=== PATIENT | male | born 1955 | race Caucasian/White ===

== ENCOUNTER 2022-09-10 00:38 | Day surgery (SDC) | payer MEDICARE, SELFPAY ==
[2022-09-03 08:41] VITALS: BMI 22.4
[2022-09-10 08:14] VITALS: BP 103/67; PULSE 113; RESP 20; TEMP 36.3; O2SAT 98
[2022-09-10] MEDS: LACTATED RINGERS 1,000 ML 150 ML IV CONT (08:25)
--- NOTE | 2022-09-10 08:38 | PM.HPGS ---
History of Present Illness History of Present Illness Consent: Risks, benefits, and alternatives have been discussed and questions answered. Patient agrees to proceed with procedure. Chief complaint: GERD, Hx of colon polyps Narrative: Shady Herman is a 67 year old male with large polyps removed about 2 years ago, also gerd relatively well controlled with famotidine but no recent egd Review of Systems Constitutional: Constitutional: Denies headache(s) and Denies weakness Eyes: Eyes: Denies blurry vision ENT: Reports Normal hearing present, Denies headache(s) and Denies neck pain Cardiovascular: Cardiovascular: Denies chest pain and Denies dyspnea Respiratory: Respiratory: Denies dyspnea Gastrointestinal: Gastrointestinal: Reports no additional gastrointestinal complaints Genitourinary: Genitourinary: Denies dysuria Musculoskeletal: Musculoskeletal: Denies neck pain Integumentary/Breasts: Skin/Breast: Denies dry skin Neurologic: Reports Normal hearing present, Denies headache(s) and Denies weakness Psychiatric: Psychiatric: Denies anxiety Endocrine: Endocrine: Denies change in body appearance Hematologic/Lymphatic: Hematologic/Lymphatic: Denies easy bleeding Allergic/Immunologic: Allergic/Immunologic: Denies urticaria PMF Past Medical History Medical History (Updated 05/06/22 @ 08:38 by Duke Tidwell MD) Adenomatous colon polyp Allergies Coronary artery disease GERD (gastroesophageal reflux disease) Heart disease Hypertension Social History Social History Smoking packs per day: 1.5 Smoking cigarettes per day: 30.0 Years smoked: 31 Smoking pack-years: 46.50 Smoking status: Former smoker Tobacco type: cigarettes Smoking end date: 09/26/08 Alcohol intake: never Substance use: never Substance use type: does not use Living arrangements: with family Spiritual care concerns: No Meds Home Medications and Allergies Home Medications Medication Instructions Recorded Confirmed Type aspirin 81 mg tablet,delayed 81 mg PO DAILY 09/03/21 09/10/22 History release clopidogrel 75 mg tablet 75 mg PO DAILY 09/03/21 09/10/22 History metoprolol succinate 100 mg 100 mg PO BID 09/03/21 09/10/22 History tablet,extended release 24 hr simvastatin 20 mg tablet 20 mg PO HS 09/03/21 09/10/22 History famotidine 20 mg tablet 20 mg PO BID 07/30/22 09/10/22 History Allergies Allergy/AdvReac Type Severity Reaction Status Date / Time Heparin Analogues Allergy Mild Unknown Verified 09/10/22 08:12 Vital Signs Vital Signs - 24 hr 09/10/22 08:14 Temperature 97.3 F L Pulse Rate 113 H Respiratory Rate 20 Blood Pressure 103/67 Pulse Oximetry 98 Oxygen Delivery Room Air Exam Const: General: comfortable and no acute distress HENMT: Face/Nose/Sinus: Normal nares present Eyes: General: appearance normal, both eyes and all related structures Neck: Neck: no JVD Resp: Auscultation: clear to auscultation bilaterally Cardio: Rate: regular rate Rhythm: regular rhythm GI: Inspection: non-distended GI Palp: Yes Soft to palpation Skin: General skin exam: normal color Neuro: General: gait normal Speech: normal speech Extrem: General: normal to inspection Psych: Mental Status: mental status grossly normal Assessment and Plan Assessment and plan (1) Adenomatous colon polyp: Code(s): D12.6 - Benign neoplasm of colon, unspecified Status: Acute Assessment and Plan: colonoscopy (2) GERD (gastroesophageal reflux disease): Code(s): K21.9 - Gastro-esophageal reflux disease without esophagitis Status: Acute Assessment and Plan: egd with bx on pepcid
--- NOTE | 2022-09-10 08:38 | WPDANESEPPF ---
Anes - Initial Pre Proc Eval Procedure: Operation Date: 09/10/22 09:00 Proposed Procedures p Esophagogastroduodenoscopy & Screening Colonoscopy - Duke Tidwell MD Date/Time: 09/10/22 08:38 Surgeon: Duke Tidwell MD Pre Op Diagnosis: GERD, Hx of colon polyps Patient Data Age: 67 Gender: M Height: 1.83 m Weight: 68.8 kg Last Vital Signs Temp 97.3 F L 09/10/22 08:14 Pulse 113 H 09/10/22 08:14 Resp 20 09/10/22 08:14 BP 103/67 09/10/22 08:14 Pulse Ox 98 09/10/22 08:14 O2 Del Method Room Air 09/10/22 08:14 Allergies Allergy/AdvReac Type Severity Reaction Status Date / Time Heparin Analogues Allergy Mild Unknown Verified 09/10/22 08:12 Home Medications Medication Instructions Recorded Confirmed Type aspirin 81 mg tablet,delayed 81 mg PO DAILY 09/03/21 09/10/22 History release clopidogrel 75 mg tablet 75 mg PO DAILY 09/03/21 09/10/22 History metoprolol succinate 100 mg 100 mg PO BID 09/03/21 09/10/22 History tablet,extended release 24 hr simvastatin 20 mg tablet 20 mg PO HS 09/03/21 09/10/22 History famotidine 20 mg tablet 20 mg PO BID 07/30/22 09/10/22 History Patient hx anesthesia problems: none Family hx anesthesia problems: none Results Review: All pre-operative results and documents have been reviewed as part of the pre-operative evaluation. [facility] Past Medical History Medical History (Updated 05/06/22 @ 08:38 by Duke Tidwell MD) Adenomatous colon polyp Allergies Coronary artery disease GERD (gastroesophageal reflux disease) Heart disease Hypertension Social History Social History Smoking packs per day: 1.5 Smoking cigarettes per day: 30.0 Years smoked: 31 Smoking pack-years: 46.50 Smoking status: Former smoker Tobacco type: cigarettes Smoking end date: 09/26/08 Alcohol intake: never Substance use: never Substance use type: does not use Living arrangements: with family Spiritual care concerns: No Anes - Eval Final PreProcedure Day of Procedure 09/10/22 08:38 Patient weight: normal Heart: regular rate and rhythm Lungs: clear to auscultation Airway: Mallampati scale class II Neurological: alert and oriented Last oral intake: >/= 8 hours ASA classification: III Emergent: no Anesthetic plan: proceed Anesthesia type and monitoring: general GIVS and standard monitoring Results Review: All pre-operative results and documents have been reviewed as part of the pre-operative evaluation. Informed Consent: The patient's anesthetic plan and its attendant risks and benefits were discussed with the patient/family/POA. Questions were solicited and answers provided to the satisfaction of the patient/family/POA.
--- NOTE | 2022-09-10 09:08 | SUR.OPER ---
EGD END TIME 853 COLON START TIME 858
[2022-09-10 09:13] VITALS: BP 132/108; PULSE 89; RESP 30; O2SAT 100
[2022-09-10 09:23] VITALS: BP 116/89; PULSE 105; RESP 23; O2SAT 100
[2022-09-10 09:27] VITALS: BP 98/63; PULSE 107; RESP 23; O2SAT 100
== END 2022-09-10 09:37 | disposition home or self-care (01) ==
PROVIDERS: PCP Internal Medicine; Visit Provider Internal Medicine Gastroenterology
PROC: 0DJ08ZZ Inspection of Upper Intestinal Tract, Via Natural or Artificial Opening Endoscopic (ICD-10-PCS; CPT 43235; principal; 2022-09-10 09:00)
DX: Z12.11 Encounter for screening for malignant neoplasm of colon (principal); K57.30 Diverticulosis of large intestine without perforation or abscess without bleeding; D12.0 Benign neoplasm of cecum; K21.9 Gastro-esophageal reflux disease without esophagitis; K29.70 Gastritis, unspecified, without bleeding; I25.10 Atherosclerotic heart disease of native coronary artery without angina pectoris; I11.9 Hypertensive heart disease without heart failure; Z87.891 Personal history of nicotine dependence; Z79.02 Long term (current) use of antithrombotics/antiplatelets; Z79.82 Long term (current) use of aspirin
CPT/HCPCS: 43239; 45385; 87081; 88305; 88342; J2704; J7120

== ENCOUNTER 2023-04-06 09:11 | Outpatient (CLI) | payer MEDICARE, SELFPAY ==
--- NOTE | ~2023-04-06 | CT_ITS ---
EXAMINATION: CT lung screening DATE: 04/06/2023 09:27 INDICATION: Personal history of nicotine dependence, prior smoker with 30 pack year history TECHNIQUE: Computed tomography (CT) of the chest was performed without intravenous contrast. The dose -length product (DLP) was 96.65 mGy-cm. Automated exposure control and iterative reconstruction techn ique were employed. COMPARISON: None FINDINGS: There is moderate to severe emphysema. There are areas of scarring in the lower lobes. Smal l nodules of the right upper lobe measure up to 3 mm. There is a 5 mm nonsolid nodule of the right nicolas ng apex. No pleural effusion or pneumothorax. There are changes of coronary artery bypass grafting. C ardiomegaly is noted. There are no pathologically enlarged thoracic lymph nodes. Venous collaterals a re noted in the chest wall. A dual-lead cardiac pacemaker of the left chest wall ends with leads in e xpected locations. Cholelithiasis is noted. There is severe scarring and atrophy posterior medially i n the right kidney. IMPRESSION: 1. Lung-RADS category 2: Benign appearance or behavior. Continue annual screening with noncontrast lo w-dose chest CT in 12 months. Reviewed, dictated and finalized at location B. IMPRESSION: 1. Lung-RADS category 2: Benign appearance or behavior. Continue annual screeni ng with noncontrast low-dose chest CT in 12 months.
== END 2023-04-06 09:12 | disposition home or self-care (01) ==
PROVIDERS: PCP Internal Medicine; Visit Provider Registered Nurse
DX: Z12.2 Encounter for screening for malignant neoplasm of respiratory organs (principal); F17.211 Nicotine dependence, cigarettes, in remission
CPT/HCPCS: 71271

== ENCOUNTER 2025-04-10 09:58 | Outpatient (CLI) | payer MEDICARE, SELFPAY ==
--- NOTE | ~2025-04-10 | CT_ITS ---
CT Scan of the Chest without Contrast: Clinical Indication: Lung cancer screening, nicotine dependence Technique: Contiguous sections were acquired throughout the chest without intravenous contrast. Dose reduction technique was used on this scan by utilizing automated exposure control and iterative recon struction technique. The dose-length product (DLP) was 112.20 mGy-cm. COMPARISON: 04/06/2023 Findings: There is no evidence of any significant mediastinal, hilar or axillary lymphadenopathy. There are ath erosclerotic calcifications of the aorta and coronary arteries. There is no evidence of pleural or pericardial effusion. Stable right apical groundglass nodule. Stable 3 mm apical nodule. Stable scarring right upper lobe p osteriorly. Stable bilateral lower lobe scarring. Stable nodularity with calcification at the right l beto base. Bibasilar emphysematous change present. Images through the upper abdomen reveal small calcified gallstone. Impression: Lung RADS 2: Benign appearance. 12 month follow-up screening CT advised. Reviewed, dictated and finalized at location . Impression: Lung RADS 2: Benign appearance. 12 month follow-up screening CT advised.
== END 2025-04-10 09:59 | disposition home or self-care (01) ==
PROVIDERS: PCP Internal Medicine; Visit Provider Registered Nurse
DX: Z12.2 Encounter for screening for malignant neoplasm of respiratory organs (principal); Z87.891 Personal history of nicotine dependence
CPT/HCPCS: 71271

== ENCOUNTER 2025-05-05 16:10 | Inpatient (IN) | payer MEDICARE, SELFPAY ==
[2025-05-05] VITALS (15 sets, daily range): BP systolic 120–151; BP diastolic 73–102; PULSE 70–120; RESP 12–21; TEMP 36.3–36.7; O2SAT 96–100; BMI 20.8
--- NOTE | ~2025-05-05 | US_ITS ---
EXAMINATION:US venous doppler LE BI INDICATION:Leg pain TECHNIQUE: Multiple grayscale, color flow and Doppler images of the right and left lower extremity de ep venous systems were obtained and reviewed. COMPARISON:No prior studies for comparison. FINDINGS: The common femoral, superficial femoral and popliteal veins demonstrate normal respiratory variation, augmentation and compressibility. Color flow is also seen within the posterior tibial, pe roneal, greater saphenous and profunda veins. IMPRESSION: 1: No lower extremity deep venous thrombosis. Reviewed, dictated and finalized at location A.
--- NOTE | ~2025-05-05 | CT_ITS ---
EXAMINATION: CTA chest PE protocol DATE: 05/05/2025 17:20 INDICATION: palpitations, tachycardia, hx PE TECHNIQUE: Computed tomography angiography (CTA) of the chest was performed with 100 mL Omnipaque-350 intravenous contrast timed to evaluate the pulmonary arteries. Coronal maximum intensity projection 3D-reconstructions were created by the technologist. The dose-length product (DLP) was 347.72 mGy-cm. Automated exposure control and iterative reconstruction technique were employed. COMPARISON: CT lung screening 04/10/2025 and 04/06/2023. FINDINGS: Lung parenchyma and airways: Architectural simplification and extensive scarring in the lower lungs. 9 mm groundglass nodule in the right upper lobe. 4 mm solid nodule in the right upper lobe, stable si nce 2022, likely benign. Patent airways. Pleura: Unremarkable. Thoracic inlet, axillae and chest wall: Asymmetric gynecomastia on the left. Venous collaterals in th e right chest wall. Thoracic aorta: No significant dilation. No dissection. Mediastinum: Dilated central pulmonary arteries enlarged pretracheal lymph nodes. Heart and pericardium: Status post CABG. Pacing leads terminating in good position. Cardiomegaly. RV/ LV ratio less than 1. Coronary artery calcifications: Moderate. Upper abdomen: Hepatic vein reflux. Gallstone versus adjacent vascular calcification. Right renal sca rring. Bones: No acute osseous finding. Pulmonary arteries: Study quality: Motion artifact limits evaluation of the subsegmental and segmenta l right middle lobe and right lower lobe pulmonary arteries. Small nonocclusive segmental pulmonary e mboli in the right upper lobe. IMPRESSION: Small nonocclusive segmental pulmonary emboli in the right upper lobe. Small clot burden, noting inad equate visualization of the subsegmental and segmental arteries in the right middle lobe and right lo wer lobe. RV/LV ratio less than 1. Hepatic vein reflux as can be seen with right heart dysfunction. 9 mm anterior groundglass nodule in the right upper lobe, slightly increased in size since 2022 exami nation, recommend referral for resection. Asymmetric left gynecomastia, recommend mammography and breast ultrasound. Mediastinal lymphadenopathy. Reviewed, dictated and finalized at location K. IMPRESSION: Small nonocclusive segmental pulmonary emboli in the right upper lobe. Small cl ot burden, noting inadequate visualization of the subsegmental and segmental ar teries in the right middle lobe and right lower lobe. RV/LV ratio less than 1. Hepatic vein reflux as can be seen with right heart dysfunction. 9 mm anterior groundglass nodule in the right upper lobe, slightly increased in size since 2022 examination, recommend referral for resection. Asymmetric left gynecomastia, recommend mammography and breast ultrasound. Mediastinal lymphadenopathy.
--- OUTSIDE RECORDS SUMMARY | 2025-05-05 16:13 | XMS_ITS | Continuity of Care Document ---
Author Organization [facility] Address [address] [place] [address] Phone Care Team Providers Care Entertainment Usher Name Role Phone María Mike MD Unavailable Unavailable Allergies, Adverse Reactions, Alerts Substance Reaction Status Criticality No Known Drug Allergies Other Active No I nformation Medications Medication Instructions Dosage Effective Dates (start - stop) Status Comments COUMADIN 7.5 MG TABLET 1 QD-daily - Active ENALAPRIL MALEATE 20MG TABS 1 BID - Active ZOCOR 20MG TABS 1 QHS - Active BRAND NAME ONLY. PLEASE CALL PT WHEN RXS ARE READY ENALAPRIL MALEATE 20MG TABS 1 BID - Active ACCUPRIL 40 MG TABLET 1 QD-daily - Active ATENOLOL 100 MG TABLET 1 QD - Active MAXZIDE 75-50MG TABS 1 QD - Active FUROSEMIDE 40MG TABS 1.5 BID - Active COUMADIN 6 MG TABLET 1 QD-daily - No Longer Active COUMADIN 6 MG TABLET 1 QD-daily - No Longer Active COUMADIN 7.5 MG TABLET 1 QD-daily - No Longer Active COUMADIN 6 MG TABLET 1 QD-daily - No Longer Active ATENOLOL 100 MG TABLET 1 QD - No Longer Active ATENOLOL 50MG TABS 1 QD - No Longer Active LOPRESSOR 50MG TABS 1 QID - No Longer Active COUMADIN 4MG TABS 1 QD No Longer Active ACCUPRIL 20MG TABS 1 QD No Longer Active Advance Directives Directive Yes / No Effective Date File Name No Information Encounters Encounter Description Practice Location Reason(s) For Visit Diagnoses Date Provider Providers Copied on Encounter [facility], [address], [place], [place], [address] , tel:[phone] [facility] No Information 1 Cee Mcknight. [address], [address], [place], [place], [address], . tel: [phone] [facility], [address], [place], [place], [address] , tel: [phone] [facility] LONG-TERM USE ANTICOAGULATRI AL FIBRILLATION 7 Cee Mcknight. [address], [address], [place], [place], [address], . tel: [phone] [facility], [address], [place], [place], [address] , tel:[phone] [facility] DVRTCLO COLON W HMRHG 3 6 Cee Mcknight. [address], [address], [place], [place], [address], . tel: [phone] [facility], [address], [place], [place], [address] , tel:[phone] [facility] LONG-TERM USE MEDS NECVACCIN FOR INFLUENZABENIG N HYPERTENSIONSC REEN LIPOID DISORDERSHYPER LIPIDEMIA NEC/NOS 4200 6 Cee Mcknight. [address], [address], [place], [place], [address], . tel: [phone] [facility], [address], [place], [place], [address] , tel:[phone] [facility] DEEP PHLEBITIS-LEG NEC 8200 6 Cee Mcknight. [address], [address], [place], [place], [address], [place]. tel:[phone] [facility], [address], [place], [place], [address] , tel:[phone] [facility] CHR ISCHEMIC HRT DIS NOS 6 eCe Mcknight. [address], [address] , [place], [place], [address], [place]. tel:[phone] [facility], [address], [place], [place], [address] , [place] tel:[phone] [facility] CHF NOS 6 Conversion Doctor. [address] [place] [address], [place], [address], [place]. [facility], [address], [place], [place], [address] , tel:[phone] [facility] PULM EMBOL/INFARCT NEC 5 Cee Mcknight. [address] , [place], [place], [address], [place]. tel:[phone] [facility], [address], [place], [place], [address] , [place] tel:[phone] [facility] MITRAL VALVE DISORDER 5 Cee Mcknight. [address], [address] , [place], [place], [address], [place]. tel:[phone] [facility], [address], [place], [place], [address] , [place] tel:[phone] [facility] No Information 5 Cee Mcknight. [address], [address], [place], [place], [address], [place]. tel:[phone] [facility], [address], [place], [place], [address] , tel: [facility] HISTORY OF TOBACCO USEBENIGN NEOPLASM SKIN NOS 5 Cee Mcknight. [address], [address] , [place], [place], [address], [place]. tel:[phone] [facility], [address], [place], [place], [address] , [place] tel:[phone] [facility] VACCIN FOR INFLUENZA 3-200 3 Conversion Doctor. [address] [facility], [place], [address], [place]. [facility], [address], [place], [place], [address] , [place] tel: [facility] CARDIAC DYSRHYTHMIA NOS May- 8200 3 Eduard Peterson. [address], [address], [place], [place], [address], [place]. tel:[phone] [facility], [address], [place], [place], [address] , [place] tel: [facility] TACHYCARDIA NOS 9200 3 Cee Mcknight. [address], [address] , [place], [place], [address], [place]. tel:[phone] [facility], [address], [place], [place], [address] , [place] tel: [facility] ABDMNAL PAIN GENERALIZED 8200 3 Cee Mcknight. [address], [address], [place], [place], [address], [place]. tel:[phone] [facility], [address], [place], [place], [address] , [place] tel:[phone] Administration NONRHEUM TRICUSP MAURA DIS Byron- 5-200 1 Cee Mcknight. [address], [address], [place], [place], [address], [place]. tel:[phone] [facility], [address], [place], [place], [address] , [place] tel:[phone] [facility] GENERAL OSTEOARTHROSIS Apr-0 4-200 1 Cee Mcknight. [address], [address], [place], [place], [address], [place]. tel:[phone] [facility], [address], [place], [place], [address] , tel: [phone] Howard HUGO ND VAC STRPTCS PNEUMNI B 9-200 0 Conversion Doctor. [facility] [address] [facility], [place], [address], . Family History Family Member Type Diagnosis Age At Onset No Information Immunizations Vaccine Date Status Comments 67422 - Influenza administered Source: [place] Unspecified 96634 - Influenza administered Source: [place]specified 93007 - Influenza administered Source: [place] Unspecified 17292 - Pneumococcal_PPV23 administered S ource: Source Unspecified Payers Payer name Insurance type Covered alliance party ID Authoriza tion(s) No Information Social History Type Description Quantity Date Captured Comments Sex Male Smoking Status No Information Chief Complaint And Reason For Visit No Information Reason For Referral Reason For Referral No Information History Of Present Illness Encounter Date Complaint History Of Prese nt Illness No Information Functional Status Date Functional Assessmen t No Information Instructions Date Instruction Additional Infor mation No Information Assessments Type Assessment Date No Information Patient Care Teams Name Effective Dates (start - stop) Status Members No Information
--- OUTSIDE RECORDS SUMMARY | 2025-05-05 16:13 | XMS_ITS | Encounter Summary ---
Author Organization [facility] Address [facility] [place] [address] Care Team Providers Care Custom Framing Specialist Name Role Phone Anna Paredes Primary Care Provider [phone] Sissy Rice RN Unavailable [phone] Richard Montague MD Unavailable [phone] Encounter Details Date Type Department Care Team (Late st Contact Info) Description 02/11/2021 Prep for Procedure [facility] [place], [place] [id number] Eric Rowell MD [address] [id number] Social History Tobacco Use Types Packs/Day Years Used Date Smoking Tobacco: Former Cigarettes 1.5 31 0 01/15/1978 - 01/15/2009 Smokeless Tobacco: Never Alcohol Use Standard Drinks/Week Comments No 0 (1 standard drink = 0.6 oz pur e alcohol) AUDIT-C Answer Date Recorded Frequency of Alcohol Consumption Never 03/02/2019 Average Number of Drinks Not on file 019 Frequency of Binge Drinking Not on file 03/2019 PHQ-2 Answer Date Recorded PHQ-2 Score 0 08/21/2019 Sex and Gender Information Value Date Recorded Sex Assigned at Male 03/27/2025 8:46 AM CDT Legal Sex Male 6:56 PM CDT Gender Identity Not on file Sexual Orientation Not on file COVID-19 Exposure Response Date Recorded In the last month, have you been in contact with someone who was confirmed or suspected to have Coronavirus / COVID-19? No / Unsure 02/11/2021 1:18 PM CDT documented as of this encounter Plan of Treatment Not on file documented as of this encounter Results * PRE-SURGICAL/PRE-PROCEDURE CORONAVIRUS (COVID 19) (02/16/2021 11:10 AM CDT) CORONAVIRUS SARS COV 2 PCR (RESP) NOT DETECTED NOT DETECTED 02/17/2021 12:46 PM CDT [facility] Comment: A Not Detected (negative) test result for this test means that SARS-CoV-2 RNA was not present in the specimen above the limit of detection. A negative result does not rule out the possibility of COVID-19 and should not be used as the sole basis for treatment or patient management decisions. If COVID-19 is still suspected, based on exposure history together with other clinical findings, re-testing should be considered in consultation with public health authorities. Laboratory test results should always be considered in the context of clinical observations and epidemiological data in making a final diagnosis and patient management decisions. This patient specimen was tested using an FDA EUA pooling method. Negative results from pooled testing should not be treated as definitive. If the patient's clinical signs and symptoms are inconsistent with a negative result or results are necessary for patient management, then the patient should be considered for individual testing. In very rare cases, estimated at about 8 in 1,000 (0.8%) or less patient specimens with low viral loads may not be detected in sample pools due to the decreased sensitivity of pooled testing. Please review the Fact Sheets and FDA authorized labeling available for health care providers and patients using the following websites: https://www.[employer]/home/Covid-19/HCP/rc- jyfe-zpo5-ytyv-sheet.html https://www.[employer]/home/Covid-19/Patients/ az-yczz-uoq8-fact-sheet.html This test has been authorized by the FDA under an Emergency Use Authorization (EUA) for use by authorized laboratories. Due to the current public health emergency, [facility] is receiving a high volume of samples from a wide variety of swabs and media for COVID-19 testing. In order to serve patients during this public health crisis, samples from appropriate clinical sources are being tested. Negative test results derived from specimens received in non-commercially manufactured viral collection and transport media, or in media and sample collection kits not yet authorized by FDA for COVID-19 testing should be cautiously evaluated and the patient potentially subjected to extra precautions such as additional clinical monitoring, including collection of an additional specimen. Methodology: Nucleic Acid Amplification Test (NAAT) includes RT-PCR or TMA Additional information about COVID-19 can be found at the [facility] website: www.[employer]/Covid19. Test performed at [facility] [address] [address] [place] [address] Director: ALEXI ALFARO DO,MPH FIRST TEST NO 02/16/2021 12:41 PM CDT [facility] EMPLOYED IN HEALTHCARE NO 02/16/2021 12:41 PM CDT [facility] SYMPTOMATIC DEFINED BY CDC NO 02/16/2021 12:41 PM CDT [facility] DATE OF SYMPTOM ONSET UNKNOWN 02/16/2021 12:45 PM CDT [facility] HOSPITALIZATION STATUS NO 02/16/2021 12:41 PM CDT [facility] PATIENT IN ICU NO 02/16/2021 12:41 PM CDT [facility] RESIDENT OF [facility] NO 02/16/2021 12:41 PM CDT [facility] UNKNOWN 02/16/2021 12:45 PM CDT [facility] PATIENT'S RACE WHITE OR 02/16/2021 12:41 PM CDT [facility] ETHNICITY NONHISPANIC 02/16/2021 12:41 PM CDT [facility] SOURCE (QST) NASOPHARYNGEAL SWAB 02/16/2021 12:41 PM CDT [facility] NASOPHARYNGEAL SWAB / Unknown 02/16/2021 11:10 AM CDT us Eric Rowell MD MICROBIOLOGY - GENERAL ORDERABLE S Final Result [facility] [address] [place] [address], [email or web address] [address] [place] [address], documented in this encounter Visit Diagnoses Diagnosis Colonic mass- Primary Other specified disorder of intestines documented in this encounter Additional Health Concerns Infection Onset Date Last Indicated Resolved Time COVID-19 Rule Out 02/16/2021 02/16/2021 02/17/2021 12:46 PM CDT documented as of this encounter Care Teams Custom Framing Specialist Relationship Specialty Start Date End Date Anna Paredes APNP [address] [place] [address] PCP - General FAMILY PRACTICE 08/29/18 Sissy Rice, RN [address] [facility] [address] [place] [address] Replenishment Specialist (Ambulatory) REGISTERED NURSE 10/02/19 Richard Montague MD [address] [facility] [address] [place] [address] VASCULAR SURGERY 02/02/21 documented as of this encounter
--- OUTSIDE RECORDS SUMMARY | 2025-05-05 16:13 | XMS_ITS | Encounter Summary ---
Author Organization [facility] Address [facility] [place] [address] Care Team Providers Care Rn Infusion Name Role Phone Anna Paredes Primary Care Provider [phone] Akash Izquierdo MD Unavailable [phone] Sissy Rice RN Unavailable [phone] Richard Montague MD Unavailable [phone] Encounter Details Date Type Department Care Team (Late st Contact Info) Description 06/13/2020 Prep for Procedure [facility] [place], [place] [id number] Eric Rowell MD [address] [id number] Social History Tobacco Use Types Packs/Day Years Used Date Smoking Tobacco: Former Cigarettes Q uit: 01/15/2009 Smokeless Tobacco: Never Alcohol Use Standard [...] have Coronavirus / COVID-19? No / Unsure 06/16/2020 10:24 AM CDT documented as of this encounter Plan of Treatment Not on file documented as of this encounter Results * PRE-SURGICAL/PRE-PROCEDURE CORONAVIRUS (COVID 19) (06/13/2020 9:41 AM CDT) CORONAVIRUS SARS COV 2 PCR (RESP) NOT DETECTED NOT DETECTED 06/14/2020 10:25 PM CDT [facility] Comment: A Not Detected (negative) test result for this test means that SARS- CoV-2 RNA was not present in the specimen [...] a final diagnosis and patient management decisions. Please review the Fact Sheets and FDA authorized labeling available for health care providers and patients using the following websites: https://[email or web address]/home/Covid-19/HCP/NAAT/fact-sheet2 https://[email or web address]/home/Covid-19/Patients/NAAT/ fact-sheet2 This test has been authorized by the FDA under an Emergency Use Authorization (EUA) for use by authorized laboratories. Due to the current public health emergency, [employer] is receiving a high volume of samples [...] Methodology: Nucleic Acid Amplification Test (NAAT) includes PCR or TMA Additional information about COVID-19 can be found at the [employer] website: [email or web address]. Test performed at [facility] [address] [place] [address] Director: ALEXI ALFARO DO,MPH FIRST TEST NO 06/13/2020 11:16 AM CDT [facility] EMPLOYED IN HEALTHCARE NO 06/13/2020 11:16 AM CDT [facility] SYMPTOMATIC DEFINED BY CDC NO 06/13/2020 11:16 AM CDT [facility] DATE OF SYMPTOM ONSET =FASTING UNKNOWN 06/13/2020 11:17 AM CDT [facility] HOSPITALIZATION STATUS NO 06/13/2020 11:16 AM CDT [facility] PATIENT IN ICU NO 06/13/2020 11:16 AM CDT [facility] RESIDENT OF [facility] NO 06/13/2020 11:16 AM CDT [facility] NOT 06/13/2020 11:17 AM CDT [facility] PATIENT'S RACE WHITE OR 06/13/2020 11:16 AM CDT [facility] ETHNICITY NONHISPANIC 06/13/2020 11:16 AM CDT [facility] SOURCE (QST) NASOPHARYNGEAL SWAB 06/13/2020 11:16 AM CDT [facility] NASOPHARYNGEAL SWAB / Unknown 06/13/2020 9:41 AM CDT us Eric Rowell MD MICROBIOLOGY - GENERAL ORDERABLE S Final Result [facility] [address] [place] [address], [facility] [address] [address], documented in this encounter Visit Diagnoses Diagnosis Screening for colorectal cancer- Primary Special screening for malignant neoplasms, colon documented in this encounter Additional Health Concerns Infection Onset Date Last Indicated Resolved Time COVID-19 Rule Out 06/13/2020 06/13/2020 06/14/2020 10:25 PM CDT COVID-19 Rule Out 02/16/2021 02/16/2021 02/17/2021 12:46 PM CDT documented as of this encounter Care Teams Rn Infusion Relationship Specialty Start Date End Date Anna Paredes APNP [address] [place] [id number] PCP - General FAMILY PRACTICE 08/29/18 Akash Izquierdo MD [address] [place] [phone] PCP - [facility] - [facility] Attributed Provider 11/24/18 09/26/20 Sissy Rice, RN [address] [facility] [address] [place] [address] [employer] Machine Operator (Ambulatory) REGISTERED NURSE 10/02/19 Richard Montague MD [address] [facility] [address] [place] [address] VASCULAR SURGERY 02/02/21 documented as of this encounter
--- OUTSIDE RECORDS SUMMARY | 2025-05-05 16:13 | XMS_ITS | Clinical Summary ---
Author Organization [employer] [address] [facility] Address [address] [place] [address] Care Team Providers Care Lacer And Tier Name Role Phone Akash Izquierdo MD Primary Care Provider [phone] Allergies Active Allergy Reactions Criticality Noted Date Comments Heparin Unknown 06/14/2018 Heparin Agents Heparin Analogues Muscle Pain Medium 06/14/2018 Heparin Agents Mold Unknown 10/17/2012 Medications cetirizine (ZyrTEC) 10 mg tablet Take 10 mg by mouth 1 time daily as needed for Allergies. Active Flaxseed Oil Oil 100 mg by Misc.(Non-Drug; Combo Route) route daily. Active multivitamins-mi nerals-lutein (CENTRUM SILVER) Tablet Take 1 Tablet by mouth daily. Active clopidogreL (PLAVIX) 75 mg Tablet Take 75 mg by mouth daily. Active aspirin (ASPIR-81 ORAL) Take 1 Tablet by mouth daily. Active simvastatin (ZOCOR) 20 mg tablet TAKE 1 TABLET BY MOUTH ONCE DAILY AT BEDTIME 90 Tablet 2 Active Additional Information Patient taking differently: 20 mg Oral DAILY AT BEDTIME, Reported on 03/28/2025 pantoprazole (PROTONIX) 40 mg Tablet, Delayed Release (E.C.) Take 40 mg by mouth daily. 3 Active Biotin 10,000 mcg Capsule Take 1 Capsule by mouth daily. Active spironolactone (ALDACTONE) 25 mg tablet Take 1/2 (one-half) tablet by mouth once daily 30 Tablet 5 4 Active losartan (COZAAR) 50 mg tablet Take 1 Tablet (50 mg) by mouth daily. 100 Tablet 3 5 Active metoprolol succinate (TOPROL XL) 100 mg Extended Release 24 hour tabletIndication s:Encounter for long-term (current) use of medications Take 1 tablet by mouth twice daily 180 Tablet 1 5 Active Active Problems Patient Care Coordination No te Formatting of this note migh t be different from the original. Compound Worker - Dr. Bradford De Luna MD, [facility], [facility] Heart and Vascular - [address] [facility] Dr Calixto - [facility] - Vascular Surgery - Dr. Richard Montague [address] [place] [address] Problem Noted Date Diagnosed Date Decreased cardiac ejection fraction 02/28/2023 Overview (02/28/2023): Added automatically from request for surgery [id number] Coronary artery disease invo lving nome coronary artery of nome heart without angina pectoris 02/14/2020 Dyslipidemia 02/14/2020 Nonrheumatic mitral valve regurgitation 02/14/20 20 SSS (sick sinus syndrome) 12/14/2018 Cardiac pacemaker in situ 12/14/2018 Atypical atrial flutter 10/11/2018 Paroxysmal atrial fibrillation 06/29/2018 Symptomatic bradycardia 06/29/2018 Encounters Date Type Department Care Team Description 05/01/2025 External Device Data STL ABSTRACTION Provider, Abstract 04/17/2025 Results Follow-Up [facility] - [address] [facility] [id number] [address] Cassandra Krueger FNP ECHO COMPLETE - CONTRAST AND STRAIN IF INDICATED 04/16/2025 8:50 AM CDT - 04/16/2025 11:59 PM CDT Hospital Encounter [facility] Heart and Vascular Testing [facility] [address] [address] Cassandra Krueger FNP Discharge Disposition: Home or Self Care 03/28/2025 10:00 AM CDT Office Visit [facility] - [address] [facility] 300 [address] [facility] [address] [place] [address] Heart failure with mid-range ejection fraction (HFmEF) (CMS/HCC) (Primary Dx); Paroxysmal atrial fibrillation (CMS/HCC); Coronary artery disease involving nome coronary artery of nome heart without angina pectoris; NICM (nonischemic cardiomyopathy) (CMS/HCC); ICD (implantable cardioverter-defibril lator) in place; Mixed hyperlipidemia 03/12/2025 External Device Data STL ABSTRACTION Provider, Abstract 02/19/2025 2:30 PM CDT Procedure visit [facility] - [address] [facility] 202 [address] [facility] [address] [place] [address] Sick sinus syndrome (CMS/HCC) (Primary Dx); Atypical atrial flutter (CMS/HCC); Cardiac defibrillator in place; Chronic systolic congestive heart failure (CMS/HCC); Ischemic cardiomyopathy 02/19/2025 Results Follow-Up [facility] - [address] [place] [phone] [facility] [address] [place] [address] Eric Dodson MD ICD ANALYSIS REMOTE, UP TO 90 DAYS 02/13/2025 External Device Data STL ABSTRACTION Provider, Abstract 02/12/2025 External Device Data STL ABSTRACTION Provider, Abstract from Last 3 Months Family History Medical History Relation Name Comments Hypertension Brother Other Brother Myocardial infa rction, cause of Cancer Father Hypertension Father Hypertension Mother Relation Name Status Comments Brother Father Mother Social History Tobacco Use Types Packs/Day Years Used Date Smoking Tobacco: Former Cigarettes Q uit: 12/28/2008 Smokeless Tobacco: Never Tobacco Cessation:Counseling Given: Not Answered Alcohol Use Standard Drinks/Week Comments No 0 (1 standard drink = 0.6 oz pur e alcohol) Sex and Gender Information Value Date Recorded Sex Assigned at Not on file Legal Sex Male 5:45 PM CDT Gender Identity Not on file Sexual Orientation Not on file Last Filed Vital Signs Vital Sign Reading Time Taken Comments Blood Pressure 122/68 03/28/2025 9:50 AM CDT Pulse 80 03/28/2025 9:50 AM CDT Temperature 37.1 C (98.7 F) 09/01/2023 7:00 PM CELL ASSEMBLY PINNER Respiratory Rate 15 09/01/2023 7:00 PM CELL ASSEMBLY PINNER Oxygen Saturation 96% 12/11/2024 11:02 AM CDT Inhaled Oxygen Concentration - - Weight 71.8 kg (158 lb 6.4 oz) 03/28/2025 9:50 A M CDT Height 180.3 cm (5' 11) 03/28/2025 9:50 AM CDT Body Mass Index 22.09 03/28/2025 9:50 AM CDT Plan of Treatment Upcoming Encounters Date Type Department Care Team (Late st Contact Info) Description 05/21/2025 11:15 AM CDT Procedure visit [facility] - [address] [facility] 202 [address] [facility] [address] [place] [phone] 06/25/2025 9:00 AM CDT Office Visit [facility] - [address] [facility] 202 [address] [facility] [address] [place] [phone] Donita Barboru, SAWYER [address] [facility] 202 [place] [phone] 04/10/2026 9:30 AM CDT Office Visit [facility] - [address] [facility] 300 [address] [facility] [address] [place] [phone] Cassandra Krueger FNP [address] [facility] [address] [place] [address] Health Maintenance Due Date Last Done Comments DTAP/TDAP/TD VACCINES (1 - Tdap) 1976 PNEUMOCOCCAL VACCINE 50+ YEA RS (1 of 2 - PCV) 1976 FIT-DNA Q 3 years 2002 FIT/FOBT Q 1 year 2002 Flex Sig/CT Colonography Q 5 years 2002 ZOSTER VACCINE (1 of 2) 2007 RSV VACCINE (60+ or ) (1 - Risk 60-74 years 1-dose series) 2017 INFLUENZA VACCINE (#1) 2025 07/10/2024, 2022 COVID-19 Vaccine (6 - 2023-2 5 season) 2025 03/27/2025, 12/06/2021, 08/08/2021, Additional history exists COLORECTAL SCREENING 09/10/2032 09/10/2022, 02/20/20 Colorectal Cancer Screening 09/10/2032 Abdominal Aortic Aneurysm (A AA) Screening Completed 03/17/2021, 10/14/2020 Medical Devices Implanted Type Area Top Executive Device Identifier Shelf Expiration Date Model / Serial / Lot Defib Icd Resonate X4 Df4 Sound Engineer-D G447 - [id number] Implanted:Qt y: 1 on 09/01/2023 at [facility] Defibrillator Left: Chest [employer] BEN 06/16/2025 G447 / [id number] / Ra Lead-10/23/19 19 Implanted: by Darwin Calixto MD (Quantity not on file) Lead Heart FAD ? IO SCI- COLD ROLL PACKER SHEET IRON 10/10/2020 7741-52 / [id number] / [id number] Description:RA Lead Lead [place] 4 Front Af Sc 64cm 0673 - [id number] Implanted:Qt y: 1 on 09/01/2023 at [facility] Lead Left: Chest [employer]- SELMA INTERVENTIONS 03/17/2025 06 / [id number] / Lead Pace Acuity Sprl L 95cm X4 4 Plr 4675-95 - [id number] Implanted:Qt y: 1 on 09/01/2023 at [facility] Lead Left: Chest [employer] BEN 07/26/2024 [id number] / [id number] / [id number] Envelope Lrg Mr 2.9x3.3in Implant Mesh Pulse Gen Bag [id number] - [id number] Implanted:Qt y: 1 on 09/01/2023 at [facility] Mesh Left: Chest [employer]- CARD RHYTHM MGMT 05/26/2024 [id number] / / [id number] Explanted Type Area Top Executive Device Identifier Shelf Expiration Date Model / Serial / Lot Rv Lead- 9 Implanted: by Darwin Calixto MD (Quantity not on file) Explanted:Qty : 1 on 09/01/2023 by Junior Horowitz MD at [facility] Lead Heart [employer]- COLD ROLL PACKER SHEET IRON 05/21/2020 [id number] / [id number] / [id number] Description:Implant date 09/27 Upgrade to BiV ICD RV lead Pacemaker-09/27 Implanted: by Darwin Calixto MD (Quantity not on file) Explanted:Qty : 1 on 09/01/2023 by Junior Horowitz MD at [facility] Pacemaker Left: Chest [employer]- COLD ROLL PACKER SHEET IRON 08/22/2020 [id number] / [id number] / [id number] Description:Implant date 09/[address] Pacemaker Procedures Procedure Name Priority Date/Time Associated Diagnosis Comments ECHO COMPLETE Routine 04/16/2025 9:50 AM CDT NICM (nonischemic cardiomyopathy) (CMS/HCC) MA REM INTERROG PM/LDLS PM/IDS <90 D TECH REVIEW Routine 02/19/2025 5:28 PM CDT Sick sinus syndrome (CMS/HCC) Atypical atrial flutter (CMS/HCC) Cardiac defibrillator in place Chronic systolic congestive heart failure (CMS/HCC) Ischemic cardiomyopathy MA INTERROGATION EVAL REMOTE </90 D //CEMETERY LABORER LD DFB Routine 02/19/2025 5:28 PM CDT Sick sinus syndrome (CMS/HCC) Atypical atrial flutter (CMS/HCC) Cardiac defibrillator in place Chronic systolic congestive heart failure (CMS/HCC) Ischemic cardiomyopathy from Last 3 Months Results * ECHO COMPLETE - CONTRAST AND STRAIN IF INDICATED (04/16/2025 9:50 AM CDT) EJECTION FRACTION 42 INTERFACE SYSTEM 04/16/2025 9:05 AM CDT Narrative INTERFACE SYSTEM - 04/16/2025 11:50 AM CDT [facility] Heart and Vascular Testing Transthoracic Echocardiogram Patient: Shady Herman Study ID: [id number] Gender: M : 1955 Age: 69 Race: SUNG Height 180.3cm Study Date: 04/16/2025 Weight: 71.9kg Access. #: [id number] BP: 125 / 65 *Referring Physician:Cassandra Arredondo Brooke *Ordering Physician:Cassandra Arredondo *[employer] Supervisor:Maulik Perez RDCS, Consuelo hosiery mender: Nurse: Indications: NICM. History: PMH: CAD. HLD. SSS. Defibulator. PAF. Risk factors: The patient is a former tobacco user. Hypertension. STUDY CONCLUSIONS: SUMMARY: - Left ventricle: The cavity size was normal. Wall thickness was increased in a pattern of mild LVH. Global systolic function is moderately reduced. For Epic reporting: the left ventricular ejection fraction is 42% . There is moderate diffuse hypokinesis. Left ventricular diastolic function parameters are normal. - Aortic valve: Trivial regurgitation. - Mitral valve: Mild to moderate regurgitation. - Left atrium: The atrium is moderately dilated. - Right ventricle: The cavity size is normal. - Tricuspid valve: Moderate regurgitation. - Pulmonary arteries: Systolic pressure was mildly to moderately increased. The peak systolic pressure is 45mm Hg. - GLS = -10.4. Impressions: Compared to 12/13/23, the LV Ejection fraction is slightly lower. Comparison: Prior Study Date: 12/13/2023. Cardiac Anatomy: LEFT VENTRICLE: The cavity size was normal. Wall thickness was increased in a pattern of mild LVH. Global systolic function is moderately reduced. For Epic reporting: the left ventricular ejection fraction is 42% . There is moderate diffuse hypokinesis. Global longitudinal strain was -10.4% (GLS is abnormal if greater than -16, i.e. -15). Left ventricular diastolic function parameters are normal. AORTIC VALVE: Structurally normal valve. Trileaflet. There was no stenosis. Trivial regurgitation. The mean systolic gradient is 1mm Hg. The peak systolic gradient is 2mm Hg. The LVOT to aortic valve VTI ratio is 0.71. The valve area is 2.7cm^2. The ratio of LVOT to aortic valve peak velocity is 0.69. AORTA: Aortic root: The root is normal-sized. Ascending aorta: The vessel is normal-sized. MITRAL VALVE: Structurally normal valve. Mild to moderate regurgitation. The mean diastolic gradient is 1mm Hg. The peak diastolic gradient is 5mm Hg. LEFT ATRIUM: The atrium is moderately dilated. RIGHT VENTRICLE: The cavity size is normal. Pacer wire or catheter noted in right ventricle. Systolic function is mildly reduced. PULMONIC VALVE: Structurally normal valve. No significant regurgitation. TRICUSPID VALVE: Structurally normal valve. Moderate regurgitation. PULMONARY ARTERY: Systolic pressure was mildly to moderately increased. RIGHT ATRIUM: The atrium was normal in size. SYSTEMIC VEINS: Inferior vena cava: The IVC is normal-sized. PERICARDIUM: There is no pericardial effusion. Measurements Left ventricle Value Ref 12/13/2023 GLS, 2D -10.4 % --------- IVS, ED, LAX (H) 1.2 cm 0.6 - 1.0 LANA, LAX chord (N) 5.1 cm 4.2 - 5.8 5.6 LANA/bsa, LAX chord (N) 2.7 cm/m^2 2.2 - 3.0 2.9 IVS, ED (H) 1.2 cm 0.6 - 1.0 1.0 PW, ED (H) 1.4 cm 0.6 - 1.0 0.9 EDV, 2-p (N) 80 ml 62 - 150 128 ESV, 2-p (N) 46 ml 21 - 61 66 EF, 2-p (L) 42 % 52 - 72 49 SV, 2-p 34 ml --------- 62 SV/bsa, 2-p 17.8 ml/m^2 --------- 32.2 E', med angelina, TDI (N) 12.5 cm/sec >=7.0 6.4 E/e', med angelina, TDI 7 --------- 9 LVOT Value Ref 12/13/2023 Diam, S 2.2 cm --------- 2.3 Area 3.8 cm^2 --------- 4.2 Peak pradeep, S 0.54 m/sec --------- 0.56 VTI, S 11.5 cm --------- 10.1 Right ventricle Value Ref 12/13/2023 LANA minor ax, A4C base (N) 3.9 cm 2.5 - 4.1 5.4 LANA minor ax, A4C mid (N) 2.6 cm 1.9 - 3.5 4.2 LANA major ax, A4C (L) 5.2 cm 5.9 - 8.3 8.5 TAPSE, MM (L) 1.6 cm >=1.7 0.9 Pressure, S 45 mm Hg --------- 61 S' lateral (L) 9.4 cm/sec >=9.5 6.9 Left atrium Value Ref 12/13/2023 AP dim, ES (N) 4.0 cm 3.0 - 4.0 4.9 AP dim index, ES (N) 2.1 cm/m^2 1.5 - 2.3 2.5 SI dim, A4C 6.6 cm --------- 7.4 Area ES, A4C (H) 31 cm^2 <=20 30 Area/bsa ES, A4C 16.02 cm^2/m^2 --------- 15.49 SI dim, A2C 6.0 cm --------- 7.2 SI dim, shorter 6.0 cm --------- 7.2 Vol, ES, 1-p A2C (H) 100 ml 18 - 58 111 Vol/bsa, ES, 1-p A2C (H) 52 ml/m^2 11 - 43 58 Vol, ES, 2-p 110 ml --------- 107 Vol/bsa, ES, 2-p (H) 58 ml/m^2 16 - 34 55 LA/Ao root ratio 1.33 --------- 1.53 Aortic valve Value Ref 12/13/2023 Peak v, S 0.8 m/sec --------- 0.8 Mean v, S 0.48 m/sec --------- 0.49 VTI, S 16.1 cm --------- 14.7 Accel time 120 ms --------- Mean grad, S 1 mm Hg --------- 1 Peak grad, S 2 mm Hg --------- 3 LVOT/AV, VTI ratio 0.71 --------- 0.69 EMERSON, VTI 2.7 cm^2 --------- 2.9 EMERSON/bsa, VTI 1.42 cm^2/m^2 --------- 1.48 LVOT/AV, Vpeak ratio 0.69 --------- 0.7 EMERSON, Vmax 2.6 cm^2 --------- 2.9 EMERSON/bsa, Vmax 1.37 cm^2/m^2 --------- 1.5 Mitral valve Value Ref 12/13/2023 Peak E 0.82 m/sec --------- 0.59 Peak A 0.26 m/sec --------- 0.19 PHT 66 ms --------- Mean grad, D 1 mm Hg --------- Peak grad, D 5 mm Hg --------- Peak E/A ratio 3.2 --------- 3.1 MVA, PHT 3.3 cm^2 --------- MVA/bsa, PHT 1.74 cm^2/m^2 --------- Max MR v 4.44 m/sec --------- Peak LV-LA grad S 79 mm Hg --------- Pulmonic valve Value Ref 12/13/2023 Peak v, S 0.66 m/sec --------- 0.66 Peak grad, S 2 mm Hg --------- 2 Tricuspid valve Value Ref 12/13/2023 Peak E 0.47 m/sec --------- 0.45 TR peak v (H) 3.1 m/sec <=2.8 3.6 Peak RV-RA grad, S 40 mm Hg --------- 51 Aortic root Value Ref 12/13/2023 Root diam, 3.0 cm --------- 3.2 Ascending aorta Value Ref 12/13/2023 AAo AP diam, S 3.1 cm --------- 3.2 AAo AP diam/bsa, S 1.6 cm/m^2 --------- 1.7 Pulmonary artery Value Ref 12/13/2023 Pressure, S 45 mm Hg --------- Systemic veins Value Ref 12/13/2023 Estimated RA pressure 5 mm Hg --------- 10 Legend: (L) and (H) radha values outside specified reference range. (N) smith values inside specified reference range. Procedure data: MCHOD Comparison was made to the study of 12/13/2023. Procedure information: A transthoracic echocardiogram was performed. Image quality was adequate. Scanning was performed from the parasternal, apical, and subcostal acoustic windows. Transthoracic echocardiogram. Complete 2D, complete spectral Doppler, and color Doppler. Birthdate: Patient birthdate: 1955. Age: Patient is 69year(s) old. Sex: gender: male. Height: 180.3cm. 71in. Weight: 71.9kg. 158.4lb. Body mass index: 22.1kg/m^2. Body surface area: 1.91m^2. Blood pressure: 125/65 Study date: Study date: 04/16/2025. Study time: 09:05 AM. Prepared and Electronically Authenticated Jerzy Roberson [id number]:01 Procedure Note Jerzy Roberson MD - 07/22/2025 [facility] Transthoracic Echocardiogram Patient: Shady Herman Study ID:[id number] Gender: M :1955 Age: 69 Race: SUNG Height 180.3cm Study Date:04/16/2025 Weight: 71.9kg Access. #:[id number] BP: 125 /65 *Referring Physician:Cassandra Arredondo Brooke *Ordering Physician:* Cassandra Krueger *Wool Shearing Supervisor:* Jared Perez RDCS, T hosiery mender: Nurse: Indications: NICM. History: PMH: CAD. HLD. SSS. Defibulator. PAF. Risk factors: The patient michael former tobacco user. Hypertension. STUDY CONCLUSIONS: SUMMARY: - Left ventricle: The cavity size was normal. Wall thickness was increasedin a pattern of mild LVH. Global systolic function is moderately reduced.For Epic reporting: the left ventricular ejection fraction is 42% . Thereis moderate diffuse hypokinesis. Left ventricular diastolic functionparameters are normal. - Aortic valve: Trivial regurgitation. - Mitral valve: Mild to moderate regurgitation. - Left atrium: The atrium is moderately dilated. - Right ventricle: The cavity size is normal. - Tricuspid valve: Moderate regurgitation. - Pulmonary arteries: Systolic pressure was mildly to moderatelyincreased. The peak systolic pressure is 45mm Hg. - GLS = -10.4. Impressions: Compared to 12/13/23, the LV Ejection fraction is slightlylower. Comparison: Prior Study Date: 12/13/2023. Cardiac Anatomy: LEFT VENTRICLE: The cavity size was normal. Wall thickness was increasedin a pattern of mild LVH. Global systolic function is moderately reduced. ForEpic reporting: the left ventricular ejection fraction is 42% . There ismoderate diffuse hypokinesis. Global longitudinal strain was -10.4% (GLS isabnormal if greater than -16, i.e. -15). Left ventricular diastolic functionparameters are normal. AORTIC VALVE: Structurally normal valve. Trileaflet. There was nostenosis. Trivial regurgitation. The mean systolic gradient is 1mm Hg. The peak systolic gradient is 2mm Hg. The LVOT to aortic valve VTI ratio is 0.71.The valve area is 2.7cm^2. The ratio of LVOT to aortic valve peak velocityis 0.69. AORTA: Aortic root: The root is normal-sized. Ascending aorta: The vessel is normal-sized. MITRAL VALVE: Structurally normal valve. Mild to moderateregurgitation. The mean diastolic gradient is 1mm Hg. The peak diastolic gradient is 5mmHg. LEFT ATRIUM: The atrium is moderately dilated. RIGHT VENTRICLE: The cavity size is normal. Pacer wire or catheter notedin right ventricle. Systolic function is mildly reduced. PULMONIC VALVE: Structurally normal valve. No significantregurgitation. TRICUSPID VALVE: Structurally normal valve. Moderate regurgitation. PULMONARY ARTERY: Systolic pressure was mildly to moderately increased. RIGHT ATRIUM: The atrium was normal in size. SYSTEMIC VEINS: Inferior vena cava: The IVC is normal-sized. PERICARDIUM: There is no pericardial effusion. Measurements Left ventricle Value Ref 12/13/2023 GLS, 2D -10.4 % --------- IVS, ED, LAX (H) 1.2 cm 0.6 - 1.0 LANA, LAX chord (N) 5.1 cm 4.2 - 5.8 5.6 LANA/bsa, LAX chord (N) 2.7 cm/m^2 2.2 - 3.0 2.9 IVS, ED (H) 1.2 cm 0.6 - 1.0 1.0 PW, ED (H) 1.4 cm 0.6 - 1.0 0.9 EDV, 2-p (N) 80 ml 62 - 150 128 ESV, 2-p (N) 46 ml 21 - 61 66 EF, 2-p (L) 42 % 52 - 72 49 SV, 2-p 34 ml --------- 62 SV/bsa, 2-p 17.8 ml/m^2 --------- 32.2 E', med angelina, TDI (N) 12.5 cm/sec >=7.0 6.4 E/e', med angelina, TDI 7 --------- 9 LVOT Value Ref 12/13/2023 Diam, S 2.2 cm --------- 2.3 Area 3.8 cm^2 --------- 4.2 Peak pradeep, S 0.54 m/sec --------- 0.56 VTI, S 11.5 cm --------- 10.1 Right ventricle Value Ref 12/13/2023 LANA minor ax, A4C base (N) 3.9 cm 2.5 - 4.1 5.4 LANA minor ax, A4C mid (N) 2.6 cm 1.9 - 3.5 4.2 LANA major ax, A4C (L) 5.2 cm 5.9 - 8.3 8.5 TAPSE, MM (L) 1.6 cm >=1.7 0.9 Pressure, S 45 mm Hg --------- 61 S' lateral (L) 9.4 cm/sec >=9.5 6.9 Left atrium Value Ref 12/13/2023 AP dim, ES (N) 4.0 cm 3.0 - 4.0 4.9 AP dim index, ES (N) 2.1 cm/m^2 1.5 - 2.3 2.5 SI dim, A4C 6.6 cm --------- 7.4 Area ES, A4C (H) 31 cm^2 <=20 30 Area/bsa ES, A4C 16.02 cm^2/m^2 --------- 15.49 SI dim, A2C 6.0 cm --------- 7.2 SI dim, shorter 6.0 cm --------- 7.2 Vol, ES, 1-p A2C (H) 100 ml 18 - 58 111 Vol/bsa, ES, 1-p A2C (H) 52 ml/m^2 11 - 43 58 Vol, ES, 2-p 110 ml --------- 107 Vol/bsa, ES, 2-p (H) 58 ml/m^2 16 - 34 55 LA/Ao root ratio 1.33 --------- 1.53 Aortic valve Value Ref 12/13/2023 Peak v, S 0.8 m/sec --------- 0.8 Mean v, S 0.48 m/sec --------- 0.49 VTI, S 16.1 cm --------- 14.7 Accel time 120 ms --------- Mean grad, S 1 mm Hg --------- 1 Peak grad, S 2 mm Hg --------- 3 LVOT/AV, VTI ratio 0.71 --------- 0.69 EMERSON, VTI 2.7 cm^2 --------- 2.9 EMERSON/bsa, VTI 1.42 cm^2/m^2 --------- 1.48 LVOT/AV, Vpeak ratio 0.69 --------- 0.7 EMERSON, Vmax 2.6 cm^2 --------- 2.9 EMERSON/bsa, Vmax 1.37 cm^2/m^2 --------- 1.5 Mitral valve Value Ref 12/13/2023 Peak E 0.82 m/sec --------- 0.59 Peak A 0.26 m/sec --------- 0.19 PHT 66 ms --------- Mean grad, D 1 mm Hg --------- Peak grad, D 5 mm Hg --------- Peak E/A ratio 3.2 --------- 3.1 MVA, PHT 3.3 cm^2 --------- MVA/bsa, PHT 1.74 cm^2/m^2 --------- Max MR v 4.44 m/sec --------- Peak LV-LA grad S 79 mm Hg --------- Pulmonic valve Value Ref 12/13/2023 Peak v, S 0.66 m/sec --------- 0.66 Peak grad, S 2 mm Hg --------- 2 Tricuspid valve Value Ref 12/13/2023 Peak E 0.47 m/sec --------- 0.45 TR peak v (H) 3.1 m/sec <=2.8 3.6 Peak RV-RA grad, S 40 mm Hg --------- 51 Aortic root Value Ref 12/13/2023 Root diam, 3.0 cm --------- 3.2 Ascending aorta Value Ref 12/13/2023 AAo AP diam, S 3.1 cm --------- 3.2 AAo AP diam/bsa, S 1.6 cm/m^2 --------- 1.7 Pulmonary artery Value Ref 12/13/2023 Pressure, S 45 mm Hg --------- Systemic veins Value Ref 12/13/2023 Estimated RA pressure 5 mm Hg --------- 10 Legend: (L) and (H) radha values outside specified reference range. (N) smith values inside specified reference range. Procedure data: MCHOD Comparison was made to the study of 12/13/2023. Procedureinformation: A transthoracic echocardiogram was performed. Image quality wasadequate. Scanning was performed from the parasternal, apical, and subcostalacoustic windows. Transthoracic echocardiogram. Complete 2D, complete spectral Doppler, and color Doppler. Birthdate: Patient birthdate: 1955. Age: Patient is 69year(s) old. Sex: gender: male. Height: 180.3cm. 71in. Weight: 71.9kg. 158.4lb. Body mass index: 22.1kg/m^2. Body surface area: 1.91m^2. Blood pressure: 125/65Study date: Study date: 04/16/2025. Study time: 09:05 AM. Prepared and Electronically Authenticated Jerzy Roberson [id number] us Cassandra Krueger SENIOR ORACLE APPLICATIONS DEVELOPER US ORDERABLES Final Result INTERFACE SYSTEM Refer to clinic/hospital department * MA INTERROGATION EVAL REMOTE </90 D 1/2/CEMETERY LABORER LD DFB, MA REM INTERROG PM/LDLS PM/IDS <90 D TECHREVIEW (02/19/2025 5:28 PM CDT) Narrative [facility] CARD[facility] - 02/19/2025 5:28 PM CDT Diane Amaro RN 02/19/2025 5:50 PM Routine, Remote Device Interrogation: The patient is followed by Dr. De Luna and by Dr. Dodson for his cardiology care. Appropriate [employer], rate responsive, biventricular ICD function. Presenting intermittently atrial paced, biventricular paced. AP 63%. RV paced 99%. LV paced 99%. The battery status is stable, indicating an estimated remaining longevity of 8 years. The lead impedances are stable. The intrinsic atrial sensing threshold is currently measuring at 0.4 mV. The LV pacing threshold is stable. Since 12/11/2024, there there were 4 nonsustained VT detections; available EGMs show nonsustained VT that were self abated, lasting for durations of 9 to15 beats. There were 2219 mode switch detections for a total atrial burden of 8 days, equating to 12%, and for a maximum episode duration of greater than 48 hours; available EGMs show episodes of atrial flutter, short runs of atrial tachycardia, short episodes of environmental noise on the atrial lead, PACs and PVCs. The arrhythmia log shows that the patient had a few days of a persistent atrial arrhythmia in early to mid December,. These episodes of noise are not new for the patient. The patient has a history of an ALEXA resection. The ventricular rate is controlled. We will continue to monitor for arrhythmias and episodes of noise with routine, future device interrogations and remotely through the [facility] follow-up system. The patient is scheduled for a routine, remote follow-up via [facility] in 3 months. Conclusion: The device is functioning as programmed. No ventricular arrhythmias were detected. Atrial arrhythmias and a few, short episodes of noise on the atrial lead were detected as described above. Eric Dodson MD CARDIAC SERVICES ORDERABLES E dited Result - Final [facility] [address] [employer] [address] [employer] [employer] [address] [place] [id number] from Last 3 Months Insurance [facility] [id number] RX [employer] Member Subscriber Plan / Payer (Ef fective 2015-Present) Name:Shady Herman Relation to Subscriber:Self Name:Shady Herman Payer ID:Not on file Group ID:[id number] Type:RX Medicare Part D Address: [address] [employer] Commercial Advance Directives For more information, please contact: [phone] * Full Code (Latest Code Status on File) Date Activated Date Inactivated Comments 09/01/2023 4:00 PM 09/01/2023 10:36 PM Care Teams [employer] Relationship Specialty Start Date End Date Akash Izquierdo MD [address] [place] [id number] PCP - General Internal Medicine 06/10/18
--- OUTSIDE RECORDS SUMMARY | 2025-05-05 16:13 | XMS_ITS | Clinical Summary ---
Author Organization [facility] Address Critical access hospital[address] [place] [address] Care Team Providers Care Caregivers Non Medical Name Role Phone Anna Paredes Primary Care Provider [phone] Richard Montague MD Unavailable [phone] Allergies Active Allergy Reactions Criticality Noted Date Comments Heparin Unknown Low 06/14/2018 Heparin Agents Molds & Smuts Unknown Low 10/17/2012 Sneezing Medications Multiple Vitamin (MULTI VITAMIN DAILY OR) Active aspirin 81 MG chewable tablet Chew 1 tablet (81 mg total) by mouth daily. Active metoprolol succinate ER 100 MG 24 hr tablet Take 1 tablet (100 mg total) by mouth 2 (two) times daily. 2 Active clopidogrel 75 MG tablet Take 1 tablet (75 mg total) by mouth daily. 2 Active Biotin 10 MG Cap Take 1 capsule by mouth daily. Active cetirizine (ZYRTEC) 10 MG tablet Take 1 tablet (10 mg total) by mouth daily as needed. Active losartan (COZAAR) 50 MG tablet Take 1 tablet (50 mg total) by mouth daily. Active spironolactone (ALDACTONE) 25 MG tablet Take 0.5 tablets (12.5 mg total) by mouth daily. Active pantoprazole EC (PROTONIX) 40 MG tabletIndications:G astroesophageal reflux disease without esophagitis TAKE 1 TABLET BY MOUTH ONCE DAILY IN THE MORNING 90 tablet 1 5 Active simvastatin (ZOCOR) 20 MG tabletIndications:M ixed hyperlipidemia TAKE 1 TABLET BY MOUTH NIGHTLY AT BEDTIME 90 tablet 3 5 Active Active Problems Problem Noted Date Diagnosed Date Heart failure with mid-range ejection fraction (HFmEF) ([facility]) 03/27/2025 Tubular adenoma of colon 03/04/2021 Colonic mass 01/09/2021 Overview (01/09/2021): Added automatically from request for surgery [id number] S/P femoral-popliteal bypass surgery 09/29/2020 Peripheral arterial disease 08/27/2020 Overview (09/16/2020): Last Assessment & Plan: 65 y.o M with RLE rest pain found to have R EIA and R SFA occlusion. -09/08: s/p OR for Right EIA dina thrombectomy and stenting, Right MANAGER PORTABLE endarterectomy, and fem-bk pop bypass with PTFE. Non-pulsatile after anastomoses completed, so did a Rethrombectomy of R EIA stent d/t absent pulses in the OR -Continue ASA, plavix and Statin for vascular patency -q4 neurovascular checks -PT/OT/OOB, encourage ambulation Screening for colon cancer 05/19/2020 Overview (05/19/2020): Added automatically from request for surgery [id number] Nonrheumatic mitral valve regurgitation 02/14/20 20 Dyslipidemia 02/14/2020 Hydrocele in adult 10/19/2019 Hematuria 12/27/2018 Cardiac pacemaker in situ 12/14/2018 SSS (sick sinus syndrome) ([facility]) 11/25 Atypical atrial flutter ([facility]) 2018 Symptomatic bradycardia 06/29/2018 Paroxysmal atrial fibrillation ([facility]) 06/29/2018 BMI 21.0-21.9, adult 02/15/2018 Pain, foot 02/15/2018 Elevated liver enzymes 02/25/2016 Hypotension 02/20/2016 A-fib ([facility]) 02/13/2016 Persistent atrial fibrillation ([facility]) 02/13/2016 Allergic rhinitis 01/16/2016 Atrial fibrillation ([facility]) 01/10/2015 Dysphagia 01/10/2015 Extremity atherosclerosis with intermittent daysi dication 10/17/2012 Hyperlipidemia 10/17/2012 Hypertension 10/17/2012 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 0 10/17/2012 Coronary artery disease invo lving rosebud coronary artery of rosebud heart without angina pectoris 05/05/2011 Overview (09/16/2020): Last Assessment & Plan: S/p CABG 02/2009, 09/2018 -Continue home ASA 81 and simvastatin 20 -q4 hr VS Resolved Problems Problem Noted Date Diagnosed Date Resolved Date Follow-up examination after eye surgery 06/16/2018 06/06/2020 Skin infection 05/25/2018 08/30/2018 Need for immunization against influenza 07/02/2013 06/06/2020 Encounters Date Type Department Care Team Description 04/23/2025 Results Follow-Up [facility] [address] [address] Anna Paredes APNP PROSTATE SPECIFIC ANTIGEN,SCREENING, URINALYSIS, COMPREHENSIVE METABOLIC PANEL, Additional followed-up results: 4 04/19/2025 Telephone [facility] [address] [address] Anna Paredes APNP Radiology Results (Chest CT) 04/18/2025 7:40 AM CDT Laboratory Only [address] [address] Anna Paredes APNP 04/18/2025 Travel 04/10/2025 Scan HEALTH INFO SRVCS Scanned, [facility] CT (SCAN) 03/28/2025 Scan HEALTH INFO SRVCS Scanned, [facility] 03/27/2025 8:40 AM CDT Office Visit [facility] [address] [address] Anna Paredes APNP Hypertension 03/27/2025 Travel from Last 3 Months Immunizations Immunization Administration Dates Next Due Arexvy Respiratory Syncytial Virus (RSV, adjuvanted) 0.5 mL, PF 01/09/2024 Fluad influenza vaccine, Xavier drivalent (aIIV4), Inactivated, adjuvanted, preservative free, 0.5 mL,IM use 07/08/2023 Fluzone 6 Months+ Quad (0.5 mL Prefilled Syringe) 07/02/2021,07/04/2020,07/18/2019 Fluzone High Dose (IIV, triv alent, 0.5mL) 07/10/2024 Influenza (Generic) 07/02/2013 Influenza Adult (Generic) 07/06/2018,,07/14/2016,2015,07/16/2015,07/10/2014 MODERNA COVID-19 (12+) MRNA, LNP-S, PF, 100 MCG/ 0.5 ML DOSE 08/08/2021,12/29/2020,12/01/2020 MODERNA COVID-19 (HOME HEALTH RN JARRET DUNCAN), MRNA, LNP-S, PF, 50 MCG/ 0.25 ML DOSE 12/06/2021 PFIZER COVID-19 (12+) MRNA, LNP-S, PF, JAIMEE-SUCROSE, 30 MCG/0.3 ML (COMIRNATY) 03/27/2025 Pneumococcal (Prevnar 20) 12/24/2022 Shingrix 12/24/2022,10/19/2022 Tdap (Generic) 11/24/2013,01/10/2012 Family History Medical History Relation Comments Heart Disease Brother Hypertension Brother Cancer Father Testicular cance r Hypertension Father Liver Disease Father Hypertension Mother several in my brizuela ve or had high blood pressure beside my mother Alzheimers Paternal Uncle Relation Status Comments Brother Father Mother Paternal Uncle Social History Tobacco Use Types Packs/Day Years Used Date Smoking Tobacco: Former Cigarettes 1.5 31 0 01/15/1978 - 01/15/2009 Smokeless Tobacco: Never Tobacco Cessation:Counseling Given: Yes Alcohol Use Standard Drinks/Week Comments Never 0 (1 standard drink = 0.6 oz pur e alcohol) AUDIT-C Answer Date Recorded Frequency of Alcohol Consumption Never 03/02/2019 Average Number of Drinks Not on file 019 Frequency of Binge Drinking Not on file 03/2019 PHQ-2 Answer Date Recorded Patient Health Questionnaire-2 Score 0 03/27/2025 Sex and Gender Information Value Date Recorded Sex Assigned at Male 03/27/2025 8:46 AM CDT Legal Sex Male 6:56 PM CDT Gender Identity Not on file Sexual Orientation Not on file Last Filed Vital Signs Vital Sign Reading Time Taken Comments Blood Pressure 118/68 03/27/2025 8:46 AM CDT Pulse 67 03/27/2025 8:46 AM CDT Temperature 36.6 C (97.8 F) 03/27/2025 8:46 AM CDT Respiratory Rate 16 03/27/2025 8:46 AM CDT Oxygen Saturation 96% 03/27/2025 8:46 AM CDT Inhaled Oxygen Concentration - - Weight 71.7 kg (158 lb) 03/27/2025 8:46 AM CDT Height 182.9 cm (6') 03/27/2025 8:46 AM CDT Body Mass Index 21.43 03/27/2025 8:46 AM CDT Plan of Treatment Health Maintenance Due Date Last Done Comments Annual Medicare Wellness Visit 2022 DTaP, Tdap and Td Vaccines (3 - Td or Tdap) 11/25/2023 11/24/2013, 01/10/2012 Colorectal Cancer Screening Colonoscopy (10 Years) 09/10/2032 09/10/2022, 02/19/2021, 06/16/2020 AAA SCREENING Completed 03/20/2021, 02/25, 08/01/2020, Additional history exists Pneumococcal Vaccine: 50+ Years Completed 12/24/2022 Zoster Vaccines Completed 12/24/2022, 10/19/2022 Hepatitis C Completed 03/24/2023 RSV Immunization or 60+ Years Completed 01/09/2024 COVID-19 Vaccine Completed 03/27/2025, , 07/08/2023, Additional history exists PHQ-2 (Physician [place]) Completed 03/27/2025 Meningococcal B Vaccine Aged Out No l onger eligible based on patient's age to complete this topic Meningococcal Vaccine Aged Out No parris pascual eligible based on patient's age to complete this topic RSV Immunizations Under 20 Months Aged Out No longer eligible based on patient's age to complete this topic Medical Devices Implanted Type Area Early Intervention Specialist Device Identifier Shelf Expiration Date Model / Serial / Lot Pacemaker Pacemaker Procedures Procedure Name Priority Date/Time Associated Diagnosis Comments COLLECTION VENOUS BLOOD VENIPUNCTURE Routine 04/18/2025 7:52 AM CDT Prostate cancer screening Primary hypertension Peripheral arterial disease Mixed hyperlipidemia Heart failure with mid-range ejection fraction (HFmEF) (CMS/HCC HHS/HCC) Cardiac pacemaker in situ Paroxysmal atrial fibrillation (CMS/HCC HHS/HCC) CBC W/DIFF AUTOMATED Routine 04/18/2025 7:52 AM CDT Heart failure with mid-range ejection fraction (HFmEF) (CMS/HCC HHS/HCC) Paroxysmal atrial fibrillation (CMS/HCC HHS/HCC) Cardiac pacemaker in situ Peripheral arterial disease LIPID PANEL Routine 04/18/2025 7:52 AM CDT Mixed hyperlipidemia TSH W/REFLEX Routine 04/18/2025 7:52 AM CDT Mixed hyperlipidemia URIC ACID BLOOD Routine 04/18/2025 7:52 AM CDT Heart failure with mid-range ejection fraction (HFmEF) (CMS/HCC HHS/HCC) Primary hypertension Cardiac pacemaker in situ Peripheral arterial disease Mixed hyperlipidemia COMPREHENSIVE METABOLIC PANEL Routine 04/18/2025 7:52 AM CDT Primary hypertension Peripheral arterial disease Mixed hyperlipidemia URINALYSIS, AUTO, COMPLETE Routine 04/18/2025 7:52 AM CDT Primary hypertension PROSTATE SPECIFIC ANTIGEN,SCREENING Routine 04/18/2025 7:52 AM CDT Prostate cancer screening CT GENERIC 04/10/2025 HEPATITIS C ANTIBODY W/RFX TO HCV RNA Routine 03/24/2023 9:48 AM CDT Need for hepatitis C screening test COLONOSCOPY GENERIC (SCAN ORDER) 09/10/2022 CT ABD+PEL W CON STAT 03/31/2019 9:27 AM CDT from Last 3 Months or Most Recently Relevant to Health Maintenance Results * TSH W/REFLEX (04/18/2025 7:52 AM CDT) TSH 1.500 0.358 - 3.740 uIU/ML 04/18/2025 3:37 PM CDT -[facility] 04/18/2025 7:52 AM CDT Anna MARVIN LABORATORY Final Resul t [facility] [place] [address] [facility] [place] [address], [place] [phone] * (ABNORMAL) URINALYSIS (04/18/2025 7:52 AM CDT) COLOR (U) YELLOW 04/18/2025 3:29 PM CDT [facility] TRANSPARENCY CLEAR CLEAR 04/18/2025 3:29 PM CDT [facility] SPECIFIC GRAVITY (U) 1.025 1.003 - 1.040 04/18/2025 3:29 PM CDT [facility] U PH 6.0 5.0 - 9.0 04/18/2025 3:29 PM CDT [facility] PROTEIN RANDOM (U) TRACE(A) NEGATIVE 04/18/2025 3:29 PM CDT [facility] GLUCOSE (U) NEGATIVE NEGATIVE 04/18/2025 3:29 PM CDT [facility] KETONES MG/DL (U) NEGATIVE NEGATIVE 04/18/2025 3:29 PM CDT [facility] BILIRUBIN (U) NEGATIVE NEGATIVE 04/18/2025 3:29 PM CDT [facility] BLOOD (U) NEGATIVE NEGATIVE 04/18/2025 3:29 PM CDT [facility] UROBILINOGEN 0.2 0.0 - 2.0 EU/DL 04/18/2025 3:29 PM CDT [facility] NITRITES NEGATIVE NEGATIVE 04/18/2025 3:29 PM CDT [facility] LEUKOCYTES (U) NEGATIVE NEGATIVE 04/18/2025 3:29 PM CDT [facility] RBC/HPF 0-3 0 - 3 /HPF 04/18/2025 3:29 PM CDT [facility] WBC/HPF 0-3 0 - 3 /HPF 04/18/2025 3:29 PM CDT [facility] EPI/HPF 0-3 /HPF 04/18/2025 3:29 PM CDT [facility] BACTERIA (U) NONE SEEN NONE SEEN 04/18/2025 3:29 PM CDT [facility] HYALINE CASTS 0-2 /LPF 04/18/2025 3:29 PM CDT [facility] MUCUS FEW 04/18/2025 3:29 PM CDT [facility] URINE SPECIMEN OBTAINED BY CLEAN CATCH PROCEDURE / Unknown 04/18/2025 7:52 AM CDT Anna MARVIN URINE ORDERABLES Final Resu lt Performing Organization Address City/[facility] [place] Co de Phone Number [address] [address], [place] [phone] * PROSTATE SPECIFIC ANTIGEN,SCREENING (04/18/2025 7:52 AM CDT) PSA 1.96 <4.00 NG/ML 04/18/2025 2:23 PM CDT [facility] Comment: ASSAY PERFORMED BY [employer]ME IMMUNOASSAY METHODOLOGY USING SIEMENS DIMENSION REAGENT. PATIENT RESULTS DETERMINED BY ASSAYS FROM DIFFERENT MANUFACTURERS AND/OR BY DIFFERENT METHODS MAY NOT BE COMPARABLE. 04/18/2025 7:52 AM CDT Anna MARVIN LABORATORY Final Resul t Performing Organization Address City/[facility] [place]/[facility] Co de Phone Number [facility] [address] [place] [address], [place] [phone] * (ABNORMAL) COMPREHENSIVE METABOLIC PANEL (04/18/2025 7:52 AM CDT) [facility] SODIUM S/P/B 146(H) 136 - 145 MMOL/L 04/18/2025 3:37 PM CDT MG-[facility] POTASSIUM S/P/B 4.6 3.5 - 5.1 MMOL/L 04/18/2025 3:37 PM CDT -[facility] CHLORIDE S/P/B 109(H) 98 - 107 MMOL/L 04/18/2025 3:37 PM CDT MG-[facility] CO2 27.9 21 - 32 MMOL/L 04/18/2025 3:37 PM T [facility] GLUCOSE 91 70 - 99 MG/DL 04/18/2025 3:37 PM CDT [facility] BUN 18 7 - 18 MG/DL 04/18/2025 3:37 PM T [facility] CREATININE S/P/B 1.21 0.70 - 1.30 MG/DL 04/18/2025 3:37 PM CDT [facility] CALCIUM S/P/B 9.4 8.4 - 10.5 MG/DL 04/18/2025 3:37 PM CDT MG-[facility] BILIRUBIN TOTAL S/P/B 1.6(H) 0.2 - 1.0 MG/DL 04/18/2025 3:37 PM T [facility] ALKALINE PHOSPHATASE S/P/B 55 45 - 115 U/L 04/18/2025 3:37 PM CDT MG-[facility] AST 19 15 - 37 U/L 04/18/2025 3:37 PM CDT [facility] ALT 26 16 - 63 U/L 04/18/2025 3:37 PM CDT MG-[facility] [place] TOTAL PROTEIN S/P/B 7.1 6.4 - 8.2 G/DL 04/18/2025 3:37 PM CDT [facility] ALBUMIN S/P/B 4.2 3.4 - 5.0 G/DL 04/18/2025 3:37 PM CDT [facility] ANION GAP 9.1 5 - 15 MMOL/L 04/18/2025 3:37 PM CDT [facility] Comment:REFERENCE RANGE NOT ESTABLISHED OSMOLALITY (CALC) 303 MOSM/KG 025 3:37 PM CDT [facility] Comment:REFERENCE RANGE NOT ESTABLISHED GFR ESTIMATE 66(L) >90 ML/MIN/1. 73 M2 04/18/2025 3:37 PM CDT [facility] GFR NOTES GFR REFERENCE S: 04/18/2025 3:37 PM T [facility] Comment: THE ESTIMATED GFR IS CALCULATED USING THE 2020 CKD-EPI EQUATION. THE FOLLOWING CATEGORIES FOR GRADING RENAL FUNCTION ARE RECOMMENDED BY THE INTERNATIONAL SOCIETY OF NEPHROLOGY (KDIGO 2012 CLINICAL PRACTICE GUIDELINE). G1,NORMAL OR HIGH: >89 ml/min/1.73 m2 G2,MILDLY DECREASED: 60-89 ml/min/1.73 m2 G3A,MILDLY TO MODERATELY DECREASED: 45-59 ml/min/1.73 m2 G3B,MODERATELY TO SEVERELY DECREASED: 30-44 ml/min/1.73 m2 G4,SEVERELY DECREASED: 15-29 ml/min/1.73 m2 G5,KIDNEY FAILURE: <15 ml/min/1.73 m2 04/18/2025 7:52 AM CDT Anna MARVIN LABORATORY Final Resul t [facility] [address] [place] [address], * (ABNORMAL) LIPID PANEL (04/18/2025 7:52 AM CDT) CHOLESTEROL 121 <200 MG/DL 04/18/2025 3:37 PM CDT [facility] TRIGLYCERIDES 117 <150 MG/DL 04/18/2025 3:37 PM CDT [facility] HDL 40(L) >40 MG/DL 04/18/2025 3:37 PM CDT [facility] LDL-C 58 <100 MG/DL 04/18/2025 3:37 PM CDT [facility] VLDL CALCULATION 23 5 - 28 MG/DL 04/18/2025 3:37 PM CDT [facility] CHOL/HDL RATIO 3.0 0.0 - 4.0 04/18/2025 3:37 PM CDT [facility] LDL/HDL 1.5 0.41 - 2.13 04/18/2025 3:37 PM CDT [facility] NON HDL CHOLESTEROL 81 <140 MG/DL 04/18/2025 3:37 PM CDT [facility] 04/18/2025 7:52 AM CDT Anna MARVIN LABORATORY Final Resul t [facility] [address] [place] [address], * (ABNORMAL) CBC W/DIFF AUTOMATED (04/18/2025 7:52 AM CDT) WBC 8.14 4.00 - 10.80 x10'3/uL 04/18/2025 2:48 PM CDT [facility] RBC 4.16(L) 4.50 - 6.10 x10'6/uL 04/18/2025 2:48 PM CDT [facility] HGB 13.3 13.0 - 18.0 G/DL 04/18/2025 2:48 PM CDT [facility] HCT 40.4 37.0 - 52.0 % 04/18/2025 2:48 PM CDT [facility] MCV 97.1 78.0 - 100.0 FL 04/18/2025 2:48 PM CDT MG-[facility] MCH 32.0(H) 27.0 - 31.0 PG 04/18/2025 2:48 PM CDT MG-[facility] MCHC 32.9(L) 33.0 - 36.0 G/DL 04/18/2025 2:48 PM CDT [facility] RDW 13.3 11.5 - 14.5 % 04/18/2025 2:48 PM CDT [facility] PLT 205 150 - 350 x10'3/uL 04/18/2025 2:48 PM CDT [facility] MPV 10.6(H) 7.4 - 10.4 FL 04/18/2025 2:48 PM CDT [facility] DIFFERENTIAL TYPE AUTOMATED DIFFERENTIAL 04/18/2025 2:48 PM CDT [facility] NEUTROPHILS % 62.8 % 04/18/2025 2:48 PM CDT [facility] LYMPHOCYTES % 21.3 % 04/18/2025 2:48 PM CDT [facility] MONOCYTES % 8.0 % 04/18/2025 2:48 PM CDT [facility] EOSINOPHILS % 7.6 % 04/18/2025 2:48 PM CDT [facility] BASOPHILS % 0.2 % 04/18/2025 2:48 PM CDT [facility] IMMATURE GRANS % 0.1 % 04/18/2025 2:48 PM CDT [facility] ABS. NEUTROPHILS 5.11 1.60 - 8.30 x10'3/uL 04/18/2025 2:48 PM CDT [facility] ABS. LYMPHOCYTES 1.73 0.80 - 4.70 x10'3/uL 04/18/2025 2:48 PM CDT [facility] ABS. MONOCYTES 0.65 0.00 - 1.50 x10'3/uL 04/18/2025 2:48 PM CDT [facility] ABS. EOSINOPHILS 0.62(H) 0.00 - 0.40 x10'3/uL 04/18/2025 2:48 PM CDT [facility] ABS. BASOPHILS 0.02 0.00 - 0.20 x10'3/uL 04/18/2025 2:48 PM CDT [facility] ABS. IMMATURE GRANULOCYTES 0.01 0.00 - 0.03 x10'3/uL 04/18/2025 2:48 PM CDT [facility] 04/18/2025 7:52 AM CDT Anna MARVIN LABORAT[facility] Final Resul t Performing Organization Address City/[facility] [place]/[facility] de Phone Number [address] [address], * URIC ACID BLOOD (04/18/2025 7:52 AM CDT) URIC ACID 4.9 3.5 - 7.2 MG/DL 04/18/2025 5:38 PM CDT [facility] 04/18/2025 7:52 AM CDT Anna [facility]VIN [facility]ORAT[facility] Final Resul t Performing Organization Address City/[facility] [place]/[facility] Co de Phone Number [address] [address], * CT GENERIC (04/10/2025) Anatomical Region Laterality Modality Other 04/10/2025 [facility] Scanned SCANNING Final Resu lt * HEPATITIS C ANTIBODY W/RFX TO HCV RNA ([facility] ONLY) (03/24/2023 9:48 AM CDT) HEPATITIS C AB NON-REACT VINCENT NON-REACT VINCENT [facility] Comment: HCV antibody was non-reactive. There is no laboratory evidence of HCV infection. In most cases, no further action is required. However, if recent HCV exposure is suspected, a test for HCV RNA (test code 43849) is suggested. For additional information please refer to http://education.CoAxia/faq/BKP86w1 (This link is being provided for informational/ educational purposes only.) 03/24/2023 9:48 AM CDT 03/25/2023 7:00 AM CDT Narrative Resulting Agency Comment Performing Organization Information: Site ID: [id number] Name: OANDA Shreyas Address: [facility][note 3] [place] [address] Director: Jodie Ward MD Anna [facility]VIN [facility]OR[facility] Final Resul t [facility]PSX Kushal TABARES [facility] [id number] [place] [address] [place] [address], [place] * COLONOSCOPY GENERIC (09/10/2022) 09/10/2022 [facility] Scanned SCANNING Final Resu lt * CT ABD+PEL W IV CON ONLY (03/31/2019 9:27 AM CDT) Anatomical Region Laterality Modality Abdomen Computed Tomogra phy 03/31/2019 9:32 AM CDT Impressions 03/31/2019 9:52 AM CDT IMPRESSION: 1. Anterior chest and abdominal wall collaterals, with an IVC filter. Venous return obstruction seems likely, and subsequent varicoceles could explain scrotal pain. The scrotum and testicles are not included on this study. Consider ultrasound of the scrotum and testicles for further evaluation. 2. Wall thickening of a few loops of small bowel in the pelvis without navarro dilatation. This could be inflammatory or infectious. 3. Cholelithiasis without cholecystitis. 4. Moderate colonic stool burden. 5. Diverticulosis without diverticulitis. 6. Bibasilar solid pulmonary nodules measuring up to 9 mm; recommend noncontrast CT evaluation of the chest in 3-6 months to assess stability. Narrative 03/31/2019 9:52 AM CDT Examination: CT ABD+PEL W CON Exam time: 03/31/2019 9:21 AM Clinical history: Burning sensation in scrotal area for 2 weeks. Comparison: None Technique: Axial images from the diaphragmatic domes through the lesser trochanters were obtained after uneventful administration of 100 mL Isovue-370 contrast via the right antecubital fossa. Coronal and sagittal generated and reviewed. A dose lowering technique was used for this procedure, which may include, but is not limited to, dose reduction technique, automated exposure control, the use of iterative reconstruction, and ALARA (As Low As Reasonably Achievable)/Image Gently techniques. Findings: Lower thorax: Bibasilar atelectasis/scarring, with a 9 mm pulmonary nodule in the right base and a 10 mm pulmonary nodule in the left base. These should be followed. Partially visualized pacemaker wires and cardiac stents. No hiatal hernia. Collaterals are seen in the anterior subcutaneous chest wall. ABDOMEN: Liver is normal in size and contour. Scattered focal hypodensities in the liver may represent cysts. The gallbladder exhibits cholelithiasis without cholecystitis. Pancreas is normal. Spleen is normal in size. No adrenal masses. Kidneys enhance symmetrically. Extensive right renal cortical scarring. No hydronephrosis or ureterectasis. Abdominal aorta is normal in course and caliber with dense atherosclerotic calcifications. The celiac trunk, SMA, and JAYE are patent. No retroperitoneal lymphadenopathy by size criteria. There is an IVC filter. No free air or fluid in the abdomen or pelvis. Pelvis: Diffuse mild small bowel wall thickening in the pelvis with associated hyperemia. No bowel dilatation by size criteria. No mesenteric or pelvic lymphadenopathy. Urinary bladder is physiologically distended and smooth walled. The prostate is enlarged. Moderate colonic stool burden. Diverticulosis without diverticulitis. The appendix is negative. The testicles are not included on this study. Bone windows reveal degenerative changes at the bilateral hips and multilevel spondylosis. No destructive osseous lesions. Procedure Note Quinn Pierre MD - 03/31/2019 Examination: CT ABD+PEL W CON Exam time: 03/31/2019 9:21 AM Clinical history: Burning sensation in scrotal area for 2 weeks. Comparison: None Technique: Axial images from the diaphragmatic domes through the lesser trochanters were obtained after uneventful administration of 100 mL Isovue-370 contrast via the right antecubital fossa. Coronal andsagittal generated and reviewed. A dose lowering technique was used for this procedure, which may include, but is not limited to, dose reduction technique, automated exposure control, the use of iterativereconstruction, and ALARA (As Low As Reasonably Achievable)/Image Gently techniques. Findings: Lower thorax: Bibasilar atelectasis/scarring, with a 9 mm pulmonarynodule in the right base and a 10 mm pulmonary nodule in the left base. These should be followed. Partially visualized pacemaker wires and cardiac stents. No hiatal hernia. Collaterals are seen in the anteriorsubcutaneous chest wall. ABDOMEN: Liver is normal in size and contour. Scattered focalhypodensities in the liver may represent cysts. The gallbladder exhibitscholelithiasis without cholecystitis. Pancreas is normal. Spleen is normal in size. No adrenal masses. Kidneys enhance symmetrically. Extensive right renal cortical scarring. No hydronephrosis or ureterectasis. Abdominal aortais normal in course and caliber with dense atherosclerotic calcifications.The celiac trunk, SMA, and JAYE are patent. No retroperitoneallymphadenopathy by size criteria. There is an IVC filter. No free air or fluid in the abdomen or pelvis. Pelvis: Diffuse mild small bowel wall thickening in the pelvis with associated hyperemia. No bowel dilatation by size criteria. Nomesenteric or pelvic lymphadenopathy. Urinary bladder is physiologically distendedand smooth walled. The prostate is enlarged. Moderate colonic stool burden. Diverticulosis without diverticulitis. The appendix is negative. The testicles are not included on this study. Bone windows reveal degenerative changes at the bilateral hips and multilevel spondylosis. No destructive osseous lesions. IMPRESSION: 1. Anterior chest and abdominal wall collaterals, with an IVC filter. Venous return obstruction seems likely, and subsequent varicoceles could explain scrotal pain. The scrotum and testicles are not included on this study. Consider ultrasound of the scrotum and testicles for further evaluation. 2. Wall thickening of a few loops of small bowel in the pelvis without navarro dilatation. This could be inflammatory or infectious. 3. Cholelithiasis without cholecystitis. 4. Moderate colonic stool burden. 5. Diverticulosis without diverticulitis. 6. Bibasilar solid pulmonary nodules measuring up to 9 mm; recommend noncontrast CT evaluation of the chest in 3-6 months to assessstability. us Joe Gomez MD CT Final Result from Last 3 Months or Most Recently Relevant to [place] [address] Care Teams Caregivers Non Medical Relationship Specialty Start Date End Date Anna Paredes APNP [facility] [place] [address] PCP - General FAMILY PRACTICE 08/29/18 Richard Montague MD [address] [place] [address] VASCULAR SURGERY 02/02/21
--- OUTSIDE RECORDS SUMMARY | 2025-05-05 16:13 | XMS_ITS | Encounter Summary ---
Author Organization [facility] System Address Formerly [facility] [place] [address] Care Team Providers Care Seconds Handler Name Role Phone Anna Paredes Primary Care Provider [phone] Sissy Rice RN Unavailable [phone] Richard Montague MD Unavailable [phone] Encounter Details Date Type Department Care Team (Late st Contact Info) Description 12/29/2020 [employer] Message Enc [facility] Medical Group Family Medicine [facility] [address], [address] [place] [address] [place], [facility] Provider RE:Schedule Appointment - Annual Physical Social History Tobacco Use Types Packs/Day Years [...] have Coronavirus / COVID-19? No / Unsure 01/01/2021 1:21 PM CDT documented as of this encounter Plan of Treatment Not on file documented as of this encounter Visit Diagnoses Not on filedocumented in this encounter Additional Health Concerns Infection Onset Date Last Indicated Resolved Time COVID-19 Rule Out 02/16/2021 02/16/2021 02/17/2021 12:46 PM CDT documented as of this encounter Care Teams Seconds Handler Relationship Specialty Start Date End Date Anna Paredes APNP [address] [place] [address] PCP - General FAMILY PRACTICE 08/29/18 Sissy Rice RN [address] [place] [address] [employer] (Ambulatory) REGISTERED NURSE 10/02/19 Richard Montague MD [address] [place] [address] VASCULAR SURGERY 02/02/21 documented as of this encounter
--- OUTSIDE RECORDS SUMMARY | 2025-05-05 16:13 | XMS_ITS | Encounter Summary ---
Author Organization [facility] Address [facility] [place] [address] Care Team Providers Care Department Clinician Name Role Phone Anna Paredes Primary Care Provider [phone] Richard Montague MD Unavailable [phone] Encounter Details Date Type Department Care Team (Late st Contact Info) Description 02/22/2023 imoji Message Enc [facility] Medical Group Family & Internal Medicine [address] [address] [facility] Provider appointment Social History Tobacco Use Types Packs/Day Years [...] on file Sexual Orientation Not on file documented as of this encounter Plan of Treatment Not on file documented as of this encounter Visit Diagnoses Not on filedocumented in this encounter Care Teams Department Clinician Relationship Specialty Start Date End Date Anna Paredes APNP [address] [place] [id number] PCP - General FAMILY PRACTICE 12/4/18 Ricahrd Montague MD [address] [place] [address] VASCULAR SURGERY 02/02/21 documented as of this encounter
--- OUTSIDE RECORDS SUMMARY | 2025-05-05 16:13 | XMS_ITS | Continuity of Care Document ---
Author Organization [facility] Address [address] [place] [address] [address] [place] [address] Phone Care Team Providers Care Flight Radio Officer Name Role Phone Zay Auguste MD, MD Unavailable Unavailable Procedures Procedure Date CATARACT SURG W/IOL, 1 STAGE OFFICE/OUTPATIENT VISIT, [facility] OPHTHALMIC BIOMETRY LT DILATED EXAM RIGHT EYE DILATED EXAM LEFT EYE Advance Directives Directive Yes / No Effective Date File Name No Information Encounters Encounter Description Practice Location Reason(s) For Visit Diagnoses Date Provider Providers Copied on Encounter [facility], [address] [place] [address], [id number], tel:[phone] No Information Marvin Collazo. [address], [address], [place], [place], [id number] , [place]. [phone] Referring Provider: Zay Thacker, [address], [place], [address] . tel:[phone] OFFICE/OUTPA TIENT VISIT, [facility], [address] [place] [address] [address], [place], [place], [id number], tel:[phone] [facility] Rosa No Information 5 Molina Collazo. [address], [address], [place], [place], [id number] , [place]. [phone] Referring Provider: Zay Thacker, [address], [place], [address] . tel:[phone] Family History Family Member Type Diagnosis Age At Onset No Information Payers Payer name Insurance type Covered democrat ID Authoriza tion(s) No Information Social History [...]
--- OUTSIDE RECORDS SUMMARY | 2025-05-05 16:13 | XMS_ITS | Encounter Summary ---
Author Organization [facility] Address [facility] [place] [address] Care Team Providers Care Canvas Worker Name Role Phone Anna Paredes Primary Care Provider [phone] Richard Montague MD Unavailable [phone] Encounter Details Date Type Department Care Team (Late st Contact Info) Description 07/28/2021 MyChart Message Enc [facility] Medical Group Family & Internal Medicine [facility] [address] [place] [address] Anna Paredes APNP [address] [place], [place] [phone] Referral Request Social History Tobacco Use Types Packs/Day Years [...] have Coronavirus / COVID-19? No / Unsure 07/02/2021 8:52 AM CDT documented as of this encounter Plan of Treatment Not on file documented as of this encounter Visit Diagnoses Not on filedocumented in this encounter Care Teams Canvas Worker Relationship Specialty Start Date End Date Anna Paredes APNP [address] [place] [address] PCP - General FAMILY PRACTICE 08/29/18 Richard Montague MD [address] [place] [address] VASCULAR SURGERY 02/02/21 documented as of this encounter
--- OUTSIDE RECORDS SUMMARY | 2025-05-05 16:13 | XMS_ITS | Encounter Summary ---
Author Organization [facility] Address [facility] [place] [address] Care Team Providers Care Erosion Control Coordinator Name Role Phone Anna Paredes Primary Care Provider [phone] Richard Montague MD Unavailable [phone] Encounter Details Date Type Department Care Team (Late st Contact Info) Description 08/11/2021 [employer] Message Enc [facility] Medical Group Family & Internal Medicine [facility] [address] [place] [address] Anna Paredes APNP [address] [place] [address] RE: Referral Request Social History Tobacco Use Types [...] on filedocumented in this encounter Care Teams Erosion Control Coordinator Relationship Specialty Start Date End Date Anna Paredes APNP [facility]1 [place] [address] PCP - General FAMILY PRACTICE 08/29/18 Richard Montague MD [facility] [place] [address] VASCULAR SURGERY 02/02/21 documented as of this encounter
--- NOTE | 2025-05-05 16:24 | ECG_ITS ---
Test Date: 2025-05-05 16:26:46 Measurements Intervals [place] Rate: 120 P: 0 AL: 0 QRS: 115 QRSD: 150 T: -25 QT: 387 QTc: 547 Interpretive Statements ELECTRONIC VENTRICULAR PACEMAKER UNDERLYING ATRIAL TACHYCARDIA BASELINE ARTIFACT- I, II, AVR NO FURTHER INTERPRETATION IS POSSIBLE ABNORMAL ECG No previous ECG available for comparison Electronically Signed On 05-05-2025 17:40:28 CDT by Aidan De Anda D.O.
[2025-05-05] MEDS: ASPIRIN 81 MG CHEWABLE TABLET 324 MG PO (16:50)
[2025-05-05 16:52] LABS: Hematocrit 41.4 % (42.0-52.0); Hemoglobin 13.8 g/dL (14.0-18.0); Immature Granulocyte Percent A 0.2 % (0-0.5); Lymphocytes Absolute Auto 2.05 K/mm3 (0.9-3.2); Mean Corpuscular HGB Conc 33.3 g/dl (32-36); Mean Corpuscular Hemoglobin 32.1 pg (26-34); Mean Corpuscular Volume 96.3 fl (80-100); Nucleated Red Blood Cells Absolute Auto 0.000 K/mm3 (0.0-0.012); Nucleated Red Blood Cells Perc 0.0 % (0.0-0.2); Platelet Count Result 193 k/mm3 (150-375); Red Blood Count 4.30 M/mm3 (4.6-6.20); White Blood Count 8.2 K/mm3 (4.5-10.0)
[2025-05-05 17:00] LABS: INR 1.1; Partial Thromboplastin Time 25.8 Seconds (22.3-36.8); Prothrombin Time 14.0 Seconds (11.1-14.7)
[2025-05-05 17:03] LABS: Alanine Aminotransferase 32 U/L (6-50); Albumin Level 4.6 g/dL (3.5-5.1); Alkaline Phosphatase 55 U/L (38-126); Anion Gap 7 mmol/L (4-12); Aspartate Amino Transferase 47 U/L (17-59); Bilirubin,Total 2.1 mg/dL (0.2-1.3); Blood Urea Nitrogen 20 mg/dL (9-20); Calcium 9.8 mg/dL (8.4-10.2); Carbon Dioxide 29 mmol/L (22-30); Chloride 104 mmol/L (98-107); Estimated CRCL calculation 56 ml/min; Estimated Glomerular Filt Rate 59; Glucose 98 mg/dL (65-110); Lipase 208 U/L (23-300); Potassium 4.3 mmol/L (3.4-5.0); Sodium 140 mmol/L (137-145); Total Protein 8.3 g/dL (6.3-8.2)
[2025-05-05 17:15] LABS: Troponin I < 0.012 ng/mL (0.000-0.034)
--- OUTSIDE RECORDS SUMMARY | 2025-05-05 17:28 | XMS_ITS | Encounter Summary ---
Author Organization [facility] Address [facility]ly [facility] [place] [address] Care Team Providers Care Campaign Advisor Name Role Phone Anna Paredes Primary Care Provider [phone] Richard Montague MD Unavailable [phone] Encounter Details Date Type Department Care Team (Late st Contact Info) Description 07/28/2021 MyChart Message Enc [facility] Medical Group Family & Internal Medicine [facility] [address] [place] [address] Anna Paredes APNP [address] [place], [place] [phone] Referral Request Social History Tobacco Use Types [...] on filedocumented in this encounter Care Teams Campaign Advisor Relationship Specialty Start Date End Date Anna Paredes APNP [address] [place] [address] PCP - General FAMILY PRACTICE 08/29/18 Richard Montague MD [address] [place] [address] VASCULAR SURGERY 02/02/21 documented as of this encounter
--- OUTSIDE RECORDS SUMMARY | 2025-05-05 17:28 | XMS_ITS | Clinical Summary ---
Author Organization [facility] [address] [facility] Address [address] [place] [address] Care Team Providers Care Probation Manager Name Role Phone Akash Izquierdo MD Primary Care Provider [phone] Allergies Active Allergy Reactions Criticality Noted Date [...] migh t be different from the original. Public Relations Senior Associate - Dr. Bradford De Luna MD, [facility], [facility] Heart and Vascular - [address] [facility] [address] Calixto - [facility] - Vascular Surgery - Dr. Richard Montague [address] [place] [address] Problem Noted Date Diagnosed Date Decreased cardiac ejection fraction 02/28/2023 Overview (02/28/2023): Added automatically from request for surgery [id number] Coronary artery disease invo lving kaltag coronary artery of kaltag heart without angina pectoris 02/14/2020 Dyslipidemia 02/14/2020 Nonrheumatic mitral valve regurgitation 02/14/20 20 SSS (sick sinus syndrome) 12/14/2018 Cardiac pacemaker in situ 12/14/2018 Atypical atrial flutter 10/11/2018 Paroxysmal atrial fibrillation 06/29/2018 Symptomatic bradycardia 06/29/2018 Encounters Date Type Department Care Team Description 05/01/2025 External Device Data STL ABSTRACTION Provider, Abstract 04/17/2025 Results Follow-Up [facility] Heart and Vascular - [address] [facility] [address] [address] Cassandra Krueger FNP ECHO COMPLETE - CONTRAST AND STRAIN IF INDICATED 04/16/2025 8:50 AM CDT - 04/16/2025 11:59 PM CDT Hospital Encounter [facility] Heart and Vascular Testing [facility] [address] [address] Cassandra Krueger FNP Discharge Disposition: Home or Self Care 03/28/2025 10:00 AM CDT Office Visit [facility] Heart and Vascular - [address] [facility] 300 [address] [facility] [address] [place] [address] Heart failure with mid-range ejection fraction (HFmEF) (CMS/HCC) (Primary Dx); Paroxysmal atrial fibrillation (CMS/HCC); Coronary artery disease involving kaltag coronary artery of kaltag heart without angina pectoris; NICM (nonischemic cardiomyopathy) (CMS/HCC); ICD (implantable cardioverter-defibril lator) in place; Mixed hyperlipidemia 03/12/2025 External Device Data STL ABSTRACTION Provider, Abstract 02/19/2025 2:30 PM CDT Procedure visit [facility] and Vascular - [address] [facility] 202 [address] [facility] [address] [place] [address] Sick sinus syndrome (CMS/HCC) (Primary Dx); Atypical atrial flutter (CMS/HCC); Cardiac defibrillator in place; Chronic systolic congestive heart failure (CMS/HCC); Ischemic cardiomyopathy 02/19/2025 Results Follow-Up [facility] Heart and Vascular - [address] [place] [address] [facility] [address] [place] [address] Eric Dodson MD ICD ANALYSIS REMOTE, UP [...] 37.1 C (98.7 F) 09/01/2023 7:00 PM INSTITUTE DIRECTOR Respiratory Rate 15 09/01/2023 7:00 PM INSTITUTE DIRECTOR Oxygen Saturation 96% 12/11/2024 11:02 AM CDT Inhaled Oxygen Concentration - - Weight 71.8 kg (158 lb 6.4 oz) 03/28/2025 9:50 A M CDT Height 180.3 cm (5' 11) 03/28/2025 9:50 AM CDT Body Mass Index 22.09 03/28/2025 9:50 AM CDT Plan of Treatment Upcoming Encounters Date Type Department Care Team (Late st Contact Info) Description 05/21/2025 11:15 AM CDT Procedure visit [facility] and Vascular - [address] [facility] 202 [address] [facility] [address] [place] [phone] 06/25/2025 9:00 AM CDT Office Visit [facility] Heart and Vascular - [address] [facility] 202 [address] [facility] [address] [place] [address] Donita Barbour, SAWYER [address] [facility] [address] [place] [phone] 04/10/2026 9:30 AM CDT Office Visit [facility] Heart and Vascular - [address] [facility] 300 [address] [facility] 300 [place] [address] Cassandra Krueger FNP [address] [facility] [address] [place] [address] Health Maintenance Due Date Last [...] 03/17/2021, 10/14/2020 Medical Devices Implanted Type Area Leasing Machine Tender Device Identifier Shelf Expiration Date Model / Serial / Lot Defib Icd Resonate X4 Df4 Yard Attendant-D G447 - [id number] Implanted:Qt y: 1 on 09/01/[address] [facility] Defibrillator Left: Chest [employer] BEN 06/16/2025 G447 / [id number] / Ra Lead-10/23/19 19 Implanted: by Darwin Calixto MD (Quantity not on file) Lead Heart [employer] SCI- BOOTH MANAGER 10/10/2020 7741-52 / [id number] / [id number] Description:RA Lead Lead Comanche 4 Front Af Sc 64cm 0673 - [id number] Implanted:Qt y: 1 on 09/01/[address] [facility] Lead Left: Chest [employer]- SELMA INTERVENTIONS 03/17/2025 06 / [id number] / Lead Pace Acuity Sprl L 95cm X4 4 Plr 4675-95 - [id number] Implanted:Qt y: 1 on 09/01/[address] [facility] Lead Left: Chest [employer] BEN 07/26/2024 4675-95 / [id number] / [id number] Envelope Lrg Mr 2.9x3.3in Implant Mesh Pulse Gen Bag [id number] - [id number] Implanted:Qt y: 1 on 09/01/[address] [facility] Mesh Left: Chest [employer]- CARD RHYTHM MGMT 05/26/2024 [id number] / / [id number] Explanted Type Area Leasing Machine Tender Device Identifier Shelf Expiration Date Model / Serial / Lot Rv Lead- 9 Implanted: by Darwin Calixto MD (Quantity not on file) Explanted:Qty : 1 on 09/01/2023 by Junior Horowitz MD at [facility] Lead Heart [employer]- BOOTH MANAGER 05/21/2020 7742-59 / [id number] / [id number] Description:Implant date 09/27 Upgrade to BiV ICD RV lead Pacemaker-09/27 Implanted: by Darwin Calixto MD (Quantity not on file) Explanted:Qty : 1 on 09/01/2023 by Junior Horowitz MD at [facility] Pacemaker Left: Chest [employer]- BOOTH MANAGER 08/22/2020 [id number] / [id number] / [id number] Description:Implant date 09/[address] Pacemaker Procedures Procedure Name Priority Date/Time Associated Diagnosis Comments ECHO COMPLETE Routine 04/16/2025 9:50 AM CDT NICM (nonischemic cardiomyopathy) (CMS/HCC) NJ REM INTERROG PM/LDLS PM/IDS <90 D TECH REVIEW Routine 02/19/2025 5:28 PM CDT Sick sinus syndrome (CMS/HCC) Atypical atrial flutter (CMS/HCC) Cardiac defibrillator in place Chronic systolic congestive heart failure (CMS/HCC) Ischemic cardiomyopathy NJ INTERROGATION EVAL REMOTE </90 D //SANDER WOODEN PENCILS LD DFB Routine 02/19/2025 5:28 PM CDT Sick sinus syndrome (CMS/HCC) Atypical atrial flutter (CMS/HCC) Cardiac defibrillator in place Chronic systolic congestive heart failure (CMS/HCC) Ischemic cardiomyopathy from Last 3 Months Results * ECHO COMPLETE - CONTRAST AND STRAIN IF INDICATED (04/16/2025 9:50 AM CDT) EJECTION FRACTION 42 INTERFACE SYSTEM 04/16/2025 9:05 AM CDT Narrative INTERFACE SYSTEM - 04/16/2025 11:50 AM CDT [facility] Heart and Vascular Testing Transthoracic Echocardiogram Patient: Shady Herman Study ID: [id number] Gender: M : 1955 Age: 69 Race: SUNG Height 180.3cm Study Date: 04/16/2025 Weight: 71.9kg Access. #: [id number] BP: 125 / 65 *Referring Physician:Cassandra Arredondo Brooke *Ordering Physician:Cassandra Arredondo *Lorry Weigher:Maulik Perez RDCS, Consuelo file clerk data entry: Nurse: Indications: NICM. History: PMH: CAD. HLD. [...] AM. Prepared and Electronically Authenticated Jerzy Roberson [id number]:50:01 Procedure Note Jerzy Roberson MD - 07/22/2025 [facility] Transthoracic Echocardiogram Patient: Shady Herman Study ID:[id number] Gender: M :1955 Age: 69 Race: SUNG Height 180.3cm Study Date:04/16/2025 Weight: 71.9kg Access. #:[id number] BP: 125 /65 *Referring Physician:Cassandra Arredondo Brooke *Ordering Physician:* Cassandra Krueger *Lorry Weigher:* Jared Perez RDCS, T file clerk data entry: Nurse: Indications: NICM. History: PMH: CAD. HLD. [...] AM. Prepared and Electronically Authenticated Jerzy Roberson [id number]:50:01 us Cassandra Krueger [employer]CHOOL GUIDANCE COUNSELOR US ORDERABLES Final Result INTERFACE SYSTEM Refer to clinic/hospital department * NJ INTERROGATION EVAL REMOTE </90 D 1/2/SANDER WOODEN PENCILS LD DFB, NJ REM INTERROG PM/LDLS PM/IDS <90 D TECHREVIEW (02/19/2025 5:28 PM CDT) Narrative [facility] - 02/19/2025 5:28 PM CDT Diane Amaro RN 02/19/2025 5:50 PM Routine, Remote Device Interrogation: The patient is followed by Dr. De Lnua and by Dr. Dodson for his cardiology care. Appropriate [employer], rate responsive, biventricular ICD function. Presenting [...] future device interrogations and remotely through the [facility] follow-up system. The patient is scheduled for a routine, remote follow-up via [facility] in 3 months. Conclusion: The device is functioning as programmed. No ventricular arrhythmias were detected. Atrial arrhythmias and a few, short episodes of noise on the atrial lead were detected as described above. Eric Dodson MD CARDIAC SERVICES ORDERABLES E dited Result - Final [facility] [address] [place] [id number] from Last 3 Months Insurance [facility] [id number] RX [employer] RX Member Subscriber Plan / Payer (Ef fective 2015-Present) Name:Shady Herman Relation to Subscriber:Self Name:Shady Herman Payer ID:Not on file Group ID:[id number] Type:RX Medicare Part D Address: [address] RX 5o9 Commercial Advance Directives For more information, please contact: [phone] * Full Code (Latest Code Status on File) Date Activated Date Inactivated Comments 09/01/2023 4:00 PM 09/01/2023 10:36 PM Care Teams Probation Manager Relationship Specialty Start Date End Date Akash Izquierdo MD [address] [place] [address] PCP - General Internal Medicine 06/10/18
--- OUTSIDE RECORDS SUMMARY | 2025-05-05 17:28 | XMS_ITS | Encounter Summary ---
Author Organization [facility] Address [facility] [place] [address] Care Team Providers Care Flow Manager Name Role Phone Anna Paredes Primary Care Provider [phone] Akash Izquierdo MD Unavailable [phone] Sissy Rice RN Unavailable [phone] Richard Montague MD Unavailable [phone] Encounter Details Date Type Department Care Team (Late st Contact Info) Description 06/13/2020 Prep for Procedure [facility] [place], [place] [address] Eric Rowell MD [address] [id number] Social History Tobacco Use Types Packs/Day Years [...] DETECTED NOT DETECTED 06/14/2020 10:25 PM CDT [facility] Comment: A Not Detected (negative) test result [...] providers and patients using the following websites: https://www.[employer]/home/Covid-19/HCP/NAAT/fact-sheet2 https://www.[employer]/home/Covid-19/Patients/NAAT/ fact-sheet2 This test has been authorized by the FDA under an Emergency Use Authorization (EUA) for use by authorized laboratories. Due to the current public health emergency, [facility] is receiving a high volume of samples [...] about COVID-19 can be found at the [facility] website: www.[employer]/Covid19. Test performed at [facility] [place] [address] [place] [address] Director: ALEXI ALFARO DO,MPH FIRST TEST NO 06/13/2020 11:16 AM CDT [facility] EMPLOYED IN HEALTHCARE NO 06/13/2020 11:16 AM CDT [facility] SYMPTOMATIC DEFINED BY CDC NO 06/13/2020 11:16 AM CDT [facility] DATE OF SYMPTOM ONSET =FASTING UNKNOWN 06/13/2020 11:17 AM CDT [facility] HOSPITALIZATION STATUS NO 06/13/2020 11:16 AM CDT [facility] PATIENT IN ICU NO 06/13/2020 11:16 AM CDT [facility] RESIDENT OF [facility] NO 06/13/2020 11:16 AM CDT [facility] NOT 06/13/2020 11:17 AM CDT [facility] PATIENT'S RACE WHITE OR 06/13/2020 11:16 AM CDT [facility] ETHNICITY NONHISPANIC 06/13/2020 11:16 AM CDT [facility] SOURCE (QST) NASOPHARYNGEAL SWAB 06/13/2020 11:16 AM CDT [facility] NASOPHARYNGEAL SWAB / Unknown 06/13/2020 9:41 AM CDT us Eric Rowell MD MICROBIOLOGY - GENERAL ORDERABLE S Final Result [facility] [address] [place] [address], [facility] [address] [address], documented in this encounter Visit Diagnoses Diagnosis Screening for colorectal cancer- Primary Special screening for malignant neoplasms, colon documented in this encounter Additional Health Concerns Infection Onset Date Last Indicated Resolved Time COVID-19 Rule Out 06/13/2020 06/13/2020 06/14/2020 10:25 PM CDT COVID-19 Rule Out 02/16/2021 02/16/2021 02/17/2021 12:46 PM CDT documented as of this encounter Care Teams Flow Manager Relationship Specialty Start Date End Date Anna Paredes APNP [address] [place] [address] PCP - General FAMILY PRACTICE 08/29/18 Aaksh Izquierdo MD [address] [place] [address] PCP - Med Group - [facility] Attributed Provider 11/24/18 09/26/20 Sissy Rice, RN [address] [facility] [address] [place] [address] Cardiac Catheterization Technologist (Ambulatory) REGISTERED NURSE 10/02/19 Richard Montague MD [address] [facility] [address] [place] [address] VASCULAR SURGERY 02/02/21 documented as of this encounter
--- OUTSIDE RECORDS SUMMARY | 2025-05-05 17:28 | XMS_ITS | Continuity of Care Document ---
Author Organization [facility] Address [address] [place] [address] Phone Care Team Providers Care Airport Skilled Maintenance Supervisor Name Role Phone María Mike MD Unavailable [...] Diagnoses Date Provider Providers Copied on Encounter [facility], [address], [place], [place], [address] , tel:[phone] [facility] No Information 1 Cee Mcknight. [address], [address], [place], [place], [address], . tel: [phone] [facility], [address], [place], [place], [address] , tel: [phone] [facility] LONG-TERM USE ANTICOAGULATRI AL FIBRILLATION 7 Cee Mcknight. [address], [address], [place], [place], [address], . tel: [phone] [facility], [address], [place], [place], [address] , tel:[phone] [facility] DVRTCLO COLON W [facility] 3 6 Cee Mcknight. [address], [address], [place], [place], [address], . tel: [phone] [facility], [address], [place], [place], [address] , tel:[phone] [facility] LONG-TERM USE MEDS NECVACCIN FOR INFLUENZABENIG N HYPERTENSIONSC REEN LIPOID DISORDERSHYPER LIPIDEMIA NEC/NOS 4200 6 Cee Mcknight. [address], [address], [place], [place], [address], . tel: [phone] [facility], [address], [place], [place], [address] , tel:[phone] [facility] DEEP PHLEBITIS-LEG NEC 8200 6 Cee Mcknight. [address], [address], [place], [place], [address], [place]. tel:[phone] [facility], [address], [place], [place], [address] , tel:[phone] [facility] CHR ISCHEMIC HRT DIS NOS 6 Cee Mcknight. [address], [address] , [place], [place], [address], [place]. tel:[phone] [facility], [address], [place], [place], [address] , [place] tel:[phone] [facility] CHF NOS 6 [facility]. [address] [place] [address], [place], [address], [place]. [facility], [address], [place], [place], [address] , tel:[phone] [facility] PULM EMBOL/INFARCT NEC 5 Cee Mcknight. [address] , [place], [place], [address], [place]. tel:[phone] [facility], [address], [place], [place], [address] , [place] tel:[phone] [facility] MITRAL VALVE DISORDER 5 Cee Mcknight. [address], [address] , [place], [place], [address], [place]. tel:[phone] [facility], [address], [place], [place], [address] , [place] tel:[phone] [facility] No Information 5 Cee Mcknight. [address], [address], [place], [place], [address], [place]. tel:[phone] [facility], [address], [place], [place], [address] , tel: [facility] HISTORY OF TOBACCO USEBENIGN NEOPLASM SKIN NOS 5 Cee Mcknight. [address], [address] , [place], [place], [address], [place]. tel:[phone] [facility], [address], [place], [place], [address] , [place] tel:[phone] [facility] VACCIN FOR INFLUENZA 3-200 3 Con[facility]. [address] [facility], [place], [address], [place]. [facility], [address], [place], [place], [address] , [place] tel: [facility] CARDIAC DYSRHYTHMIA NOS May- 8200 3 Eduard Peterson. [address], [place], [place], [address], [place]. tel:[phone] [facility], [address], [place], [place], [address] , [place] tel: [facility] TACHYCARDIA NOS 9200 3 Cee Mcknight. [address], [address] , [place], [place], [address], [place]. tel:[phone] [facility], [address], [place], [place], [address] , [place] tel: [facility] ABDMNAL PAIN GENERALIZED 8200 3 Cee Mcknight. [address], [place], [place], [address], [place]. tel:[phone] [facility], [address], [place], [place], [address] , [place] tel:[phone] Administration NONRHEUM TRICUSP MAURA DIS Byron- 5-200 1 Cee Mcknight. [address], [address], [place], [place], [address], [place]. tel:[phone] [facility], [address], [place], [place], [address] , [place] tel:[phone] [facility] GENERAL OSTEOARTHROSIS Apr-0 4-200 1 Cee Mcknight. [address], [place], [place], [address], [place]. tel:[phone] [facility], [address], [place], [place], [address] , tel: [phone] Howard HUGO ND VAC STRPTCS PNEUMNI B 9-200 0 Conversion [facility]. [facility], [place], [address], . Family History Family Member Type Diagnosis Age At Onset No Information Immunizations Vaccine Date Status Comments 79490 - Influenza administered Source: [place] Unspecified 18848 - Influenza administered Source: [place] Unspecified 66765 - Influenza administered Source: [place] Unspecified 69375 - Pneumococcal_PPV23 administered S ource: Source Unspecified [...]
--- OUTSIDE RECORDS SUMMARY | 2025-05-05 17:28 | XMS_ITS | Continuity of Care Document ---
Author Organization [facility] Address [address] [place] [address] [address] [place] [address] Phone Care Team Providers Care Wellness Coordinator Name Role Phone Zay Auguste MD, MD Unavailable Unavailable Procedures Procedure Date CATARACT SURG W/IOL, 1 STAGE OFFICE/OUTPATIENT VISIT, [facility] OPHTHALMIC BIOMETRY LT DILATED EXAM RIGHT EYE DILATED EXAM LEFT EYE Advance Directives Directive Yes / No Effective Date File Name No Information Encounters Encounter Description Practice Location Reason(s) For Visit Diagnoses Date Provider Providers Copied on Encounter [facility], [address] [place] [address], [id number], tel:[phone] [facility] No Information Marvin Collazo. [address], [place], [place], [address] , [place]. [phone] Referring Provider: Zay Thacker, [address], [place], [address] . tel:[phone] OFFICE/OUTPA TIENT VISIT, [facility], [address] [place] [address] [address], [place], [place], [address], tel:[phone] [facility] No Information 5 Molina Collazo. [address], [place], [place], [address] , [place]. [phone] Referring Provider: Zay Thacker, [address], [place], [address] . tel:[phone] Family History Family Member Type Diagnosis Age At Onset No Information Payers Payer name Insurance type Covered green party ID Authoriza tion(s) No Information Social [...]
--- OUTSIDE RECORDS SUMMARY | 2025-05-05 17:28 | XMS_ITS | Encounter Summary ---
Author Organization [facility] Address [facility] [place] [address] Care Team Providers Care Route Driver Name Role Phone Anna Paredes Primary Care Provider [phone] Sissy Rice RN Unavailable [phone] Richard Montague MD Unavailable [phone] Encounter Details Date Type Department Care Team (Late st Contact Info) Description 12/29/2020 [employer] [facility] Family Medicine [facility] [address] [facility], [address] [place] [address] Saul, [facility] Provider RE:Schedule Appointment - Annual Physical Social [...] documented as of this encounter Care Teams Route Driver Relationship Specialty Start Date End Date Anna Paredes APNP [address] [place] [address] PCP - General FAMILY PRACTICE 08/29/18 Sissy Rice RN [address] [facility] [address] [place] [address] Director [employer] (Ambulatory) REGISTERED NURSE 10/02/19 Richard Montague MD [address] [facility] [address] [place] [address] VASCULAR SURGERY 02/02/21 documented as of this encounter
--- OUTSIDE RECORDS SUMMARY | 2025-05-05 17:28 | XMS_ITS | Clinical Summary ---
Author Organization [facility] Address [facility] [place] [address] Care Team Providers Care Jockey Agent Name Role Phone Anna Paredes Primary Care Provider [phone] Richard Montague MD Unavailable [phone] Allergies Active Allergy Reactions Criticality Noted [...] Heart failure with mid-range ejection fraction (HFmEF) ([facility]) 03/27/2025 Tubular adenoma of colon 03/04/2021 Colonic mass 01/09/2021 Overview (01/09/2021): Added automatically from request for surgery [id number] S/P femoral-popliteal bypass surgery 09/29/2020 Peripheral arterial disease 08/27/2020 Overview (09/16/2020): Last Assessment & Plan: 65 y.o M with RLE rest pain found to have R EIA and R SFA occlusion. -09/08: s/p OR for Right EIA dina thrombectomy and stenting, Right RESTAURANT EXPEDITOR endarterectomy, and fem-bk pop bypass with PTFE. Non-pulsatile after anastomoses completed, so did a Rethrombectomy of R EIA stent d/t absent pulses in the OR -Continue ASA, plavix and Statin for vascular patency -q4 neurovascular checks -PT/OT/OOB, encourage ambulation Screening for colon cancer 05/19/2020 Overview (05/19/2020): Added automatically from request for surgery [id number] Nonrheumatic mitral valve regurgitation 02/14/20 20 Dyslipidemia 02/14/2020 Hydrocele in adult 10/19/2019 Hematuria 12/27/2018 Cardiac pacemaker in situ 12/14/2018 SSS (sick sinus syndrome) ([facility]) 11/25 Atypical atrial flutter ([facility]) 2018 Symptomatic bradycardia 06/29/2018 Paroxysmal atrial fibrillation ([facility]) 06/29/2018 BMI 21.0-21.9, adult 02/15/2018 Pain, foot 02/15/2018 Elevated liver enzymes 02/25/2016 Hypotension 02/20/2016 A-fib ([facility]) 02/13/2016 Persistent atrial fibrillation ([facility]) 02/13/2016 Allergic rhinitis 01/16/2016 Atrial fibrillation ([facility]) 01/10/2015 Dysphagia 01/10/2015 Extremity atherosclerosis with intermittent daysi dication 10/17/2012 Hyperlipidemia 10/17/2012 Hypertension 10/17/2012 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 0 10/17/2012 Coronary artery disease invo lving [place] coronary artery of [place] heart without angina pectoris 05/05/2011 Overview (09/16/2020): Last Assessment & Plan: S/p CABG 02/2009, 09/2018 -Continue home ASA 81 and simvastatin 20 -q4 hr VS Resolved Problems Problem Noted Date Diagnosed Date Resolved Date Follow-up examination after eye surgery 06/16/2018 06/06/2020 Skin infection 05/25/2018 08/30/2018 Need for immunization against influenza 07/02/2013 06/06/2020 Encounters Date Type Department Care Team Description 04/23/2025 Results Follow-Up [facility] Internal [address] [address] Anna Paredes APNP PROSTATE SPECIFIC ANTIGEN,SCREENING, URINALYSIS, COMPREHENSIVE METABOLIC PANEL, Additional followed-up results: 4 04/19/2025 Telephone [facility] Internal [address] [address] Anna Paredes APNP Radiology Results (Chest CT) 04/18/2025 7:40 AM CDT Laboratory Only [address] [address] Anna Paredes APNP 04/18/2025 Travel 04/10/2025 Scan HEALTH INFO SRVCS Scanned, [facility] CT (SCAN) 03/28/2025 Scan HEALTH INFO SRVCS Scanned, [facility] 03/27/2025 8:40 AM CDT Office Visit [facility] [address] [address] Anna Paredes APNP Hypertension 03/27/2025 Travel from [...] MCG/ 0.5 ML DOSE 08/08/2021,12/29/2020,12/01/2020 MODERNA COVID-19 (OUTCOMES SPECIALIST JARRET DUNCAN), MRNA, LNP-S, PF, 50 MCG/ [...] , 07/08/2023, Additional history exists PHQ-2 (Physician [place]) Completed 03/27/2025 Meningococcal B Vaccine Aged Out No l onger eligible based on patient's age to complete this topic Meningococcal Vaccine Aged Out No parris pascual eligible based on patient's age to complete this topic RSV Immunizations Under 20 Months Aged Out No longer eligible based on patient's age to complete this topic Medical Devices Implanted Type Area Master [place] Device Identifier Shelf Expiration Date Model / [...] - 3.740 uIU/ML 04/18/2025 3:37 PM CDT -[facility] 04/18/2025 7:52 AM CDT Anna MARVIN LABORATORY Final Resul t -[facility] [address] [facility] [place] [address], [place] [phone] * (ABNORMAL) URINALYSIS (04/18/2025 7:52 AM CDT) COLOR (U) YELLOW 04/18/2025 3:29 PM CDT [facility] TRANSPARENCY CLEAR CLEAR 04/18/2025 3:29 PM CDT [facility] SPECIFIC GRAVITY (U) 1.025 1.003 - 1.040 04/18/2025 3:29 PM CDT [facility] U PH 6.0 5.0 - 9.0 04/18/2025 3:29 PM CDT [facility] PROTEIN RANDOM (U) TRACE(A) NEGATIVE 04/18/2025 3:29 PM CDT [facility] GLUCOSE (U) NEGATIVE NEGATIVE 04/18/2025 3:29 PM CDT [facility] KETONES MG/DL (U) NEGATIVE NEGATIVE 04/18/2025 3:29 PM CDT [facility] BILIRUBIN (U) NEGATIVE NEGATIVE 04/18/2025 3:29 PM CDT [facility] BLOOD (U) NEGATIVE NEGATIVE 04/18/2025 3:29 PM CDT [facility] UROBILINOGEN 0.2 0.0 - 2.0 EU/DL 04/18/2025 3:29 PM CDT [facility] NITRITES NEGATIVE NEGATIVE 04/18/2025 3:29 PM CDT [facility] LEUKOCYTES (U) NEGATIVE NEGATIVE 04/18/2025 3:29 PM CDT [facility] RBC/HPF 0-3 0 - 3 /HPF 04/18/2025 3:29 PM CDT [facility] WBC/HPF 0-3 0 - 3 /HPF 04/18/2025 3:29 PM CDT [facility] EPI/HPF 0-3 /HPF 04/18/2025 3:29 PM CDT [facility] BACTERIA (U) NONE SEEN NONE SEEN 04/18/2025 3:29 PM CDT [facility] HYALINE CASTS 0-2 /LPF 04/18/2025 3:29 PM CDT [facility] MUCUS FEW 04/18/2025 3:29 PM CDT [facility] URINE SPECIMEN OBTAINED BY CLEAN CATCH PROCEDURE / Unknown 04/18/2025 7:52 AM CDT Anna MARVIN URINE ORDERABLES Final Resu lt Performing Organization Address City/[facility] Co de Phone Number [address] [address], [place] [phone] * PROSTATE SPECIFIC ANTIGEN,SCREENING (04/18/2025 7:52 AM CDT) PSA 1.96 <4.00 NG/ML 04/18/2025 2:23 PM CDT [facility] Comment: ASSAY PERFORMED BY EN[employer]YME IMMUNOASSAY METHODOLOGY USING SIEMENS DIMENSION REAGENT. PATIENT RESULTS DETERMINED BY ASSAYS FROM DIFFERENT MANUFACTURERS AND/OR BY DIFFERENT METHODS MAY NOT BE COMPARABLE. 04/18/2025 7:52 AM CDT Anna MARVIN LABORATORY Final Resul t Performing Organization Address City/[facility] Co de Phone Number [facility] [address] [place] [address], [place] [phone] * (ABNORMAL) COMPREHENSIVE METABOLIC PANEL (04/18/2025 7:52 AM CDT) [facility] SODIUM S/P/B 146(H) 136 - 145 MMOL/L 04/18/2025 3:37 PM CDT [facility] POTASSIUM S/P/B 4.6 3.5 - 5.1 MMOL/L 04/18/2025 3:37 PM CDT -[facility] CHLORIDE S/P/B 109(H) 98 - 107 MMOL/L 04/18/2025 3:37 PM CDT [facility] CO2 27.9 21 - 32 MMOL/L 04/18/2025 3:37 PM T [facility] GLUCOSE 91 70 - 99 MG/DL 04/18/2025 3:37 PM CDT [facility] BUN 18 7 - 18 MG/DL 04/18/2025 3:37 PM T [facility] CREATININE S/P/B 1.21 0.70 - 1.30 MG/DL 04/18/2025 3:37 PM CDT [facility] CALCIUM S/P/B 9.4 8.4 - 10.5 MG/DL 04/18/2025 3:37 PM CDT [facility] BILIRUBIN TOTAL S/P/B 1.6(H) 0.2 - 1.0 MG/DL 04/18/2025 3:37 PM T [facility] ALKALINE PHOSPHATASE S/P/B 55 45 - 115 U/L 04/18/2025 3:37 PM CDT [facility] AST 19 15 - 37 U/L 04/18/2025 3:37 PM CDT [facility] ALT 26 16 - 63 U/L 04/18/2025 3:37 PM CDT [facility] TOTAL PROTEIN S/P/B 7.1 6.4 - 8.2 G/DL 04/18/2025 3:37 PM CDT [facility] ALBUMIN S/P/B 4.2 3.4 - 5.0 G/DL 04/18/2025 3:37 PM CDT [facility] ANION GAP 9.1 5 - 15 MMOL/L 04/18/2025 3:37 PM CDT [facility] Comment:REFERENCE RANGE NOT ESTABLISHED OSMOLALITY (CALC) 303 MOSM/KG 025 3:37 PM CDT [facility] Comment:REFERENCE RANGE NOT ESTABLISHED GFR ESTIMATE 66(L) >90 ML/MIN/1. 73 M2 04/18/2025 3:37 PM CDT [facility] GFR NOTES GFR REFERENCE S: 04/18/2025 3:37 PM T [facility] Comment: THE ESTIMATED GFR IS CALCULATED [...] CDT Anna MARVIN LABORATORY Final Resul t [facility] [address] [place] [address], * (ABNORMAL) LIPID PANEL (04/18/2025 7:52 AM CDT) CHOLESTEROL 121 <200 MG/DL 04/18/2025 3:37 PM CDT [facility] TRIGLYCERIDES 117 <150 MG/DL 04/18/2025 3:37 PM CDT [facility] HDL 40(L) >40 MG/DL 04/18/2025 3:37 PM CDT [facility] LDL-C 58 <100 MG/DL 04/18/2025 3:37 PM CDT [facility] VLDL CALCULATION 23 5 - 28 MG/DL 04/18/2025 3:37 PM CDT [facility] CHOL/HDL RATIO 3.0 0.0 - 4.0 04/18/2025 3:37 PM CDT [facility] LDL/HDL 1.5 0.41 - 2.13 04/18/2025 3:37 PM CDT [facility] NON HDL CHOLESTEROL 81 <140 MG/DL 04/18/2025 3:37 PM CDT [facility] 04/18/2025 7:52 AM CDT Anna MARVIN LABORATORY Final Resul t [facility] [address] [place] [address], * (ABNORMAL) CBC W/DIFF AUTOMATED (04/18/2025 7:52 AM CDT) WBC 8.14 4.00 - 10.80 x10'3/uL 04/18/2025 2:48 PM CDT [facility] RBC 4.16(L) 4.50 - 6.10 x10'6/uL 04/18/2025 2:48 PM CDT [facility] HGB 13.3 13.0 - 18.0 G/DL 04/18/2025 2:48 PM CDT [facility] HCT 40.4 37.0 - 52.0 % 04/18/2025 2:48 PM CDT [facility] MCV 97.1 78.0 - 100.0 FL 04/18/2025 2:48 PM CDT [facility] MCH 32.0(H) 27.0 - 31.0 PG 04/18/2025 2:48 PM CDT [facility] MCHC 32.9(L) 33.0 - 36.0 G/DL 04/18/2025 2:48 PM CDT [facility] RDW 13.3 11.5 - 14.5 % 04/18/2025 2:48 PM CDT [facility] PLT 205 150 - 350 x10'3/uL 04/18/2025 2:48 PM CDT [facility] MPV 10.6(H) 7.4 - 10.4 FL 04/18/2025 2:48 PM CDT [facility] DIFFERENTIAL TYPE AUTOMATED DIFFERENTIAL 04/18/2025 2:48 PM CDT [facility] NEUTROPHILS % 62.8 % 04/18/2025 2:48 PM CDT [facility] LYMPHOCYTES % 21.3 % 04/18/2025 2:48 PM CDT [facility] MONOCYTES % 8.0 % 04/18/2025 2:48 PM CDT [facility] EOSINOPHILS % 7.6 % 04/18/2025 2:48 PM CDT [facility] BASOPHILS % 0.2 % 04/18/2025 2:48 PM CDT [facility] IMMATURE GRANS % 0.1 % 04/18/2025 2:48 PM CDT [facility] ABS. NEUTROPHILS 5.11 1.60 - 8.30 x10'3/uL 04/18/2025 2:48 PM CDT [facility] ABS. LYMPHOCYTES 1.73 0.80 - 4.70 x10'3/uL 04/18/2025 2:48 PM CDT [facility] ABS. MONOCYTES 0.65 0.00 - 1.50 x10'3/uL 04/18/2025 2:48 PM CDT [facility] ABS. EOSINOPHILS 0.62(H) 0.00 - 0.40 x10'3/uL 04/18/2025 2:48 PM CDT [facility] ABS. BASOPHILS 0.02 0.00 - 0.20 x10'3/uL 04/18/2025 2:48 PM CDT [facility] ABS. IMMATURE GRANULOCYTES 0.01 0.00 - 0.03 x10'3/uL 04/18/2025 2:48 PM CDT [facility] 04/18/2025 7:52 AM CDT Anna MARVIN LABORATORY Final Resul t Performing Organization Address City/[facility] de Phone Number [address] [address], * URIC ACID BLOOD (04/18/2025 7:52 AM CDT) URIC ACID 4.9 3.5 - 7.2 MG/DL 04/18/2025 5:38 PM CDT [facility] 04/18/2025 7:52 AM CDT Anna MARVIN LABORATORY Final Resul t Performing Organization Address City/[facility] Co de Phone Number [address] [address], * CT GENERIC (04/10/2025) Anatomical Region Laterality Modality Other 04/10/2025 [facility] Scanned SCANNING Final Resu lt * HEPATITIS C ANTIBODY W/RFX TO HCV RNA ([facility] ONLY) (03/24/2023 9:48 AM CDT) HEPATITIS C AB NON-REACT VINCENT NON-REACT VINCENT [facility] Comment: HCV antibody was non-reactive. There is no laboratory evidence of HCV infection. In most cases, no further action is required. However, if recent HCV exposure is suspected, a test for HCV RNA (test code 65620) is suggested. For additional information please refer to http://education.[employer]INPLUS/faq/MCY92b3 (This link is being provided for informational/ educational purposes only.) 03/24/2023 9:48 AM CDT 03/25/2023 7:00 AM CDT Narrative Resulting Agency Comment Performing Organization Information: Site ID: [id number] Name: [facility] Address: Formerly named [facility] [place] [address] Director: Jodie Ward MD Anna MARVIN LABORATORY Final Resul t [employer] Kushal TABARES [facility] [id number] [place] [address] [place] [address], [place] * COLONOSCOPY GENERIC (09/10/2022) 09/10/2022 Doc [...] Most Recently Relevant to Health Maintenance Insurance Care Teams Jockey Agent Relationship Specialty Start Date End Date Anna Paredes APNP [facility] [place] [address] PCP - General FAMILY PRACTICE 08/29/18 Richard Montague MD [address] [place] [address] VASCULAR SURGERY 02/02/21
--- OUTSIDE RECORDS SUMMARY | 2025-05-05 17:28 | XMS_ITS | Encounter Summary ---
Author Organization [facility] Address [facility] [place] [address] Care Team Providers Care Media Associate Name Role Phone Anna Paredes Primary Care Provider [phone] Richard Montague MD Unavailable [phone] Encounter Details Date Type Department Care Team (Late st Contact Info) Description 02/22/2023 Havsjo Delikatesser Message Enc [facility] Medical Group Family & Internal Medicine [address] [address] [facility] Provider appointment Social History Tobacco Use Types [...] on filedocumented in this encounter Care Teams Media Associate Relationship Specialty Start Date End Date Anna Paredes APNP [address] [place] [id number] PCP - General FAMILY PRACTICE 12/4/18 Richard Montague MD [address] [place] [address] VASCULAR SURGERY 02/02/21 documented as of this encounter
--- OUTSIDE RECORDS SUMMARY | 2025-05-05 17:28 | XMS_ITS | Encounter Summary ---
Author Organization [facility] Address [facility] [place] [address] Care Team Providers Care Manager Business Planning Name Role Phone Anna Paredes Primary Care Provider [phone] Sissy Rice RN Unavailable [phone] Richard Montague MD Unavailable [phone] Encounter Details Date Type Department Care Team (Late st Contact Info) Description 02/11/2021 Prep for Procedure [facility] [place], [place] [phone] Eric Rowell MD [address] [id number] Social History Tobacco Use Types Packs/Day Years [...] DETECTED NOT DETECTED 02/17/2021 12:46 PM CDT [facility] Comment: A Not Detected (negative) test [...] providers and patients using the following websites: https://www.[employer].Admittedly/home/Covid-19/HCP/rc- bhxe-uhd5-btao-sheet.html https://www.[employer].Admittedly/home/Covid-19/Patients/ qi-ahxj-ueo2-fact-sheet.html This test has been authorized by the FDA under an Emergency Use Authorization (EUA) for use by authorized laboratories. Due to the current public health emergency, [facility] is receiving a high volume of samples [...] about COVID-19 can be found at the [facility] website: www.[employer].Admittedly/Covid19. Test performed at [facility] [address] [place] [address] Director: ALEXI ALFARO DO,MPH FIRST TEST NO 02/16/2021 12:41 PM CDT [facility] EMPLOYED IN HEALTHCARE NO 02/16/2021 12:41 PM CDT [facility] SYMPTOMATIC DEFINED BY CDC NO 02/16/2021 12:41 PM CDT [facility] DATE OF SYMPTOM ONSET UNKNOWN 02/16/2021 12:45 PM CDT [facility] HOSPITALIZATION STATUS NO 02/16/2021 12:41 PM CDT [facility] PATIENT IN ICU NO 02/16/2021 12:41 PM CDT [facility] RESIDENT OF [facility] NO 02/16/2021 12:41 PM CDT [facility] UNKNOWN 02/16/2021 12:45 PM CDT [facility] PATIENT'S RACE WHITE OR 02/16/2021 12:41 PM CDT [facility] ETHNICITY NONHISPANIC 02/16/2021 12:41 PM CDT [facility] SOURCE (QST) NASOPHARYNGEAL SWAB 02/16/2021 12:41 PM CDT [facility] NASOPHARYNGEAL SWAB / Unknown 02/16/2021 11:10 AM CDT us Eric Rowell MD MICROBIOLOGY - GENERAL ORDERABLE S Final Result [facility] [address] [place] [address], [facility] [address] [place] [address], documented in this encounter Visit Diagnoses Diagnosis Colonic mass- Primary Other specified disorder of intestines documented in this encounter Additional Health Concerns Infection Onset Date Last Indicated Resolved Time COVID-19 Rule Out 02/16/2021 02/16/2021 02/17/2021 12:46 PM CDT documented as of this encounter Care Teams Manager Business Planning Relationship Specialty Start Date End Date Anna Paredes APNP [address] [place] [address] PCP - General FAMILY PRACTICE 08/29/18 Sissy Rice, RN [address] [facility] [address] [place] [address] Switch Cleaner (Ambulatory) REGISTERED NURSE 10/02/19 Richard Montague MD [address] [facility] [address] [place] [address] VASCULAR SURGERY 02/02/21 documented as of this encounter
--- OUTSIDE RECORDS SUMMARY | 2025-05-05 17:28 | XMS_ITS | Encounter Summary ---
Author Organization [facility] Address [facility] [place] [address] Care Team Providers Care Link Trainer Mechanic Name Role Phone Anna Paredes Primary Care Provider [phone] Richard Montague MD Unavailable [phone] Encounter Details Date Type Department Care Team (Late st Contact Info) Description 08/11/2021 Pangaloret Message Enc [facility] Medical Group Family & Internal Medicine [facility] [address] [place] [address] Anna Paredes APNP [address] [place] [address] RE: Referral Request Social History [...] on filedocumented in this encounter Care Teams Link Trainer Mechanic Relationship Specialty Start Date End Date Anna Paredes APNP [facility] [place] [address] PCP - General FAMILY PRACTICE 08/29/18 Richard Montague MD [facility] [place] [address] VASCULAR SURGERY 02/02/21 documented as of this encounter
[2025-05-05] MEDS: METOPROLOL SUCCINATE EXT REL 100 MG TABCR PO (17:37)
--- NOTE | 2025-05-05 17:47 | ED_ITS ---
HPI - Arrhythmia/Palpitations General Chief Complaint: Arrhythmia/Palpitations <Donita Loza PA-C - Last Filed: 05/05/25 20:50> Stated Complaint: racing heart <Donita Loza PA-C - Last Filed: 05/05/25 20:50> Time Seen by Provider: 05/05/25 16:51 <Donita Loza PA-C - Last Filed: 05/05/25 20:50> Source: patient <JEANNIE Thomas Last Filed: 05/05/25 20:50> Mode of arrival: ambulatory <JEANNIE Thomas Last Filed: 05/05/25 20:50> Limitations: no limitations <JEANNIE Thomas Last Filed: 05/05/25 20:50> History of Present Illness HPI narrative: This is a 69-year-old male that presents to the emergency department for heart racing. Reports he noted on his watch that his heart rate was in the 110s. Has some feelings of his heart racing. He denies any chest pain or shortness of breath. Reports he has had some pain in his lower legs. Reports history of PE/DVT. <JEANNIE Thomas Last Filed: 05/05/25 20:50> Related Data Home Medications: Home Medications ?Medication ?Instructions ?Recorded ?Confirmed ?Last Taken ?Type aspirin 81 mg tablet,delayed 81 mg PO DAILY 09/03/21 09/10/22 09/09/22 History release clopidogrel 75 mg tablet 75 mg PO DAILY 09/03/21 09/10/22 09/05/22 History metoprolol succinate 100 mg 100 mg PO BID 09/03/21 09/10/22 09/10/22 History tablet,extended release 24 hr simvastatin 20 mg tablet 20 mg PO HS 09/03/21 09/10/22 09/09/22 History famotidine 20 mg tablet 20 mg PO BID 07/30/22 09/10/22 09/09/22 History <JEANNIE Thomas Last Filed: 05/05/25 20:50> Allergies/Adverse Reactions: Allergies Allergy/AdvReac Type Severity Reaction Status Date / Time Heparin Analogues Allergy Mild Unknown Verified 05/05/25 16:49 <Donita Loza PA-C - Last Filed: 05/05/25 20:50> Review of Systems 2 Review of Systems: All systems reviewed & are unremarkable except as noted in HPI and below <Donita Loza PA-C - Last Filed: 05/05/25 20:50> PMFSH Past Medical History Medical History: Medical History (Updated 05/05/25 @ 20:50 by Donita Loza PA-C) Abnormal CT scan, chest Adenomatous colon polyp GERD (gastroesophageal reflux disease) Hypertension Heart disease Coronary artery disease Allergies <Donita Loza PA-C - Last Filed: 05/05/25 20:50> Social History Social History: Social History Smoking packs per day: 1.5 Smoking cigarettes per day: 30.0 Years smoked: 31 Smoking pack-years: 46.50 Smoking status: Former smoker Tobacco type: cigarettes Smoking end date: 09/26/08 Alcohol intake: never Substance use: never Substance use type: does not use Living arrangements: with family Spiritual care concerns: No <Donita Loza PA-C - Last Filed: 05/05/25 20:50> Exam 2 Narrative: GENERAL: Well-appearing, well-nourished, and in no acute distress. HEAD: Normocephalic, atraumatic. EYES: EOMI. CHEST: Clear to auscultation. No respiratory distress. No wheezes rales or rhonchi HEART: Regular rate and rhythm. No murmur heard. Normal peripheral pulses. EXTREMITIES: Normal range of motion. No edema. SKIN: Warm, dry, no rash. NEURO: No focal deficits. Alert and oriented x3. PSYCH: Normal mood and affect <Donita Loza PA-C - Last Filed: 05/05/25 20:50> Course Course Emergency Course: Patient updated on his workup and agrees with plan of care <Donita Loza PA-C - Last Filed: 05/05/25 20:50> METAL FABRICATOR WELDER/PA Physician Supervision For this patient encounter, I reviewed the METAL FABRICATOR WELDER or PA documentation, treatment plan, and medical decision making; and I had [id number] time with this patient. <Juan Luis Lucas MD - Last Filed: 05/05/25 20:51> Consultations Consultation #1: Spoke with hospitalist about patient and workup who accepts admission < Donita Loza PA-C - Last Filed: 05/05/25 20:50> Date: 05/05/25 <Donita Loza PA-C - Last Filed: 05/05/25 20:50> Vital Signs Vital signs: Vital Signs Temperature 97.4 F L 05/05/25 16:18 Pulse Rate 118 H 05/05/25 16:18 Respiratory Rate 16 05/05/25 16:18 Blood Pressure 151/102 H 05/05/25 16:18 Pulse Oximetry 100 05/05/25 16:18 Oxygen Delivery Room Air 05/05/25 16:18 Temperature 97.4 F L 05/05/25 16:18 Pulse Rate 70 05/05/25 19:45 Respiratory Rate 17 05/05/25 19:45 Blood Pressure 136/83 05/05/25 19:31 Pulse Oximetry 99 05/05/25 19:45 Oxygen Delivery Room Air 05/05/25 16:46 <Donita Loza PA-C - Last Filed: 05/05/25 20:50> Vital Signs Temperature 97.4 F L 05/05/25 16:18 Pulse Rate 118 H 05/05/25 16:18 Respiratory Rate 16 05/05/25 16:18 Blood Pressure 151/102 H 05/05/25 16:18 Pulse Oximetry 100 05/05/25 16:18 Oxygen Delivery Room Air 05/05/25 16:18 Temperature 97.4 F L 05/05/25 16:18 Pulse Rate 70 05/05/25 19:45 Respiratory Rate 17 05/05/25 19:45 Blood Pressure 136/83 05/05/25 19:31 Pulse Oximetry 99 05/05/25 19:45 Oxygen Delivery Room Air 05/05/25 16:46 <Juan Luis Lucas MD - Last Filed: 05/05/25 20:51> MDM - Arrhythmia/Palpitations MDM Narrative Medical decision making narrative: Patient presents the emergency department for palpitations, elevated heart rate. History of PE/DVT. Tachycardic upon arrival, patient does have a pacemaker in place. Heart rate normalized with his evening dose of metoprolol. CBC metabolic panel without concerning findings. EKG without acute ST changes, baseline and 3 hour troponin are negative. CTA chest PE obtained for further evaluation. This shows small nonocclusive segmental pulmonary emboli in the right upper lobe. Small clot burden. Increasing size of a pulmonary nodule. Asymmetric left gynecomastia. Mediastinal lymphadenopathy. Spoke with hospitalist about patient and workup who accepts admission. Patient will be started on Fondaparinux as he has heparin allergy noted <Donita Loza PA-C - Last Filed: 05/05/25 20:50> Differential Diagnosis Differential diagnosis: Likely palpitations, anxiety, sinus tachycardia, artial fibrillation and other (PE, DVT) <Donita Loza PA-C - Last Filed: 05/05/25 20:50> Lab Data Attestation: I reviewed the patient's lab results. <Donita Loza PA-C - Last Filed: 05/05/25 20:50> Result diagrams: 05/05/25 16:46 05/05/25 16:46 <JEANNIE Thomas Last Filed: 05/05/25 20:50> Labs: Lab Results 05/05/25 05/05/25 Range/Units 16:46 19:28 WBC 8.2 (4.5-10.0) K/mm3 RBC 4.30 L (4.6-6.20) M/mm3 Hgb 13.8 L (14.0-18.0) g/dL Hct 41.4 L (42.0-52.0) % MCV 96.3 (80-100) fl MCH 32.1 (26-34) pg MCHC 33.3 (32-36) g/dl RDW 13.1 (11.5-14.5) % Plt Count 193 (150-375) k/mm3 MPV 9.8 (7.4-10.4) fl Immature Gran % (Auto) 0.2 (0-0.5) % Neut % (Auto) 61.7 (45.5-73.1) % Lymph % (Auto) 24.9 (18.3-44.2) % Sharkey % (Auto) 9.0 H (2.6-8.5) % Eos % (Auto) 3.8 (0-4.4) % Baso % (Auto) 0.4 (0.2-1.2) % Lymph # (Auto) 2.05 (0.9-3.2) K/mm3 Sharkey # (Auto) 0.7 H (0.1-0.6) K/mm3 Eos # (Auto) 0.3 (0-0.3) K/mm3 Baso # (Auto) 0.0 (0.0-0.1) K/mm3 Abs Immat Gran (auto) 0.02 (0.00-0.031) K/mm3 Absolute Neuts (auto) 5.1 (1.3-6.7) K/mm3 Absolute Nucleated RBC 0.000 (0.0-0.012) K/mm3 Nucleated RBC % 0.0 (0.0-0.2) % PT 14.0 (11.1-14.7) Seconds INR 1.1 APTT 25.8 (22.3-36.8) Seconds Sodium 140 (137-145) mmol/L Potassium 4.3 (3.4-5.0) mmol/L Chloride 104 (98-107) mmol/L Carbon Dioxide 29 (22-30) mmol/L Anion Gap 7 (4-12) mmol/L BUN 20 (9-20) mg/dL Creatinine 1.22 (0.7-1.3) mg/dL Estim Creat Clear Calc 56 ml/min Estimated GFR 59 (59 - ) Glucose 98 (65-110) mg/dL Calcium 9.8 (8.4-10.2) mg/dL Total Bilirubin 2.1 H (0.2-1.3) mg/dL AST 47 (17-59) U/L ALT 32 (6-50) U/L Alkaline Phosphatase 55 (38-126) U/L Troponin I < 0.012 < 0.012 (0.000-0.034) ng/mL NT-Pro-B Natriuret Pep 1840 H (19.9-100) pg/mL Total Protein 8.3 H (6.3-8.2) g/dL Albumin 4.6 (3.5-5.1) g/dL Lipase 208 (23-300) U/L <Donita Loza PA-C - Last Filed: 05/05/25 20:50> Lab Results 05/05/25 05/05/25 Range/Units 16:46 19:28 WBC 8.2 (4.5-10.0) K/mm3 RBC 4.30 L (4.6-6.20) M/mm3 Hgb 13.8 L (14.0-18.0) g/dL Hct 41.4 L (42.0-52.0) % MCV 96.3 (80-100) fl MCH 32.1 (26-34) pg MCHC 33.3 (32-36) g/dl RDW 13.1 (11.5-14.5) % Plt Count 193 (150-375) k/mm3 MPV 9.8 (7.4-10.4) fl Immature Gran % (Auto) 0.2 (0-0.5) % Neut % (Auto) 61.7 (45.5-73.1) % Lymph % (Auto) 24.9 (18.3-44.2) % Sharkey % (Auto) 9.0 H (2.6-8.5) % Eos % (Auto) 3.8 (0-4.4) % Baso % (Auto) 0.4 (0.2-1.2) % Lymph # (Auto) 2.05 (0.9-3.2) K/mm3 Sharkey # (Auto) 0.7 H (0.1-0.6) K/mm3 Eos # (Auto) 0.3 (0-0.3) K/mm3 Baso # (Auto) 0.0 (0.0-0.1) K/mm3 Abs Immat Gran (auto) 0.02 (0.00-0.031) K/mm3 Absolute Neuts (auto) 5.1 (1.3-6.7) K/mm3 Absolute Nucleated RBC 0.000 (0.0-0.012) K/mm3 Nucleated RBC % 0.0 (0.0-0.2) % PT 14.0 (11.1-14.7) Seconds INR 1.1 APTT 25.8 (22.3-36.8) Seconds Sodium 140 (137-145) mmol/L Potassium 4.3 (3.4-5.0) mmol/L Chloride 104 (98-107) mmol/L Carbon Dioxide 29 (22-30) mmol/L Anion Gap 7 (4-12) mmol/L BUN 20 (9-20) mg/dL Creatinine 1.22 (0.7-1.3) mg/dL Estim Creat Clear Calc 56 ml/min Estimated GFR 59 (59 - ) Glucose 98 (65-110) mg/dL Calcium 9.8 (8.4-10.2) mg/dL Total Bilirubin 2.1 H (0.2-1.3) mg/dL AST 47 (17-59) U/L ALT 32 (6-50) U/L Alkaline Phosphatase 55 (38-126) U/L Troponin I < 0.012 < 0.012 (0.000-0.034) ng/mL NT-Pro-B Natriuret Pep 1840 H (19.9-100) pg/mL Total Protein 8.3 H (6.3-8.2) g/dL Albumin 4.6 (3.5-5.1) g/dL Lipase 208 (23-300) U/L <Juan Luis Lucas MD - Last Filed: 05/05/25 20:51> Imaging Data Radiologist's impression: ITS Impressions Chest CTA 05/05/25 17:46 IMPRESSION: Small nonocclusive segmental pulmonary emboli in the right upper lobe. Small clot burden, noting inadequate visualization of the subsegmental and segmental arteries in the right middle lobe and right lower lobe. RV/LV ratio less than 1. Hepatic vein reflux as can be seen with right heart dysfunction. 9 mm anterior groundglass nodule in the right upper lobe, slightly increased in size since 2022 examination, recommend referral for resection. Asymmetric left gynecomastia, recommend mammography and breast ultrasound. Mediastinal lymphadenopathy. <Donita Loza PA-C - Last Filed: 05/05/25 20:50> Critical Care Time Critical Care Time Critical Care Time: Yes <Donita Loza PA-C - Last Filed: 05/05/25 20:50> Total Critical Care Time: 35 <Donita Loaz PA-C - Last Filed: 05/05/25 20:50> Discharge Plan Discharge Clinical Impression: Pulmonary embolism Qualifiers: Pulmonary embolism type: single subsegmental (without acute cor pulmonale) Q ualified Code(s): I26.93 - Single subsegmental thrombotic pulmonary embolism without acute cor pulmonale <Donita Loza PA-C - Last Filed: 05/05/25 20:50> Patient Disposition: Still a Patient <Donita Loza PA-C - Last Filed: 05/05/25 20:50> Condition: Serious <Donita Loza PA-C - Last Filed: 05/05/25 20:50>
[2025-05-05 18:51] LABS: NT Pro B Type Natriuretic Pept 1840 pg/mL (19.9-100)
--- NOTE | 2025-05-05 19:19 | PC.NURSE ---
Report received from LADARIUS Lux. Assumed care of patient at this time.
[2025-05-05] MEDS: FONDAPARINUX SODIUM 2.5 MG/0.5 ML SYRINGE SUB-Q (19:35)
[2025-05-05] MEDS: FONDAPARINUX SODIUM 5 MG/0.4 ML SYRINGE SUB-Q (19:36)
--- NOTE | 2025-05-05 19:53 | P.HP_ITS ---
H&P: HPI History of Present Illness Date/Time: 05/05/25 19:53 Chief Complaint: Tachycardia Narrative: This is a very pleasant 69-year-old male patient with past medical history significant of atrial fibrillation status post defibrillator placement, coronary artery disease status post three-vessel CABG, hyperlipidemia, hypertension and GERD who comes to the emergency room today after noting that his heart rate was in the 1 teens this afternoon at approximately 2:30 p.m.. Patient states he did not have any associated dyspnea or pain but was concerned and this prompted him to come to the emergency room. In the emergency room workup was performed showing an EKG demonstrating a ventricular paced rhythm with a rate of 120. CBC unremarkable with wbc's of 8.2, H&H of 13.8/41.4 and platelets of 193. Coags w ere unremarkable, metabolic panel unremarkable with exception of bilirubin of 2.1, BNP of 1840, and a negative troponin. CT of the chest was performed that shows a small nonocclusive segmental pulmonary emboli in the right upper lobe. There is a small clot burden noting inadequate visualization of the subsegmental and segmental arteries in the right middle lobe and right lower lobe. The right ventricle/left ventricle ratio was less than 1. Hepatic vein reflux as could be seen with right heart dysfunction is present. There is mediastinal lymphadenopathy present and asymmetric left gynecomastia with recommended day street for mammography and breast ultrasound. In addition there is a 9 mm anterior ground-glass nodule in the right upper lobe that is slightly increased in size since 2022 examination and recommend referral for resection. Patient has a noted history to Allergy of heparin. Upon questioning patient how he came about this information he notes that when he was being worked up for his 3 vessel CABG performed at [facility] they advised that he was allergic to heparin. Therefore, patient being started on therapeutic Fondaparinux and is being admitted to the hospital in the current setting. Will consult pulmonology. 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-C) Abnormal CT scan, chest Adenomatous colon polyp GERD (gastroesophageal reflux disease) Hypertension Heart disease Coronary artery disease Allergies Social History Social History Smoking packs per day: 1.5 Smoking cigarettes per day: 30.0 Years smoked: 31 Smoking pack-years: 46.50 Smoking status: Former smoker Tobacco type: cigarettes Smoking end date: 09/26/08 Alcohol intake: never Substance use: never Substance use type: does not use Living arrangements: with family Spiritual care concerns: No Meds Home Medications and Allergies Home Medications ?Medication ?Instructions ?Recorded ?Confirmed ?Type aspirin 81 mg tablet,delayed 81 mg PO DAILY 09/03/21 09/10/22 History release clopidogrel 75 mg tablet 75 mg PO DAILY 09/03/21 09/10/22 History metoprolol succinate 100 mg 100 mg PO BID 09/03/21 09/10/22 History tablet,extended release 24 hr simvastatin 20 mg tablet 20 mg PO HS 09/03/21 09/10/22 History famotidine 20 mg tablet 20 mg PO BID 07/30/22 09/10/22 History pantoprazole 40 mg tablet,delayed 40 mg PO QAM #30 tabs 10/11/23 Rx release Allergies Allergy/AdvReac Type Severity Reaction Status Date / Time Heparin Analogues Allergy Mild Unknown Verified 05/05/25 16:49 Vital Signs Vital Signs - 24 hr 05/05/25 16:18 05/05/25 16:46 05/05/25 16:48 Temperature 97.4 F L Pulse Rate 118 H 117 H 117 H Respiratory Rate 16 17 17 Blood Pressure 151/102 H 144/95 H 144/95 H Pulse Oximetry 100 100 100 Oxygen Delivery Room Air Room Air 05/05/25 17:37 05/05/25 17:38 05/05/25 19:06 Temperature Pulse Rate 120 H 120 H 93 Respiratory Rate 17 16 Blood Pressure 146/102 H Pulse Oximetry 99 96 Oxygen Delivery 05/05/25 19:15 05/05/25 19:30 05/05/25 19:31 Temperature Pulse Rate 98 102 H 102 H Respiratory Rate 21 H 12 13 Blood Pressure 136/83 Pulse Oximetry 98 100 100 Oxygen Delivery 05/05/25 19:45 Temperature Pulse Rate 70 Respiratory Rate 17 Blood Pressure Pulse Oximetry 99 Oxygen Delivery Exam Const: General: comfortable and no acute distress Other: Sitting in stretcher without any complaints at this time. HENMT: Face/Nose/Sinus: Normal nares present Mouth: Yes moist mucous membranes Eyes: General: appearance normal, both eyes and all related structures Sclera: sclerae normal Pupils: Equal, round and reactive pupils present EOM: EOMs intact bilaterally Neck: Neck: supple and no JVD Lymphatic: lymphadenopathy not noted Resp: Effort & Inspection: normal respiratory effort Auscultation: clear to auscultation bilaterally Cardio: Rate: tachycardic Rhythm: regular rhythm Heart sounds: no gallops, no murmurs and no rubs GI: GI Palp: Yes Soft to palpation and No Tenderness to palpation present (GI) Auscultation: normal bowel sounds Skin: General skin exam: normal color, no rashes or lesions noted and no erythema Wounds: no wounds Neuro: General: gait normal Speech: normal speech Motor exam (neuro): 5/5 motor strength present throughout and Normal motor muscle tone present throughout Sensory Exam: normal sensation Extrem: General: normal to inspection, no edema and no pedal edema Psych: Mental Status: mental status grossly normal Affect: normal affect H&P: Results Labs Labs: Short CBC 05/05/25 Range/Units 16:46 WBC 8.2 (4.5-10.0) K/mm3 Hgb 13.8 L (14.0-18.0) g/dL Hct 41.4 L (42.0-52.0) % Plt Count 193 (150-375) k/mm3 BMP 05/05/25 16:46 Sodium 140 Potassium 4.3 Chloride 104 Carbon Dioxide 29 BUN 20 Creatinine 1.22 Glucose 98 Calcium 9.8 Cardiac Enzymes 05/05/25 Range/Units 16:46 Troponin I < 0.012 (0.000-0.034) ng/mL Liver Function 05/05/25 Range/Units 16:46 Total Bilirubin 2.1 H (0.2-1.3) mg/dL AST 47 (17-59) U/L ALT 32 (6-50) U/L Alkaline Phosphatase 55 (38-126) U/L Albumin 4.6 (3.5-5.1) g/dL Assessment and Plan Assessment and plan (1) Pulmonary embolism: Qualifiers: Pulmonary embolism type: single subsegmental (without acute cor pulmonale) Qualified Code(s): I26.93 - Single subsegmental thrombotic pulmonary embolism without acute cor pulmonale Code(s): I26.99 - Other pulmonary embolism without acute cor pulmonale Status: Acute Assessment and Plan: * As noted per CTA of chest and as independently reviewed by this provider. * Supplemental oxygen as needed * Arixtra 7.5 mg subQ daily for anticoagulation given stated heparin allergy. * ECHO ordered - Consider consult of Cards if abnormal with right heart strain. Low suspicion as pt has normal trop. * Consult Pulmonology * Monitor and trend labs and vital signs * Telemetry (2) Abnormal CT scan, chest: Code(s): R93.89 - Abnormal findings on diagnostic imaging of other specified body structures Status: Acute Assessment and Plan: * Findings not only acute pulmonary emboli but also of enlarging ground-glass nodule that radiology is recommending referral for resection. * Consult pulmonology (3) Coronary artery disease: Code(s): I25.10 - Atherosclerotic heart disease of [place] coronary artery without angina pectoris Status: Chronic Assessment and Plan: * Continue aspirin and Plavix when doses have been verified and confirmed. * Telemetry (4) GERD (gastroesophageal reflux disease): Code(s): K21.9 - Gastro-esophageal reflux disease without esophagitis Status: Chronic Assessment and Plan: * Continue famotidine and or Protonix once patient's doses have been confirmed and verified. Quality VTE Prophylaxis VTE prophylaxis: pharmacologic ordered Hospitalist [facility] Advance Care Plan I have confirmed that the patient's Advanced Care Plan is present, code status is documented, or surrogate decision maker is listed in patient medical record.: Yes Medication Reconciliation I have utilized all available resources to obtain, update and review the patie nts current medications (includes all prescriptions, OTC, herbals, cannabis, and nutritional supplements).: Yes
[2025-05-05 19:55] LABS: Troponin I < 0.012 ng/mL (0.000-0.034)
--- NOTE | 2025-05-05 20:48 | ADMGEN ---
This patient, Shady Herman, was admitted to IMU Room 212-01. Patient/family oriented to hospital policies and general routines including ID bracelet, bed and alarms, visiting hours, pain management, procedures, bathroom and other care routines, personal items, smoking policy, room service/diet, and visiting hours. Information on how to activate the Rapid Response Team has been discussed. Patient/Family are encouraged to report perceived risks to care and to ask questions if they do not understand what they are told or what they should do.
[2025-05-05 22:56] LABS: Troponin I < 0.012 ng/mL (0.000-0.034)
[2025-05-06] VITALS (15 sets, daily range): BP systolic 125–134; BP diastolic 71–89; PULSE 70–120; RESP 16–20; TEMP 36.3–36.8; O2SAT 97–99
--- NOTE | 2025-05-06 | ECHO_ITS ---
Patient Info Name: Shady Herman Age: 69 years : 1955 Gender: Male Ht: 72 in Wt: 164 lbs BSA: 1.94 m2 HR: 70 bpm BP: 134 / 89 mmHg Technical Quality: Good Exam Date: 05/06/2025 3:07 PM Patient Status: I Admit Date: 05/06/2025 Exam Type: CA echo doppler w bubble study Complete two-dimensional, color flow and Doppler transthoracic echocardiogram is performed with agitated saline. Staff Referring Physician: Donita Loza PAC Ordnance Equipment Worker: Kayla Milligan Attending Provider: Ronnell Fox MD Contrast/Agitated Saline Contrast/Ag. Saline: Agitated Saline Amount: 18.00 ml Existing IV Access: Yes IV Access Condition: patent with no signs of infiltration Summary 1. The left ventricle is normal in size with moderately reduced systolic function. The left ventricular ejection fraction is visually estimated to be 30-35%. 2. The right ventricle is normal in size with reduced systolic function. 3. The left atrium is severely dilated. 4. There is an echo density in the right atrium that likely represents a catheter or pacemaker leads. 5. The right atrium is dilated. 6. Agitated saline study did not reveal [id number] shunts. 7. There is mild pulmonary hypertension. Left Ventricle The left ventricle is normal in size with moderately reduced systolic function. The left ventricular ejection fraction is visually estimated to be 30-35%. Right Ventricle The right ventricle is normal in size with reduced systolic function. Left Atria The left atrium is severely dilated. Right Atria There is an echo density in the right atrium that likely represents a catheter or pacemaker leads. The right atrium is dilated. Atrial Septum Agitated saline study did not reveal [id number] shunts. Aortic Valve The aortic valve is trileaflet and opens well. There is no aortic regurgitation. Pulmonic Valve The pulmonic valve is not well visualized. There is no color Doppler evidence of pulmonic valve regurgitation. Mitral Valve The mitral valve leaflets are normal. There is trace mitral regurgitation. Tricuspid Valve The tricuspid valve is normal. There is moderate tricuspid regurgitation. Pulmonary Arteries Pulmonary arterial systolic pressure is estimated at 44 mmHg. There is mild pulmonary hypertension. Pericardium/Pleural Pericardium is normal in appearance with no evidence for significant pericardial effusion. Inferior Vena Cava Normal inferior vena cava with <50% collapse upon inspiration consistent with elevated right atrial pressure, 8 mmHg. Aorta The aortic root at the level of the sinus of Valsalva measures 3.1 cm in diameter. Left Ventricular Outflow Tract Name Value Normal LVOT 2D LVOT Diameter 2.3 cm LVOT Doppler LVOT Peak Velocity 63 cm/s LVOT Peak Gradient 2 mmHg LVOT Mean Gradient 1 mmHg LVOT VTI 13 cm LVOT VTI/AV VTI Ratio 0.7 LVOT Stroke Volume 58 ml LVOT CO 11.8 l/min LVOT CI 6.1 l/min/m2 Pulmonic Valve Name Value Normal PV Doppler PV Peak Velocity 55 cm/s PV Peak Gradient 1 mmHg Mitral Valve Name Value Normal MV Diastolic Function MV E Peak Velocity 70 cm/s MV A Peak Velocity 2 cm/s MV E/A 33.6 MV Decel Time (PW) 274 ms MV Annular TDI MV E/e' (Septal) 7.2 MV E/e' (Lateral) 6.6 MV E/e' (Average) 6.9 Tricuspid Valve Name Value Normal TV Regurgitation Doppler TR Peak Velocity 302 cm/s TR Peak Gradient 36 mmHg Estimated PAP/RSVP RA Pressure 8 mmHg <=5 PA Systolic Pressure 44 mmHg <36 RV Systolic Pressure 44 mmHg <36 TV Annular TDI TV Lateral Teresita s' Velocity 8.6 cm/s >=9.5 Aorta Name Value Normal Ascending Aorta Ao Root Diameter (MM) 3.2 cm Ao Root Diam Index (MM) 1.7 cm/m2 Aortic Valve Name Value Normal AV Doppler AV Peak Velocity 92 cm/s AV Peak Gradient 3 mmHg AV Mean Gradient 2 mmHg AV VTI 20 cm AV Area (Cont Eq VTI) 2.8 cm2 >=3.0 AV Area (Cont Eq Kwan) 3.0 cm2 AV DI (Kwan) 0.69 AV Regurgitation 2D LVOT Area 4.3 cm2 Ventricles Name Value Normal LV Dimensions 2D/MM IVS Diastolic Thickness (2D) 1.1 cm 0.6-1.0 LVID Diastole (2D) 5.3 cm 4.2-5.8 LVIW Diastolic Thickness (2D) 0.8 cm 0.6-1.0 LVID Systole (2D) 4.8 cm 2.5-4.0 LVOT Diameter 2.3 cm LV Mass (2D Cubed) 195.11 g 88.00-224.00 LV Mass Index (2D Cubed) 100 g/m2 49-115 Relative Wall Thickness (2D) 0.32 <=0.42 LV Fractional Shortening/Ejection Fraction 2D/MM LV Fractional Shortening (2D) 9 % 25-43 LV EF (2D Teichholz) 20 % LV Diastolic Volume (4C MOD) 136 ml LV EF (4C MOD) 36 % LV Diastolic Volume (2C MOD) 147 ml LV EF (2C MOD) 34 % LV Diastolic Volume (BP MOD) 145 ml 62-150 LV Diastolic Volume Index (BP MOD) 74 ml/m2 34-74 LV Systolic Volume (BP MOD) 97 ml 21-61 LV Systolic Volume Index (BP MOD) 50 ml/m2 11-31 LV EF (BP MOD) 33 % 52-72 LV Diastolic Length (4C) 8.4 cm LV Systolic Length (4C) 7.1 cm LV Stroke Volume (4C MOD) 48 ml RV Dimensions 2D/MM RVID Diastole (2D) 4.7 cm 2.1-3.5 Atria Name Value Normal LA Dimensions LA Dimension (MM) 5.2 cm 3.0-4.0 LA Volume (4C A-L) 129 ml LA Volume (BP A-L) 137 ml RA Dimensions RA Systolic Major Victor Length (4C) 6.4 cm 2.1-2.7 RA Area (4C) 28.2 cm2 <=18.0 Report Signatures
[2025-05-06 04:15] LABS: Hematocrit 44.7 % (42.0-52.0); Hemoglobin 15.1 g/dL (14.0-18.0); Immature Granulocyte Percent A 0.3 % (0-0.5); Lymphocytes Absolute Auto 2.41 K/mm3 (0.9-3.2); Mean Corpuscular HGB Conc 33.8 g/dl (32-36); Mean Corpuscular Hemoglobin 32.3 pg (26-34); Mean Corpuscular Volume 95.7 fl (80-100); Nucleated Red Blood Cells Absolute Auto 0.000 K/mm3 (0.0-0.012); Nucleated Red Blood Cells Perc 0.0 % (0.0-0.2); Platelet Count Result 209 k/mm3 (150-375); Red Blood Count 4.67 M/mm3 (4.6-6.20); White Blood Count 9.5 K/mm3 (4.5-10.0)
[2025-05-06 04:28] LABS: INR 1.1; Prothrombin Time 13.8 Seconds (11.1-14.7)
[2025-05-06 04:29] LABS: Partial Thromboplastin Time 32.4 Seconds (22.3-36.8)
[2025-05-06 04:31] LABS: Alanine Aminotransferase 39 U/L (6-50); Albumin Level 4.9 g/dL (3.5-5.1); Alkaline Phosphatase 57 U/L (38-126); Anion Gap 11 mmol/L (4-12); Aspartate Amino Transferase 50 U/L (17-59); Bilirubin,Total 2.1 mg/dL (0.2-1.3); Blood Urea Nitrogen 20 mg/dL (9-20); Calcium 9.9 mg/dL (8.4-10.2); Carbon Dioxide 27 mmol/L (22-30); Chloride 103 mmol/L (98-107); Estimated CRCL calculation 53 ml/min; Estimated Glomerular Filt Rate 60; Glucose 92 mg/dL (65-110); Magnesium 1.8 mg/dL (1.6-2.3); Potassium 4.2 mmol/L (3.4-5.0); Sodium 141 mmol/L (137-145); Total Protein 8.6 g/dL (6.3-8.2)
[2025-05-06 08:34] LABS: NT Pro B Type Natriuretic Pept 2930 pg/mL (19.9-100)
--- NOTE | 2025-05-06 09:40 | P.CONPL_ITS ---
Assessment and Plan Assessment and plan (1) Pulmonary embolism: Qualifiers: Pulmonary embolism type: single subsegmental (without acute cor pulmonale) Qualified Code(s): I26.93 - Single subsegmental thrombotic pulmonary embolism without acute cor pulmonale Code(s): I26.99 - Other pulmonary embolism without acute cor pulmonale Status: Acute Assessment and Plan: 69-year-old with a history of hypertension, hyperlipidemia, coronary artery disease status post CABG February of 2009, atrial fibrillation since 2002 status post permanent pacemaker September of 2017 then developed low EF and status post defibrillator 08/2023, peripheral arterial disease status post right femoral bypass 09/01/2020 on plavix and ASA 81, DVT X 3 and PE X1 s/p warfarin 2001 to 09/01/2020. Regarding his DVT # 1 and PE # 1. In 2001 the patient developed right leg pain and ankle swelling and was treated for congestive heart failure. 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 He was treated at [facility] in [place] for ankle DVT and lung blood clot and was discharged on warfarin. 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 Patient was treated with Lasix and his warfarin was continued. 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 As workup for his congestive heart failure he was told he needed a CABG at [facility]. Ultrasound showed right ankle DVT but no lung involvement. His left internal jugular was clogged and he does not know if there was a thrombus or not. He was transferred to [facility] and underwent a 3 vessel coronary artery bypass. At that time he was told he was allergic to heparin but does not know any details and he was discharged on warfarin. DVT #2 and # 3. Occurred while he was on warfarin and aspirin 81 and he does not remember the doctor's stating that his warfarin was low and he would get his warfarin levels checked routinely and generally they were in the 2-3 range but sometimes a little higher or a little lower. 09/01/2020: Patient had a femoral bypass at [facility] and warfarin was discontinued and he was discharged on Plavix 75 and aspirin 81. Follows with [facility] (Dr Bradford De Luna and Dr Dodson) and had an echocardiogram on 03/2024 with an EF of 48%. Echocardiogram 03/2025 with an EF of 42%. 05/05/25: Patient is usual state of health. In the afternoon he woke up and his heart rate was 117. He continued to deny any shortness of breath. He presented to the emergency department with blood pressure 151/102, heart rate 118, room air saturations 100%. White blood cell count 8.2, creatinine 1.22, troponin negative x3, BNP 1840. CT angiogram of the chest showed nonocclusive PE right upper lobe with an adequate visualizations of the sub segmental and segmental right middle lobe and right lower lobe arteries. Patient was started on for fundaparinux. Repeat BNP 2930. Plan: patient with a history of recurrent DVT and PE since 2001 and recommend lifelong anticoagulation. Currently on fondaparinux due to heparin allergy. He has been hemodynamically stable with adequate BP and on room air with saturations 98%. Echocardiogram and lower extremity Dopplers have been ordered. Would monitor the patient overnight to make sure there is no acute bleeding with anticoagulation. Will transition patient to oral anticoagulant that his insurance will cover. Need to discuss with vascular surgery team at [facility] the need for dual anti-platelet therapy while he is anticoagulated for his PE. Discussed with Dr. Goddard, will follow with you. (2) Pulmonary nodule: Code(s): R91.1 - Solitary pulmonary nodule Status: Acute Assessment and Plan: Patient is a 51 pack year tobacco use, quit in 2008. I reviewed patient's CT scan from 04/06/2023 and 05/05/2023 with the radiologist. Patient has an apical right upper lobe ground-glass infiltrate with minimal change since 04/06/2023 for his measurements 7 point 7-8.1 but difficult to measure given its ground-glass appearance. Plan: Recommend repeating CT scan in 6 months. (3) PAD (peripheral artery disease): Code(s): I73.9 - Peripheral vascular disease, unspecified Status: Acute Assessment and Plan: Patient has been on aspirin 81 and Plavix 75 q.day since his right femoral arterial bypass on 09/01/2020 at [facility]. Patient is followed in the vascular clinic and was told he would be on Plavix and aspirin the remainder of his life. 05/06/25: need to discuss with vascular surgery team at [facility] the need for dual anti-platelet therapy while he is anticoagulated for his PE. History of Present Illness History of Present Illness Consult date: 05/06/25 Chief complaint: Pulmonary embolism Narrative: 05/06/2025: This is a new pulmonary consult for pulmonary embolism. 69-year-old with a history of hypertension, hyperlipidemia, coronary artery disease status post CABG February of 2009, atrial fibrillation since 2002 status post permanent pacemaker September of 2017 then developed low EF and status post defibrillator 08/2023, peripheral arterial disease status post right femoral bypass 09/01/2020 on plavix and ASA 81, DVT X 3 and PE X1 s/p warfarin 2001 to 09/01/2020. Regarding his DVT # 1 and PE # 1. In 2001 the patient developed right leg pain and ankle swelling and a CHF exacerbation. 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 He was treated at [facility] in [place] for CHF, ankle DVT and lung blood clot and was discharged on warfarin. 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 Patient was treated for CHF exacerbation with Lasix and his warfarin was continued. 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 As workup for his CHF exacerbation he was told he needed a CABG. Ultrasound showed right ankle DVT but no lung involvement. His left internal jugular was clogged and he does not know if there was a thrombus or not. Given his CHF, left internal jugular occlusion he was transferred to [facility] and underwent a 3 vessel coronary artery bypass. At that time he was told he was allergic to heparin but does not know any details and he was discharged on warfarin. discharged at 10 days due to difficulty getting his warfarin adjusted. DVT #2 And # 3. Occurred while he was on warfarin and aspirin 81 and he does not remember the doctor's stating that his warfarin was low and he would get his warfarin levels checked routinely and generally they were in the 2-3 range but sometimes a little higher or a little lower. 09/01/2020: Patient had a femoral bypass at [facility] and warfarin was discontinued and he was discharged on Plavix 75 and aspirin 81. Baseline: Patient walks on the treadmill Tuesday and Tuesday for an hour and 10 minutes at 3 miles, he sweats, his heart rate goes to 115 and he does this at the gymnasium. On Tuesdays and he stretches in his house and does light work out. Patient smoked tobacco from 1976 to December of 2008 at 1 and half packs per day for total of 51 pack years. Patient was exposed to secondhand smoke from his father. Patient denies sand blasting, welding, asbestos were, professional painting, steel sand miller, coal mining, construction work. Patient was in his usual state of health on 05/05/2025 in the morning. He was doing fine with no fever chills, rigors, phlegm production, hemoptysis, shortness of breath. In the afternoon he woke up and his heart rate was 117. He continued to deny any shortness of breath. He presented to the emergency department with blood pressure 151/102, heart rate 118, room air saturations 100%. White blood cell count 8.2, creatinine 1.22, troponin negative x3, BNP 1840. CT angiogram of the chest showed nonocclusive PE right upper lobe with an adequate visualizations of the sub segmental and segmental right middle lobe and right lower lobe arteries. There is a 9 mm apical right upper lobe ground-glass infiltrate with minimal change since 04/06/2023. Patient was started on for fundaparinux. Patient denied any recent leg trauma, long car rides, train rides or plane rides. Patient states he has no family history of blood clots. DATA: 05/05/25: EXAMINATION: CTA chest PE protocol INDICATION: palpitations, tachycardia, hx PE COMPARISON: CT lung screening 04/10/2025 and 04/06/2023. FINDINGS: Lung parenchyma and airways: Architectural simplification and extensive scarring in the lower lungs. 9 mm groundglass nodule in the right upper lobe. 4 mm solid nodule in the right upper lobe, stable since 2022, likely benign. Patent airways. Pleura: Unremarkable. Thoracic inlet, axillae and chest wall: Asymmetric gynecomastia on the left. Venous collaterals in the right chest wall. Thoracic aorta: No significant dilation. No dissection. Mediastinum: Dilated central pulmonary arteries enlarged pretracheal lymph nodes. Heart and pericardium: Status post CABG. Pacing leads terminating in good position. Cardiomegaly. RV/LV ratio less than 1. Coronary artery calcifications: Moderate. Upper abdomen: Hepatic vein reflux. Gallstone versus adjacent vascular calcification. Right renal scarring. Bones: No acute osseous finding. Pulmonary arteries: Study quality: Motion artifact limits evaluation of the subsegmental and segmental right middle lobe and right lower lobe pulmonary arteries. Small nonocclusive segmental pulmonary emboli in the right upper lobe. IMPRESSION: Small nonocclusive segmental pulmonary emboli in the right upper lobe. Small clot burden, noting inadequate visualization of the subsegmental and segmental arteries in the right middle lobe and right lower lobe. RV/LV ratio less than 1. Hepatic vein reflux as can be seen with right heart dysfunction. 9 mm anterior groundglass nodule in the right upper lobe, slightly increased in size since 2022 examination, recommend referral for resection. Asymmetric left gynecomastia, recommend mammography and breast ultrasound. Mediastinal lymphadenopathy. 04/10/25: CT Scan of the Chest without Contrast: Clinical Indication: Lung cancer screening, nicotine dependence Technique: Contiguous sections were acquired throughout the chest without intravenous contrast. Dose reduction technique was used on this scan by utilizing automated exposure control and iterative reconstruction technique. The dose-length product (DLP) was 112.20 mGy-cm. COMPARISON: 04/06/2023 Findings: There is no evidence of any significant mediastinal, hilar or axillary lymphadenopathy. There are atherosclerotic calcifications of the aorta and coronary arteries. There is no evidence of pleural or pericardial effusion. Stable right apical groundglass nodule. Stable 3 mm apical nodule. Stable scarring right upper lobe posteriorly. Stable bilateral lower lobe scarring. Stable nodularity with calcification at the right lung base. Bibasilar emphysematous change present. Images through the upper abdomen reveal small calcified gallstone. Impression: Lung RADS 2: Benign appearance. 12 month follow-up screening CT advised. 04/06/23: EXAMINATION: CT lung screening DATE: 04/06/2023 09:27 INDICATION: Personal history of nicotine dependence, prior smoker with 30 pack year history TECHNIQUE: Computed tomography (CT) of the chest was performed without intravenous contrast. The dose-length product (DLP) was 96.65 mGy-cm. Automated exposure control and iterative reconstruction technique were employed. COMPARISON: None FINDINGS: There is moderate to severe emphysema. There are areas of scarring in the lower lobes. Small nodules of the right upper lobe measure up to 3 mm. There is a 5 mm nonsolid nodule of the right lung apex. No pleural effusion or pneumothorax. There are changes of coronary artery bypass grafting. Cardiomegaly is noted. There are no pathologically enlarged thoracic lymph nodes. Venous collaterals are noted in the chest wall. A dual-lead cardiac pacemaker of the left chest wall ends with leads in expected locations. Cholelithiasis is noted. There is severe scarring and atrophy posterior medially in the right kidney. IMPRESSION: 1. Lung-RADS category 2: Benign appearance or behavior. Continue annual screening with noncontrast low-dose chest CT in 12 months. Review of Systems 2 Constitutional: Constitutional: Reports no additional constitutional complaints Eyes: Eyes: Reports no additional eye complaints ENT: Reports system reviewed and no additional complaints, except as documented Cardiovascular: Cardiovascular: Reports no additional cardiovascular complaints Respiratory: Respiratory: Reports no additional respiratory complaints Gastrointestinal: Gastrointestinal: Reports no additional gastrointestinal complaints Musculoskeletal: Musculoskeletal: Reports no additional musculoskeletal complaints Neurologic: Reports system reviewed and no additional complaints, except as documented Psychiatric: Psychiatric: Reports no additional psychiatric complaints Endocrine: Endocrine: Reports no additional endocrine complaints Hematologic/Lymphatic: Hematologic/Lymphatic: Reports no additional hematologic/lymphatic complaints Allergic/Immunologic: Allergic/Immunologic: Reports no additional allergic/immunologic complaints [facility] Past Medical History Medical History (Updated 05/06/25 @ 10:03 by Nicholas Ghosh MD) Abnormal CT scan, chest Adenomatous colon polyp GERD (gastroesophageal reflux disease) Hypertension Heart disease Coronary artery disease Allergies Family History Family History (Updated 05/05/25 @ 21:05 by Kike Soni RN) Father Hypertension Mother Hypertension Sibling Hypertension Social History Social History Smoking packs per day: 1.5 Smoking cigarettes per day: 30.0 Years smoked: 31 Smoking pack-years: 46.50 Smoking status: Former smoker Tobacco type: cigarettes Second hand tobacco smoke exposure: No Smoking end date: 12/25/08 Alcohol intake: former Substance use: never Substance use type: does not use Lack of Transportation: No Lack of Food: Never True Current Housing: I Have Housing Concerned About Future Housing: No Difficulty Paying Gas/Electric Bills: No Difficulty Paying for Meds: No Currently Unemployed: No Education: Bachelor's Degree Difficulty w/ Childcare or Family Care: No Living arrangements: with family Spiritual care concerns: No Meds Home Medications and Allergies Home Medications ?Medication ?Instructions ?Recorded ?Confirmed ?Type aspirin 81 mg tablet,delayed 81 mg PO DAILY 09/03/21 05/05/25 History release clopidogrel 75 mg tablet 75 mg PO DAILY 09/03/21 05/05/25 History metoprolol succinate 100 mg 100 mg PO BID 09/03/21 05/05/25 History tablet,extended release 24 hr simvastatin 20 mg tablet 20 mg PO HS 09/03/21 05/05/25 History pantoprazole 40 mg tablet,delayed 40 mg PO QAM #30 tabs 10/11/23 05/05/25 Rx release losartan 50 mg tablet 50 mg PO DAILY 05/05/25 05/05/25 History spironolactone 25 mg tablet 12.5 mg PO DAILY 05/05/25 05/05/25 History Allergies Allergy/AdvReac Type Severity Reaction Status Date / Time Heparin Analogues Allergy Mild Unknown Verified 05/05/25 16:49 Vital Signs Vital Signs - 24 hr 05/05/25 16:18 05/05/25 16:46 05/05/25 16:48 Temperature 36.3 C L Pulse Rate 118 H 117 H 117 H Respiratory Rate 16 17 17 Blood Pressure 151/102 H 144/95 H 144/95 H Pulse Oximetry 100 100 100 Oxygen Delivery Room Air Room Air 05/05/25 17:37 05/05/25 17:38 05/05/25 19:06 Temperature Pulse Rate 120 H 120 H 93 Respiratory Rate 17 16 Blood Pressure 146/102 H Pulse Oximetry 99 96 Oxygen Delivery 05/05/25 19:15 05/05/25 19:30 05/05/25 19:31 Temperature Pulse Rate 98 102 H 102 H Respiratory Rate 21 H 12 13 Blood Pressure 136/83 Pulse Oximetry 98 100 100 Oxygen Delivery 05/05/25 19:45 05/05/25 20:43 05/05/25 20:45 Temperature Pulse Rate 70 105 H Respiratory Rate 17 Blood Pressure Pulse Oximetry 99 100 Oxygen Delivery Room Air 05/05/25 20:54 05/05/25 22:00 05/05/25 23:43 Temperature 36.6 C 36.7 C Pulse Rate 96 112 H 113 H Respiratory Rate 16 16 Blood Pressure 120/73 129/82 Pulse Oximetry 100 97 Oxygen Delivery 05/06/25 00:00 05/06/25 00:00 05/06/25 02:00 Temperature Pulse Rate 112 H 70 Respiratory Rate Blood Pressure Pulse Oximetry 97 Oxygen Delivery Room Air 05/06/25 04:00 05/06/25 04:00 05/06/25 04:00 Temperature 36.8 C Pulse Rate 114 H 115 H Respiratory Rate 16 Blood Pressure 134/89 Pulse Oximetry 98 98 Oxygen Delivery Room Air 05/06/25 06:00 05/06/25 07:46 Temperature 36.8 C Pulse Rate 105 H 94 Respiratory Rate 16 Blood Pressure 128/76 Pulse Oximetry 98 Oxygen Delivery Exam 2 Const: General: cooperative, healthy appearing and comfortable O rientation/consciousness: oriented to person, oriented to place and oriented to time HENMT: Head: normal to inspection Ears: hearing grossly normal bilaterally Eyes: General: appearance normal, both eyes and all related structures Neck: Neck: normal visual inspection Chest: Chest palpation & inspection: normal inspection of the chest Resp: Effort & Inspection: normal respiratory effort and able to speak in complete sentences Auscultation: no crackles, no rales, no rhonchi, no wheezes and lung sounds not diminished Cardio: Jugular venous distension: no JVD GI: Inspection: normal to inspection GI Palp: No abdominal tenderness Skin: General skin exam: normal color Neuro: General: oriented to person, oriented to place and oriented to time Extrem: General: normal to inspection and no pedal edema Psych: Appearance: grossly normal Results Laboratory Findings 05/06/25 03:54 05/06/25 03:54 ABG, PT/INR, D-dimer: PT/INR, D-dimer PT 13.8 Seconds (11.1-14.7) 05/06/25 03:54 INR 1.1 05/06/25 03:54 Abnormal lab findings: Abnormal Labs 05/05/25 05/06/25 16:46 03:54 RBC 4.30 L Hgb 13.8 L Hct 41.4 L [place] % (Auto) 9.0 H [place] # (Auto) 0.7 H 0.8 H Total Bilirubin 2.1 H 2.1 H NT-Pro-B Natriuret Pep 1840 H 2930 H Total Protein 8.3 H 8.6 H Diagnostic Findings Additional studies: ITS Impressions Chest CTA 05/05/25 17:46
[2025-05-06] MEDS: METOPROLOL SUCCINATE EXT REL 100 MG TABCR PO ×2 (13:11→20:50)
--- NOTE | 2025-05-06 13:36 | P.PNIM_ITS ---
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 Continue Fondaparinux due to Heparin allergy ECHO pending Pulmonology following (2) Abnormal CT scan, chest: Code(s): R93.89 - Abnormal findings on diagnostic imaging of other specified body structures Status: Acute Assessment and Plan: Discussed with Dr Ghosh from pulmonology (3) Coronary artery disease: Code(s): I25.10 - Atherosclerotic heart disease of [place] coronary artery without angina pectoris Status: Chronic Assessment and Plan: Patient on Plavix and Aspirin Will discontinue Plavix for now, and patietn will follow up with vascular surgery as after discharge for further adjustments (4) GERD (gastroesophageal reflux disease): Code(s): K21.9 - Gastro-esophageal reflux disease without esophagitis Status: Chronic Assessment and Plan: * Continue famotidine and or Protonix once patient's doses have been confirmed and verified. Plan DVT prophylaxis on Fondaparinux Subjective Date/time seen: 05/06/25 13:36 Interval history: Comfortable at bedside Review of Systems Review of Systems: All systems reviewed & are unremarkable except as noted in HPI and below Exam Const: General: comfortable and no acute distress Other: Sitting in stretcher without any complaints at this time. HENMT: Face/Nose/Sinus: Normal nares present Mouth: Yes moist mucous membranes Eyes: General: appearance normal, both eyes and all related structures Sclera: sclerae normal Pupils: Equal, round and reactive pupils present EOM: EOMs intact bilaterally Neck: Neck: supple and no JVD Lymphatic: lymphadenopathy not noted Resp: Effort & Inspection: normal respiratory effort Auscultation: clear to auscultation bilaterally Cardio: Rate: tachycardic Rhythm: regular rhythm Heart sounds: no gallops, no murmurs and no rubs GI: Auscultation: normal bowel sounds Skin: General skin exam: normal color, no rashes or lesions noted and no erythema Wounds: no wounds Neuro: General: gait normal Cranial nerves: Yes Equal, round and reactive pupils present Speech: normal speech Motor exam (neuro): 5/5 motor strength present throughout and Normal motor muscle tone present throughout Sensory Exam: normal sensation Extrem: General: normal to inspection, no edema and no pedal edema Psych: Mental Status: mental status grossly normal Affect: normal affect Objective Data Vital Signs Vital Signs: Vital Signs - 24 hr 05/05/25 16:18 05/05/25 16:46 05/05/25 16:48 Temperature 97.4 F L Pulse Rate 118 H 117 H 117 H Respiratory Rate 16 17 17 Blood Pressure 151/102 H 144/95 H 144/95 H Pulse Oximetry 100 100 100 Oxygen Delivery Room Air Room Air 05/05/25 17:37 05/05/25 17:38 05/05/25 19:06 Temperature Pulse Rate 120 H 120 H 93 Respiratory Rate 17 16 Blood Pressure 146/102 H Pulse Oximetry 99 96 Oxygen Delivery 05/05/25 19:15 05/05/25 19:30 05/05/25 19:31 Temperature Pulse Rate 98 102 H 102 H Respiratory Rate 21 H 12 13 Blood Pressure 136/83 Pulse Oximetry 98 100 100 Oxygen Delivery 05/05/25 19:45 05/05/25 20:43 05/05/25 20:45 Temperature Pulse Rate 70 105 H Respiratory Rate 17 Blood Pressure Pulse Oximetry 99 100 Oxygen Delivery Room Air 05/05/25 20:54 05/05/25 22:00 05/05/25 23:43 Temperature 98 F 98.1 F Pulse Rate 96 112 H 113 H Respiratory Rate 16 16 Blood Pressure 120/73 129/82 Pulse Oximetry 100 97 Oxygen Delivery 05/06/25 00:00 05/06/25 00:00 05/06/25 02:00 Temperature Pulse Rate 112 H 70 Respiratory Rate Blood Pressure Pulse Oximetry 97 Oxygen Delivery Room Air 05/06/25 04:00 05/06/25 04:00 05/06/25 04:00 Temperature 98.3 F Pulse Rate 114 H 115 H Respiratory Rate 16 Blood Pressure 134/89 Pulse Oximetry 98 98 Oxygen Delivery Room Air 05/06/25 06:00 05/06/25 07:46 05/06/25 08:00 Temperature 98.2 F Pulse Rate 105 H 94 116 H Respiratory Rate 16 Blood Pressure 128/76 Pulse Oximetry 98 Oxygen Delivery 05/06/25 08:00 08/11/25 10:00 05/06/25 11:20 Temperature 98.3 F Pulse Rate 120 H 112 H Respiratory Rate 20 Blood Pressure 125/72 Pulse Oximetry 98 98 Oxygen Delivery Room Air 05/06/25 13:11 Temperature Pulse Rate 114 H Respiratory Rate Blood Pressure Pulse Oximetry Oxygen Delivery Intake/Output Intake/Output: Intake & Output 05/03/25 05/04/25 05/05/25 05/06/25 23:59 23:59 23:59 23:59 Intake Total 574 Output Total 412 Balance 162 Meds/Results Medications: Active Medications Generic Name Dose Route Start Last Admin Trade Name Freq PRN Reason Stop Dose Admin Fondaparinux 2.5 mg 05/06/25 19:00 Fondaparinux Sodium 2.5 Mg/0.5 Ml Syringe SUB-Q Q24H MARIO Fondaparinux 5 mg 05/06/25 19:00 Fondaparinux Sodium 5 Mg/0.4 Ml Syringe SUB-Q Q24H MARIO Metoprolol Succinate 100 mg 05/06/25 12:40 05/06/25 13:11 Metoprolol Succinate Ext Rel 100 Mg Tabcr PO 100 mg Q12HR MARIO Administration Perflutren Lipid Microsphere 0 ml 05/05/25 20:03 Perflutren Lipid Microspheres 1.5 Ml Vial Diluted To 10 Ml Total Volume IV PUSH 05/08/25 20:04 ONCE PRN adequate visualization Protocol Radiology Results: ITS Impressions Chest CTA 05/05/25 17:46 IMPRESSION: Small nonocclusive segmental pulmonary emboli in the right upper lobe. Small clot burden, noting inadequate visualization of the subsegmental and segmental arteries in the right middle lobe and right lower lobe. RV/LV ratio less than 1. Hepatic vein reflux as can be seen with right heart dysfunction. 9 mm anterior groundglass nodule in the right upper lobe, slightly increased in size since 2022 examination, recommend referral for resection. Asymmetric left gynecomastia, recommend mammography and breast ultrasound. Mediastinal lymphadenopathy. Venous Doppler Study 05/06/25 10:36 IMPRESSION: 1: No lower extremity deep venous thrombosis. Labs Labs: Laboratory Results - last 24 hr 05/05/25 05/05/25 05/05/25 16:46 19:28 22:12 WBC 8.2 RBC 4.30 L Hgb 13.8 L Hct 41.4 L MCV 96.3 MCH 32.1 MCHC 33.3 RDW 13.1 Plt Count 193 MPV 9.8 Immature Gran % (Auto) 0.2 Neut % (Auto) 61.7 Lymph % (Auto) 24.9 [place] % (Auto) 9.0 H Eos % (Auto) 3.8 Baso % (Auto) 0.4 Lymph # (Auto) 2.05 [place] # (Auto) 0.7 H Eos # (Auto) 0.3 Baso # (Auto) 0.0 Abs Immat Gran (auto) 0.02 Absolute Neuts (auto) 5.1 Absolute Nucleated RBC 0.000 Nucleated RBC % 0.0 PT 14.0 INR 1.1 APTT 25.8 Sodium 140 Potassium 4.3 Chloride 104 Carbon Dioxide 29 Anion Gap 7 BUN 20 Creatinine 1.22 Estim Creat Clear Calc 56 Estimated GFR 59 Glucose 98 Calcium 9.8 Magnesium Total Bilirubin 2.1 H AST 47 ALT 32 Alkaline Phosphatase 55 Troponin I < 0.012 < 0.012 < 0.012 NT-Pro-B Natriuret Pep 1840 H Total Protein 8.3 H Albumin 4.6 Lipase 208 05/06/25 03:54 WBC 9.5 RBC 4.67 Hgb 15.1 Hct 44.7 MCV 95.7 MCH 32.3 MCHC 33.8 RDW 13.2 Plt Count 209 MPV 10.2 Immature Gran % (Auto) 0.3 Neut % (Auto) 62.5 Lymph % (Auto) 25.5 [place] % (Auto) 8.0 Eos % (Auto) 3.3 Baso % (Auto) 0.4 Lymph # (Auto) 2.41 [place] # (Auto) 0.8 H Eos # (Auto) 0.3 Baso # (Auto) 0.0 Abs Immat Gran (auto) 0.03 Absolute Neuts (auto) 5.9 Absolute Nucleated RBC 0.000 Nucleated RBC % 0.0 PT 13.8 INR 1.1 APTT 32.4 Sodium 141 Potassium 4.2 Chloride 103 Carbon Dioxide 27 Anion Gap 11 BUN 20 Creatinine 1.20 Estim Creat Clear Calc 53 Estimated GFR 60 Glucose 92 Calcium 9.9 Magnesium 1.8 Total Bilirubin 2.1 H AST 50 ALT 39 Alkaline Phosphatase 57 Troponin I NT-Pro-B Natriuret Pep 2930 H Total Protein 8.6 H Albumin 4.9 Lipase Quality VTE Prophylaxis VTE prophylaxis: pharmacologic ordered
--- NOTE | 2025-05-06 17:49 | PC.NURSE ---
This patient, Shady Herman, was transferred to [facility] on 05/06/25 at 1749. Personal belongings sent with patient. Report given to LADARIUS Becker. Appropriate documentation sent with patient.
--- NOTE | 2025-05-06 18:09 | PC.NURSE ---
Patient received from IMU at 17:50. Patient oriented to unit's policies and procedures
[2025-05-06] MEDS: FONDAPARINUX SODIUM 2.5 MG/0.5 ML SYRINGE SUB-Q (18:17)
[2025-05-06] MEDS: FONDAPARINUX SODIUM 5 MG/0.4 ML SYRINGE SUB-Q (18:17)
[2025-05-06] MEDS: LOSARTAN POTASSIUM 50 MG TABLET PO (20:50)
[2025-05-06] MEDS: SIMVASTATIN 20 MG TABLET PO (20:50)
[2025-05-07] VITALS: PULSE 107
[2025-05-07 04:00] VITALS: PULSE 107
[2025-05-07 05:46] VITALS: BP 125/73; PULSE 114; RESP 16; TEMP 36.2; O2SAT 99
[2025-05-07 06:23] LABS: Potassium 4.3 mmol/L (3.4-5.0)
[2025-05-07 08:00] VITALS: PULSE 114
[2025-05-07 08:20] VITALS: PULSE 114
[2025-05-07] MEDS: ASPIRIN 81 MG ENTERIC TABLET PO (08:20)
[2025-05-07] MEDS: METOPROLOL SUCCINATE EXT REL 100 MG TABCR PO (08:20)
--- NOTE | 2025-05-07 08:34 | P.PNPL_ITS ---
Progress Note: A&P Assessment and Plan (1) Pulmonary embolism: Qualifiers: Pulmonary embolism type: single subsegmental (without acute cor pulmonale) Qualified Code(s): I26.93 - Single subsegmental thrombotic pulmonary embolism without acute cor pulmonale Code(s): I26.99 - Other pulmonary embolism without acute cor pulmonale Status: Acute Assessment and Plan: 69-year-old with a history of hypertension, hyperlipidemia, coronary artery disease status post CABG February of 2009, atrial fibrillation since 2002 status post permanent pacemaker September of 2017 then developed low EF and status post defibrillator 08/2023, peripheral arterial disease status post right femoral bypass 09/01/2020 on plavix and ASA 81, DVT X 3 and PE X1 s/p warfarin 2001 to 09/01/2020. Regarding his DVT # 1 and PE # 1. In 2001 the patient developed right leg pain and ankle swelling and was treated for congestive heart failure. 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 He was treated at [facility] in [place] for ankle DVT and lung blood clot and was discharged on warfarin. 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 Patient was treated with Lasix and his warfarin was continued. 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 As workup for his congestive heart failure he was told he needed a CABG at [facility]. Ultrasound showed right ankle DVT but no lung involvement. His left internal jugular was clogged and he does not know if there was a thrombus or not. He was transferred to [facility] and underwent a 3 vessel coronary artery bypass. At that time he was told he was allergic to heparin but does not know any details and he was discharged on warfarin. DVT #2 and # 3. Occurred while he was on warfarin and aspirin 81 and he does not remember the doctor's stating that his warfarin was low and he would get his warfarin levels checked routinely and generally they were in the 2-3 range but sometimes a little higher or a little lower. 09/01/2020: Patient had a femoral-popliteal bypass at [facility] and warfarin was discontinued and he was placed on Plavix 75 and aspirin 81. Follows with [facility] (Dr Bradford De Luna and Dr Dodson) and had an echocardiogram on 03/2024 with an EF of 48%. Echocardiogram 03/2025 with an EF of 42%. 05/05/25: Patient is usual state of health. In the afternoon he woke up and his heart rate was 117. He continued to deny any shortness of breath. He presented to the emergency department with blood pressure 151/102, heart rate 118, room air saturations 100%. White blood cell count 8.2, creatinine 1.22, troponin negative x3, BNP 1840. CT angiogram of the chest showed nonocclusive PE right upper lobe with an adequate visualizations of the sub segmental and segmental right middle lobe and right lower lobe arteries. Patient was started on for fundaparinux. Repeat BNP 2930. 05/06/25: Plan: patient with a history of recurrent DVT and PE since 2001 and recommend lifelong anticoagulation. Currently on fondaparinux due to heparin allergy. He has been hemodynamically stable with adequate BP and on room air with saturations 98%. Echocardiogram and lower extremity Dopplers have been ordered. Would monitor the patient overnight to make sure there is no acute bleeding with anticoagulation. Will transition patient to oral anticoagulant that his insurance will cover. Need to discuss with vascular surgery team at [facility] the need for dual anti-platelet therapy while he is anticoagulated for his PE. 05/07/25: patient states he slept well. He denies any shortness of breath or dyspnea on exertion walking around the room. Denies fever, chills, rigors, cough, phlegm, hemoptysis, hematuria, blood in his bowel movements. He is afebrile. Currently is on room air with saturations 98%. Plan: hemodynamically stable, remains on room air and no active bleeding On fondaparinux. echocardiogram pending. of note he has failed warfarin in the past. If echocardiogram returns without significant pathology patient is ready for discharge from a pulmonary perspective on these medications: Oral anticoagulant the patient can afford (not warfarin) anti-platelet therapy for peripheral arterial disease bypass procedure per hospitalist. Discussed with Domonique Dykes, will sign off, call with questions. (2) Pulmonary nodule: Code(s): R91.1 - Solitary pulmonary nodule Status: Acute Assessment and Plan: Patient is a 51 pack year tobacco use, quit in 2008. 05/06/25: I reviewed patient's CT scan from 04/06/2023 and 05/05/2023 with the radiologist. Patient has an apical right upper lobe ground-glass infiltrate with minimal change since 04/06/2023, per his measurements 7.7 to 8.1 but difficult to measure given its ground-glass appearance. Plan: Recommend repeating CT scan in 6 months. 05/07/25: Plan: patient should have a repeat CT scan in 6 months. he will follow-up with the HS system. I told the patient that he should take a disc with his pre vious CT scans from 04/06/2023, 04/10/2025 and 05/05/2025 with him. I have mentioned this to the nurse for Radiology to burn him a disc and give this disc to him on discharge. (3) PAD (peripheral artery disease): Code(s): I73.9 - Peripheral vascular disease, unspecified Status: Acute Assessment and Plan: Patient has been on aspirin 81 and Plavix 75 q.day since his right femoral arterial bypass on 09/01/2020 at [facility]. Patient is followed in the vascular clinic and was told he would be on Plavix and aspirin the remainder of his life. 05/06/25: need to discuss with vascular surgery team at [facility] the need for dual anti-platelet therapy while he is anticoagulated for his PE. 05/07/25: Now that the patient will be anticoagulated for PE, hospitalist team to manage anti-platelet therapy for his right femoral-popliteal arterial bypass on 09/01/2020. Subjective Date/time seen: 05/07/25 08:34 Interval history: 05/06/2025: This is a new pulmonary consult for pulmonary embolism. 69-year-old with a history of hypertension, hyperlipidemia, coronary artery disease status post CABG February of 2009, atrial fibrillation since 2002 status post permanent pacemaker September of 2017 then developed low EF and status post defibrillator 08/2023, peripheral arterial disease status post right femoral bypass 09/01/2020 on plavix and ASA 81, DVT X 3 and PE X1 s/p warfarin 2001 to 09/01/2020. Regarding his DVT # 1 and PE # 1. In 2001 the patient developed right leg pain and ankle swelling and a CHF exacerbation. 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 He was treated at [facility] in [place] for CHF, ankle DVT and lung blood clot and was discharged on warfarin. 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 Patient was treated for CHF exacerbation with Lasix and his warfarin was continued. 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 As workup for his CHF exacerbation he was told he needed a CABG. Ultrasound showed right ankle DVT but no lung involvement. His left internal jugular was clogged and he does not know if there was a thrombus or not. Given his CHF, left internal jugular occlusion he was transferred to [facility] and underwent a 3 vessel coronary artery bypass. At that time he was told he was allergic to heparin but does not know any details and he was discharged on warfarin. discharged at 10 days due to difficulty getting his warfarin adjusted. DVT #2 And # 3. Occurred while he was on warfarin and aspirin 81 and he does not remember the doctor's stating that his warfarin was low and he would get his warfarin levels checked routinely and generally they were in the 2-3 range but sometimes a little higher or a little lower. 09/01/2020: Patient had a femoral bypass at [facility] and warfarin was discontinued and he was discharged on Plavix 75 and aspirin 81. Baseline: Patient walks on the treadmill Tuesday and Tuesday for an hour and 10 minutes at 3 miles, he sweats, his heart rate goes to 115 and he does this at the gymnasium. On Tuesdays and he stretches in his house and does light work out. Patient smoked tobacco from 1976 to December of 2008 at 1 and half packs per day for total of 51 pack years. Patient was exposed to secondhand smoke from his father. 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 05/06/25: Patient was in his usual state of health on 05/05/2025 in the morning. He was doing fine with no fever chills, rigors, phlegm production, hemoptysis, shortness of breath. In the afternoon he woke up and his heart rate was 117. He continued to deny any shortness of breath. He presented to the emergency department with blood pressure 151/102, heart rate 118, room air saturations 100%. White blood cell count 8.2, creatinine 1.22, troponin negative x3, BNP 1840. CT angiogram of the chest showed nonocclusive PE right upper lobe with an adequate visualizations of the sub segmental and segmental right middle lobe and right lower lobe arteries. There is a 9 mm apical right upper lobe ground-glass infiltrate with minimal change since 04/06/2023. Patient was started on for fundaparinux. Patient denied any recent leg trauma, long car rides, train rides or plane rides. Patient states he has no family history of blood clots. Later in the day patient had lower extremity Dopplers which were negative for DVT. 05/07/25: patient states he slept well. He denies any shortness of breath or dyspnea on exertion walking around the room. Denies fever, chills, rigors, cough, phlegm, hemoptysis, hematuria, blood in his bowel movements. He is afebrile. Currently is on room air with saturations 98%. DATA: 05/07/25: EXAMINATION:US venous doppler LE INDICATION:Leg pain TECHNIQUE: Multiple grayscale, color flow and Doppler images of the right and left lower extremity deep venous systems were obtained and reviewed. COMPARISON:No prior studies for comparison. FINDINGS: The common femoral, superficial femoral and popliteal veins demonstrate normal respiratory variation, augmentation and compressibility. Color flow is also seen within the posterior tibial, peroneal, greater saphenous and profunda veins. IMPRESSION: 1: No lower extremity deep venous thrombosis. 05/05/25: EXAMINATION: CTA chest PE protocol INDICATION: palpitations, tachycardia, hx PE COMPARISON: CT lung screening 04/10/2025 and 04/06/2023. FINDINGS: Lung parenchyma and airways: Architectural simplification and extensive scarring in the lower lungs. 9 mm groundglass nodule in the right upper lobe. 4 mm solid nodule in the right upper lobe, stable since 2022, likely benign. Patent airways. Pleura: Unremarkable. Thoracic inlet, axillae and chest wall: Asymmetric gynecomastia on the left. Venous collaterals in the right chest wall. Thoracic aorta: No significant dilation. No dissection. Mediastinum: Dilated central pulmonary arteries enlarged pretracheal lymph nodes. Heart and pericardium: Status post CABG. Pacing leads terminating in good position. Cardiomegaly. RV/LV ratio less than 1. Coronary artery calcifications: Moderate. Upper abdomen: Hepatic vein reflux. Gallstone versus adjacent vascular calcification. Right renal scarring. Bones: No acute osseous finding. Pulmonary arteries: Study quality: Motion artifact limits evaluation of the subsegmental and segmental right middle lobe and right lower lobe pulmonary arteries. Small nonocclusive segmental pulmonary emboli in the right upper lobe. IMPRESSION: Small nonocclusive segmental pulmonary emboli in the right upper lobe. Small clot burden, noting inadequate visualization of the subsegmental and segmental arteries in the right middle lobe and right lower lobe. RV/LV ratio less than 1. Hepatic vein reflux as can be seen with right heart dysfunction. 9 mm anterior groundglass nodule in the right upper lobe, slightly increased in size since 2022 examination, recommend referral for resection. Asymmetric left gynecomastia, recommend mammography and breast ultrasound. Mediastinal lymphadenopathy. 04/10/25: CT Scan of the Chest without Contrast: Clinical Indication: Lung cancer screening, nicotine dependence Technique: Contiguous sections were acquired throughout the chest without intravenous contrast. Dose reduction technique was used on this scan by utilizing automated exposure control and iterative reconstruction technique. The dose-length product (DLP) was 112.20 mGy-cm. COMPARISON: 04/06/2023 Findings: There is no evidence of any significant mediastinal, hilar or axillary lymphadenopathy. There are atherosclerotic calcifications of the aorta and coronary arteries. There is no evidence of pleural or pericardial effusion. Stable right apical groundglass nodule. Stable 3 mm apical nodule. Stable scarring right upper lobe posteriorly. Stable bilateral lower lobe scarring. Stable nodularity with calcification at the right lung base. Bibasilar emphysematous change present. Images through the upper abdomen reveal small calcified gallstone. Impression: Lung RADS 2: Benign appearance. 12 month follow-up screening CT advised. 04/06/23: EXAMINATION: CT lung screening DATE: 04/06/2023 09:27 INDICATION: Personal history of nicotine dependence, prior smoker with 30 pack year history TECHNIQUE: Computed tomography (CT) of the chest was performed without intraveno us contrast. The dose-length product (DLP) was 96.65 mGy-cm. Automated exposure control and iterative reconstruction technique were employed. COMPARISON: None FINDINGS: There is moderate to severe emphysema. There are areas of scarring in the lower lobes. Small nodules of the right upper lobe measure up to 3 mm. There is a 5 mm nonsolid nodule of the right lung apex. No pleural effusion or pneum othorax. There are changes of coronary artery bypass grafting. Cardiomegaly is noted. There are no pathologically enlarged thoracic lymph nodes. Venous collaterals are noted in the chest wall. A dual-lead cardiac pacemaker of the left chest wall ends with leads in expected locations. Cholelithiasis is noted. There is severe scarring and atrophy posterior medially in the right kidney. IMPRESSION: 1. Lung-RADS category 2: Benign appearance or behavior. Continue annual screening with noncontrast low-dose chest CT in 12 months. Review of Systems Constitutional: Constitutional: Reports no additional constitutional complaints Eyes: Eyes: Reports no additional eye complaints ENT: Reports system reviewed and no additional complaints, except as documented Cardiovascular: Cardiovascular: Reports no additional cardiovascular complaints Respiratory: Respiratory: Reports no additional respiratory complaints Gastrointestinal: Gastrointestinal: Reports no additional gastrointestinal complaints Musculoskeletal: Musculoskeletal: Reports no additional musculoskeletal complaints Neurologic: Reports system reviewed and no additional complaints, except as documented Psychiatric: Psychiatric: Reports no additional psychiatric complaints Endocrine: Endocrine: Reports no additional endocrine complaints Hematologic/Lymphatic: Hematologic/Lymphatic: Reports no additional hematologic/lymphatic complaints Allergic/Immunologic: Allergic/Immunologic: Reports no additional allergic/immunologic complaints Exam Const: General: cooperative, healthy appearing and comfortable Orientation/consciousness: oriented to person, oriented to place and oriented to time HENMT: Head: normal to inspection Ears: hearing grossly normal bilaterally Eyes: General: appearance normal, both eyes and all related structures Neck: Neck: normal visual inspection Chest: Chest palpation & inspection: normal inspection of the chest Resp: Effort & Inspection: normal respiratory effort and able to speak in complete sentences Auscultation: no crackles, no rales, no rhonchi, no wheezes and lung sounds not diminished Cardio: Jugular venous distension: no JVD GI: Inspection: normal to inspection Skin: General skin exam: normal color Neuro: General: oriented to person, oriented to place and oriented to time Extrem: General: normal to inspection and no pedal edema Psych: Appearance: grossly normal Objective Data Vital Signs Vital Signs: Vital Signs - 24 hr 05/06/25 10:00 05/06/25 11:20 05/06/25 12:00 Temperature 36.8 C Pulse Rate 120 H 112 H Respiratory Rate 20 Blood Pressure 125/72 Pulse Oximetry 98 98 Oxygen Delivery Room Air 05/06/25 12:00 05/06/25 13:11 05/06/25 14:00 Temperature Pulse Rate 120 H 114 H 113 H Respiratory Rate Blood Pressure Pulse Oximetry Oxygen Delivery 05/06/25 16:00 05/06/25 16:00 05/06/25 20:00 Temperature 36.6 C Pulse Rate 70 100 116 H Respiratory Rate 18 20 Blood Pressure 132/71 Pulse Oximetry 99 98 Oxygen Delivery Room Air 05/06/25 20:00 05/06/25 20:50 05/06/25 21:53 Temperature 36.3 C L Pulse Rate 116 H 115 H 116 H Respiratory Rate 20 Blood Pressure 130/79 Pulse Oximetry 98 Oxygen Delivery 05/07/25 00:00 05/07/25 04:00 05/07/25 05:46 Temperature 36.2 C L Pulse Rate 107 H 107 H 114 H Respiratory Rate 16 Blood Pressure 125/73 Pulse Oximetry 99 Oxygen Delivery 05/07/25 08:20 Temperature Pulse Rate 114 H Respiratory Rate Blood Pressure Pulse Oximetry Oxygen Delivery Intake/Output Intake/Output: Intake & Output 05/04/25 05/05/25 05/06/25 05/07/25 23:59 23:59 23:59 23:59 Intake Total 574 Output Total 1337 Balance -763 Meds/Results Medications: Active Medications Generic Name Dose Route Start Last Admin Trade Name Freq PRN Reason Stop Dose Admin Aspirin 81 mg 05/07/25 09:00 05/07/25 08:20 Aspirin 81 Mg Enteric Tablet PO 81 mg DAILY MARIO Administration Fondaparinux 2.5 mg 05/06/25 19:00 05/06/25 18:17 Fondaparinux Sodium 2.5 Mg/0.5 Ml Syringe SUB-Q 2.5 mg Q24H MARIO Administration Fondaparinux 5 mg 05/06/25 19:00 05/06/25 18:17 Fondaparinux Sodium 5 Mg/0.4 Ml Syringe SUB-Q 5 mg Q24H MARIO Administration Losartan Potassium 50 mg 05/06/25 21:00 05/06/25 20:50 Losartan Potassium 50 Mg Tablet PO 50 mg HS MARIO Administration Metoprolol Succinate 100 mg 05/06/25 12:40 05/07/25 08:20 Metoprolol Succinate Ext Rel 100 Mg Tabcr PO 100 mg Q12HR MARIO Administration Perflutren Lipid Microsphere 0 ml 05/05/25 20:03 Perflutren Lipid Microspheres 1.5 Ml Vial Diluted To 10 Ml Total Volume IV PUSH 05/08/25 20:04 ONCE PRN adequate visualization Protocol Simvastatin 20 mg 05/06/25 21:00 05/06/25 20:50 Simvastatin 20 Mg Tablet PO 20 mg HS MARIO Administration Spironolactone 12.5 mg 05/07/25 09:00 05/07/25 08:20 Spironolactone 12.5 Mg Tablet PO 12.5 mg DAILY MARIO Administration Radiology Results: ITS Impressions Chest CTA 05/05/25 17:46 IMPRESSION: Small nonocclusive segmental pulmonary emboli in the right upper lobe. Small clot burden, noting inadequate visualization of the subsegmental and segmental arteries in the right middle lobe and right lower lobe. RV/LV ratio less than 1. Hepatic vein reflux as can be seen with right heart dysfunction. 9 mm anterior groundglass nodule in the right upper lobe, slightly increased in size since 2022 examination, recommend referral for resection. Asymmetric left gynecomastia, recommend mammography and breast ultrasound. Mediastinal lymphadenopathy. Venous Doppler Study 05/06/25 10:36 IMPRESSION: 1: No lower extremity deep venous thrombosis. Labs Labs: Laboratory Results - last 24 hr 05/06/25 05/07/25 03:54 05:44 Potassium 4.3 NT-Pro-B Natriuret Pep 2930 H
[2025-05-07 08:55] LABS: Hematocrit 43.3 % (42.0-52.0); Hemoglobin 14.4 g/dL (14.0-18.0); Immature Granulocyte Percent A 0.2 % (0-0.5); Lymphocytes Absolute Auto 1.73 K/mm3 (0.9-3.2); Mean Corpuscular HGB Conc 33.3 g/dl (32-36); Mean Corpuscular Hemoglobin 32.0 pg (26-34); Mean Corpuscular Volume 96.2 fl (80-100); Nucleated Red Blood Cells Absolute Auto 0.000 K/mm3 (0.0-0.012); Nucleated Red Blood Cells Perc 0.0 % (0.0-0.2); Platelet Count Result 207 k/mm3 (150-375); Red Blood Count 4.50 M/mm3 (4.6-6.20); White Blood Count 9.2 K/mm3 (4.5-10.0)
[2025-05-07 12:00] VITALS: PULSE 115
--- NOTE | 2025-05-07 14:44 | P.DS_ITS ---
DS: Admitting Diagnosis Discharge Date 05/07/25 Admitting Diagnosis -pulmonary embolism -abnormal CT DS: Discharge Diagnosis Discharge Diagnosis (1) Pulmonary embolism: Qualifiers: Pulmonary embolism type: single subsegmental (without acute cor pulmonale) Qualified Code(s): I26.93 - Single subsegmental thrombotic pulmonary embolism without acute cor pulmonale Code(s): I26.99 - Other pulmonary embolism without acute cor pulmonale Status: Acute (2) Abnormal CT scan, chest: Code(s): R93.89 - Abnormal findings on diagnostic imaging of other specified body structures Status: Acute (3) Coronary artery disease: Code(s): I25.10 - Atherosclerotic heart disease of [place] coronary artery without angina pectoris Status: Chronic (4) GERD (gastroesophageal reflux disease): Code(s): K21.9 - Gastro-esophageal reflux disease without esophagitis Status: Chronic DS: Summary Hospital Course Reason for hospitalization: - pulmonary embolism Hospital Course: Patient is a 69 yo male with who presented to the ED due to elevated HR. CT of the chest was performed that shows a small nonocclusive segmental pulmonary emboli in the right upper lobe. There is a small clot burden noting inadequate visualization of the subsegmental and segmental arteries in the right middle lobe and right lower lobe. The right ventricle/left ventricle ratio was less than 1. Hepatic vein reflux as could be seen with right heart dysfunction is present. There is mediastinal lymphadenopathy present and asymmetric left gynecomastia with recommendation for mammography and breast ultrasound. In addition there is a 9 mm anterior ground-glass nodule in the right upper lobe that is slightly increased in size since 2022 examination and recommend referral for resection. Patient was started on Fondaparinux due to heparin allergy and admitted for further management. While hospitalized, patient remained hemodynamically stable. Patient had negative troponins. Echo was without signs of right heart strain. Patient had persistent tachycardia with EKG showing atrial tachycardia. Patient remained asymptomatic. Case was discussed with Cardiology who recommended no further intervention at this time. Patient is already on metoprolol 100 mg twice daily. He was encouraged to follow up with his parachute packer as an outpatient. He was transitioned to [facility] and instructed to establish with Hematology as an outpatient setting of recurrent DVT/PE. In regards to ground-glass nodule on CT, pulmonology followed and felt this was relatively stable. Dr. Augie recommended that he have a repeat CT scan in 6 months. Patient was also instructed to discuss mammographies/breast ultrasound for asymmetric gynecomastia on CT. Echocardiogram showed EF 30-35%. Patient follows with Cardiology at [facility] and has a known history of systolic heart failure. He will continue his home losartan, metoprolol and Aldactone. Patient appeared euvolemic on discharge. Patient has history of PAD with lower extremity bypass in 2019. During admission, his Plavix was stopped to avoid triple therapy while on Eliquis. He will continue with aspirin and follow up with his vascular surgeon to determine if Plavix is still needed. Patient is discharged home in stable condition. Strict return precautions discussed. Status at Discharge Functional status at discharge: independent ambulation Time Spent with Patient Time attestation: Total time spent providing and/or coordinating discharge services: Time spent: Greater than 30 minutes Exam Narrative: General: NAD Eyes: EOMI ENT: neck supple Cardiovascular: Tachycardic, regular rhythm Respiratory: Clear to auscultation, respirations even and unlabored on RA Gastrointestinal: Soft, non tender Genitourinary: no suprapubic tenderness Musculoskeletal: No edema Skin: warm, dry Neuro: Alert. Psych: Mood appropriate DS: Data Data Completed and Pending Completed studies during hospitalization: - CTA chest - venous doppler Labs on day of discharge: Labs from last 24 hours 05/07/25 05/07/25 05:44 05:40 WBC 9.2 RBC 4.50 L Hgb 14.4 Hct 43.3 MCV 96.2 MCH 32.0 MCHC 33.3 RDW 13.2 Plt Count 207 MPV 10.2 Immature Gran % (Auto) 0.2 Neut % (Auto) 70.2 Lymph % (Auto) 18.8 [place] % (Auto) 8.2 Eos % (Auto) 2.3 Baso % (Auto) 0.3 Lymph # (Auto) 1.73 [place] # (Auto) 0.8 H Eos # (Auto) 0.2 Baso # (Auto) 0.0 Abs Immat Gran (auto) 0.02 Absolute Neuts (auto) 6.5 Absolute Nucleated RBC 0.000 Nucleated RBC % 0.0 Potassium 4.3 Discharge Plan Discharge Attending physician on discharge: Josh Meade Consulting providers: Nicholas Ghosh; Domonique Dykes; Tejas Hart Discharging Clinician: Domonique Dykes Anticipated Discharge Date/Time: 05/07/25 14:34 Patient Disposition: Home Activity: as tolerated Diet: as tolerated Discharge Instructions: Take all medications as prescribed. Follow-up with hematology as outpatient to discuss recurrent blood clots and workup for this. Follow-up with a repeat CT scan of your chest in 6 months with a primary care doctor. Follow-up with your primary care doctor discussed further evaluation of enlarged left breast tissue. Monitor for signs of bleeding while on Eliquis including dark/tarry stools, blood in the stool, blood in the urine. You have been given a coupon to pay for your first month of Eliquis. Make sure to talk to your pharmacy to ensure refills will be affordable moving forward. If you have concerns about cost of Eliquis, talk to your primary doctor before your next prescription is due to avoid running of out medication. Follow-up with your parachute packer for heart failure and elevated heart rate. Stop taking Plavix. Continue aspirin. Follow up with your vascular surgeon to determine if Plavix will be needed skilled nursing. Follow-up with your primary care provider in one week. Return to the emergency department if you develop chest pain, shortness of breath, persistent fever >100.4, confusion, loss of consciousness. Patient Instructions: Antibiotic Form, Clopidogrel (By mouth), Apixaban (By mouth), Pulmonary Embolism (DC) Patient Language: Wolof Stand Alone Forms: General Discharge Information Follow-up/Referrals: Tejas Hart MD [Physician] - Call for Appointment (recurrent blood clots) Timbo,Akash Viveros MD [Primary Care Provider] - Call for Appointment (1 week for hospitalization Repeat CT chest in 1 week Discuss mammogram for enlarged breast tissue) Discharge Medications: New Eliquis 5 mg tablet 10 mg PO BID 7 Days Qty: 28 0RF Eliquis 5 mg tablet 5 mg PO BID Qty: 60 2RF Continued metoprolol succinate 100 mg tablet extended release 24 hr 100 mg PO BID simvastatin 20 mg tablet 20 mg PO HS aspirin 81 mg tablet,delayed release (DR/EC) 81 mg PO DAILY losartan 50 mg tablet 50 mg PO DAILY spironolactone 25 mg tablet 12.5 mg PO DAILY pantoprazole 40 mg tablet,delayed release (DR/EC) 40 mg PO QAM Qty: 30 6RF Discontinued clopidogrel 75 mg tablet 75 mg PO DAILY Date of admission: 05/06/25 10:55 Primary Care Provider: TimboAkash Admitting Provider: Ronnell Fox Attending physician on admission: Ronnell Fox Condition: Stable
== END 2025-05-07 16:25 | disposition home or self-care (01) | DRG 176 ==
LOC: ANHED 17:32 → ANHIMU 20:19 → ANH3MEDSUR 05-06 17:45
PROVIDERS: Emergency Medicine; Nurse Practitioner Adult Health; Admitting Provider Internal Medicine; Emergency Provider Physician Assistant; PCP Internal Medicine; Visit Provider Physician Assistant
DX: I26.99 Other pulmonary embolism without acute cor pulmonale (principal); K21.9 Gastro-esophageal reflux disease without esophagitis; I10 Essential (primary) hypertension; I25.10 Atherosclerotic heart disease of native coronary artery without angina pectoris; I73.9 Peripheral vascular disease, unspecified; E78.5 Hyperlipidemia, unspecified; N62 Hypertrophy of breast; R93.89 Abnormal findings on diagnostic imaging of other specified body structures; Z79.02 Long term (current) use of antithrombotics/antiplatelets; Z79.82 Long term (current) use of aspirin; Z86.0101 Personal history of adenomatous and serrated colon polyps; Z87.891 Personal history of nicotine dependence; Z95.810 Presence of automatic (implantable) cardiac defibrillator; Z95.1 Presence of aortocoronary bypass graft; Z86.718 Personal history of other venous thrombosis and embolism
CPT/HCPCS: 36415; 71275; 80053; 83690; 83735; 83880; 84132; 84484; 85025; 85610; 85730; 93005; 93306; 93970; 96372; 96375; 99291; A9270; G0378; J1652; Q9967